=== PATIENT | female | born 1960 | race Caucasian/White ===

== ENCOUNTER 2016-08-13 20:15 | Emergency (ER) | payer BC ==
[2016-08-13 20:34] VITALS: BP 142/78
--- NOTE | 2016-08-13 20:47 | EDM.PDOC ---
ED HISTORY OF PRESENT ILLNESS - General Chief Complaint: Fever Stated Complaint: POSSIBLE FLU? Time Seen by Provider: 08/13/16 20:33 Source of Information: Reports: Patient History Limitations: Reports: No limitations - History of Present Illness INITIAL COMMENTS - FREE TEXT/NARRATIVE: PT STATES SHE DEVELOPED COUGH AND URI SYMPTOMS YESTERDAY. 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 DENIES CP, SOB, FEVER. Symptom Onset Date: 08/11/16 Timing/Duration: Reports: Day(s): Severity: mild Quality: Reports: Ache Improves with: Reports: None Worsens with: Reports: None Associated Symptoms (General): Reports: cough - Related Data Allergies/ADRs: Allergies Allergy/AdvReac Type Severity Reaction Status Date / Time No Known Drug Allergies Allergy Cannot Verified 08/13/16 20:28 Remember Home Meds: Home Meds Albuterol [Ventolin HFA] 1 puff INH Q4H PRN 08/13/16 [History] Pseudoephedrine HCl [Sudafed] 30 mg PO Q6H PRN 08/13/16 [History] ED ROS GENERAL - Review of Systems Review Of Systems: ROS reveals no pertinent complaints other than HPI. Constitutional: Reports: chills, night sweats HEENT: Reports: No symptoms Respiratory: Reports: Cough Cardiovascular: Reports: No symptoms Endocrine: Reports: no symptoms GI/Abdominal: Reports: No symptoms : Reports: no symptoms Musculoskeletal: Reports: no symptoms Skin: Reports: no symptoms Neurological: Reports: No Symptoms Psychiatric: Reports: No symptoms Hematologic/Lymphatic: Reports: no symptoms Immunologic: Reports: no symptoms ED EXAM, GENERAL - Physical Exam Exam: See Below Exam Limited By: No limitations General Appearance: alert, WD/WN, no apparent distress Eye Exam: bilateral eye: normal inspection Ears: normal external exam, normal canal, normal TMs Nose: clear rhinorrhea, other (MUCOSAL ERYTHEMA) Throat/Mouth: Normal inspection, Normal oropharynx, No airway compromise Head: atraumatic, normocephalic Neck: normal inspection. No: lymphadenopathy (L), lymphadenopathy (R) Respiratory/Chest: no respiratory distress, lungs clear, normal breath sounds, no accessory muscle use, chest non-tender Cardiovascular: regular rate, rhythm, no murmur GI/Abdominal: normal bowel sounds, soft, non tender Extremities: normal inspection, no pedal edema Neurological: alert, oriented, normal cognition Psychiatric: normal affect, normal mood Skin Exam: Warm, Dry, Intact, Normal color, No rash Lymphatic: no adenopathy Course - Orders/Labs/Meds Orders: Active Orders 24 hr Category Date Time Status INFLUENZA A+B AG SCREEN [RM] Stat Lab 08/13/16 20:33 Ordered - Re-Assessments/Exams Free Text/Narrative Re-Assessment/Exam: 08/13/16 21:12 PT AFEBRILE, NONTOXIC APPEARING. INFLUENZA NEGATIVE. Departure - Departure Time of Disposition: 21:15 Disposition: Home, Self-Care 01 Condition: good Clinical Impression: URI (upper respiratory infection) Qualifiers: URI type: unspecified viral URI Qualified Code(s): J06.9 - Acute upper respiratory infection, unspecified; B97.89 - Other viral agents as the cause of diseases classified elsewhere Instructions: Upper Respiratory Infection, Adult, [id number] Forms: ED Department Discharge - My Orders Last 24 Hours: My Active Orders 08/13/16 20:33 INFLUENZA A+B AG SCREEN [RM] Stat - Assessment/Plan Last 24 Hours: My Active Orders 08/13/16 20:33 INFLUENZA A+B AG SCREEN [RM] Stat Assessment:: URI Plan: F/U WITH PCP
[2016-08-13] MEDS ORDERED: Ondansetron 4 MG Tab.DIS PO ONE (21:14)
[2016-08-13] MEDS ORDERED: Ondansetron 4 MG Tab.DIS ONE (21:15)
== END 2016-08-13 21:20 | disposition home or self-care (01) ==
LOC: KA.ED 20:15
DX: J06.9 Acute upper respiratory infection, unspecified (principal); B97.89 Other viral agents as the cause of diseases classified elsewhere
CPT/HCPCS: 87804; 99283; A9270

== ENCOUNTER 2017-02-02 09:30 | Emergency (ER) | payer BC ==
[2017-02-02 09:39] VITALS: BP 148/60
[2017-02-02] MEDS ORDERED: Sodium Chloride 0.9% 5 ML Syringe FLUSH PRN (09:46)
[2017-02-02] MEDS ORDERED: Sodium Chloride 0.9% 1,000 ML IV ONE (09:46)
[2017-02-02] MEDS ORDERED: LORazepam 2 MG/ML SDV IVPUSH ONE (09:46)
--- NOTE | 2017-02-02 09:55 | EDM.PDOC ---
ED HPI GENERAL MEDICAL PROBLEM - General Chief Complaint: Respiratory Problem Stated Complaint: SHORTNESS OF BREATH Time Seen by Provider: 02/02/17 09:43 Source of Information: Reports: Patient History Limitations: Reports: No Limitations - History of Present Illness INITIAL COMMENTS - FREE TEXT/NARRATIVE: PT STATES SHE HAS BECOME GRADUALLY MORE SHORT OF BREATH OVER PAST SEVERAL DAYS. BECAME ANXIOUS AND IS ANTICIPATING RHEUMATOLOGY APPOINTMENT ON 02/05 FOR NEW DIAGNOSIS OF LUPUS. SEEN BY DR POON ON 01/29 WITH SUSPECTED PNEUMONIA AND STARTED ON LEVAQUIN/PREDNISONE. DENIES FEVER, CP, N/V. Onset: Gradual Onset Date: 01/29/17 Duration: Day(s): Severity: Mild Improves with: Reports: None Worsens with: Reports: None Associated Symptoms: Reports: Shortness of Breath - Related Data Allergies Allergy/AdvReac Type Severity Reaction Status Date / Time No Known Drug Allergies Allergy Intermediate Rash Verified 02/02/17 10:09 amoxicillin [From Augmentin] Allergy Cannot Verified 02/02/17 09:39 Remember clavulanic acid Allergy Cannot Verified 02/02/17 09:39 [From Augmentin] Remember Home Meds: Home Meds Albuterol [Ventolin HFA] 1 puff INH Q4H PRN 08/13/16 [History] Pseudoephedrine HCl [Sudafed] 30 mg PO Q6H PRN 08/13/16 [History] Albuterol/Ipratropium [DuoNeb 3.0-0.5 MG/3 ML] 1 ampule INH Q4H 02/02/17 [ History] Levofloxacin [Levofloxacin] 750 mg PO DAILY 02/02/17 [History] Ondansetron [Zofran ODT] 4 mg PO Q6H PRN 02/02/17 [History] Past Medical History HEENT History: Reports: Sinusitis Cardiovascular History: Reports: Hypertension Social & Family History - Tobacco Use Smoking Status *Q: Former Smoker Second Hand Smoke Exposure: No - Caffeine Use Caffeine Use: Reports: Coffee - Recreational Drug Use Recreational Drug Use: No ED ROS GENERAL - Review of Systems Review Of Systems: ROS reveals no pertinent complaints other than HPI. Constitutional: Reports: No Symptoms HEENT: Reports: No Symptoms Respiratory: Reports: Shortness of Breath Cardiovascular: Reports: No Symptoms Endocrine: Reports: No Symptoms GI/Abdominal: Reports: No Symptoms : Reports: No Symptoms Musculoskeletal: Reports: No Symptoms Skin: Reports: No Symptoms Neurological: Reports: No Symptoms Psychiatric: Reports: Anxiety Hematologic/Lymphatic: Reports: No Symptoms Immunologic: Reports: No Symptoms ED EXAM, GENERAL - Physical Exam Exam: See Below Exam Limited By: No Limitations General Appearance: Alert, WD/WN, Anxious Eye Exam: Bilateral Eye: Normal Inspection Nose: Normal Inspection, Normal Mucosa, No Blood Throat/Mouth: Normal Inspection, Normal Oropharynx, No Airway Compromise Neck: Normal Inspection Respiratory/Chest: No Respiratory Distress, Lungs Clear, Normal Breath Sounds, No Accessory Muscle Use, Chest Non-Tender Cardiovascular: Regular Rate, Rhythm, No Murmur GI/Abdominal: Normal Bowel Sounds, Soft, Non-Tender Back Exam: Normal Inspection. No: CVA Tenderness (L), CVA Tenderness (R) Extremities: Normal Inspection, No Pedal Edema Neurological: Alert, Oriented, Normal Cognition Psychiatric: Anxious Skin Exam: Warm, Dry, Intact, Normal Color, No Rash Lymphatic: No Adenopathy Course - Vital Signs Last Recorded V/S: Last Vital Signs Temp 97.9 F 02/02/17 09:34 Pulse 67 02/02/17 09:34 Resp 22 H 02/02/17 09:34 BP 148/60 H 02/02/17 09:34 Pulse Ox 97 02/02/17 09:34 - Orders/Labs/Meds Orders: Active Orders 24 hr Category Date Time Status Peripheral IV Care [RC] . DIRECTED Care 02/02/17 09:46 Ordered Chest 2V [CR] Stat Exams 02/02/17 09:43 Ordered CBC WITH AUTO DIFF [HEME] Stat Lab 02/02/17 09:43 Ordered COMPREHENSIVE METABOLIC PN,CMP [CHEM] Stat Lab 02/02/17 09:43 Ordered Sodium Chloride 0.9% @ 999 MLS/HR (1000ml) Med 02/02/17 09:46 Ordered Sodium Chloride 0.9% [Normal Saline] 1,000 ml IV .BOLUS Sodium Chloride 0.9% [Syrex Flush] Med 02/02/17 09:46 Ordered 5 ml FLUSH Q8HR PRN Peripheral IV Insertion Adult [OM.PC] Routine Oth 02/02/17 09:46 Ordered Medication Orders Sodium Chloride (Normal Saline) 1,000 mls @ 999 mls/hr IV .BOLUS ONE Stop: 02/02/17 10:46 Sodium Chloride (Syrex Flush) 5 ml FLUSH Q8HR PRN PRN Reason: Keep Vein Open Meds: Medications Generic Name Dose Route Start Last Admin Trade Name Freq PRN Reason Stop Dose Admin Sodium Chloride 1,000 mls @ 999 mls/hr 02/02/17 09:46 Normal Saline IV 02/02/17 10:46 .BOLUS ONE Sodium Chloride 5 ml 02/02/17 09:46 Syrex Flush FLUSH Q8HR PRN Keep Vein Open Discontinued Medications Generic Name Dose Route Start Last Admin Trade Name Freq PRN Reason Stop Dose Admin Lorazepam 1 mg 02/02/17 09:46 Ativan IVPUSH 02/02/17 09:47 ONETIME ONE - Radiology Interpretation Free Text/Narrative:: CXR NEGATIVE FOR ACUTE PROCESS - Re-Assessments/Exams Free Text/Narrative Re-Assessment/Exam: 02/02/17 11:03 PT AFEBRILE, NONTOXIC APPEARING, VSS, ANXIETY RESOLVED. DISCUSSED CASE WITH DR Raffy BILLY. WILL GIVE ATIVAN PO TO GO FOR AND F/U ON SATURDAY Departure - Departure Time of Disposition: 11:06 Disposition: Home, Self-Care 01 Condition: Good Clinical Impression: Anxiety Pneumonia Qualifiers: Pneumonia type: due to unspecified organism Laterality: unspecified laterality Lung location: unspecified part of lung Qualified Code(s): J18.9 - Pneumonia, unspecified organism - Discharge Information Instructions: Panic Attacks, [id number], Upper Respiratory Infection, Adult, [id number] Referrals: Mildred Montenegro MD [Primary Care Provider] - Additional Instructions: FOLLOW UP WITH RHEUMATOLOGY NEXT WEEK SCHEDULED. CONTACT DR POON FOR MEDICATION REFILL ON SATURDAY. RETURN TO ER SOONER IF SYMPTOMS CONTINUE - My Orders Last 24 Hours: My Active Orders 02/02/17 09:43 Chest 2V [CR] Stat CBC WITH AUTO DIFF [HEME] Stat COMPREHENSIVE METABOLIC PN,CMP [CHEM] Stat 02/02/17 09:46 Peripheral IV Care [RC] . DIRECTED Sodium Chloride 0.9% @ 999 MLS/HR (1000ml) Sodium Chloride 0.9% [Normal Saline] 1,000 ml IV .BOLUS Sodium Chloride 0.9% [Syrex Flush] 5 ml FLUSH Q8HR PRN Peripheral IV Insertion Adult [OM.PC] Routine - Assessment/Plan Last 24 Hours: My Active Orders 02/02/17 09:43 Chest 2V [CR] Stat CBC WITH AUTO DIFF [HEME] Stat COMPREHENSIVE METABOLIC PN,CMP [CHEM] Stat 02/02/17 09:46 Peripheral IV Care [RC] . DIRECTED Sodium Chloride 0.9% @ 999 MLS/HR (1000ml) Sodium Chloride 0.9% [Normal Saline] 1,000 ml IV .BOLUS Sodium Chloride 0.9% [Syrex Flush] 5 ml FLUSH Q8HR PRN Peripheral IV Insertion Adult [OM.PC] Routine Assessment:: ANXIETY Plan: F/U AT CLINIC NEXT WEEK
[2017-02-02 10:43] LABS: SODIUM,NA 145 mmol/L (136-145)
[2017-02-02 10:44] LABS: CHLORIDE,CL 107 mmol/L (98-115)
[2017-02-02] MEDS ORDERED: LORazepam 0.5 MG Tab PO ONE (11:05)
== END 2017-02-02 11:20 | disposition home or self-care (01) ==
LOC: KA.ED 09:30
DX: J18.9 Pneumonia, unspecified organism (principal); F41.9 Anxiety disorder, unspecified; I10 Essential (primary) hypertension; Z88.1 Allergy status to other antibiotic agents; Z88.8 Allergy status to other drugs, medicaments and biological substances; Z79.899 Other long term (current) drug therapy; Z87.891 Personal history of nicotine dependence
CPT/HCPCS: 36415; 71020; 80053; 85025; 96361; 96374; 99285; A9270; J2060; J7030

== ENCOUNTER 2017-04-05 15:25 | Emergency (ER) | payer BC ==
[2017-04-05] MEDS ORDERED: Aspirin 81 MG Tab.Chew PO ONE (16:07)
[2017-04-05] MEDS ORDERED: Morphine 2 MG/ML Syringe IVPUSH ONE (16:08)
[2017-04-05] MEDS ORDERED: Sodium Chloride 0.9% 1,000 ML IV ONE (16:09)
[2017-04-05 16:23] LABS: CHLORIDE,CL 106 mmol/L (98-115); SODIUM,NA 141 mmol/L (136-145)
--- NOTE | 2017-04-05 16:29 | EDM.PDOC ---
ED HPI GENERAL MEDICAL PROBLEM - General Chief Complaint: Chest Pain Stated Complaint: PAIN Time Seen by Provider: 04/05/17 15:35 Source of Information: Reports: Patient, Family () History Limitations: Reports: No Limitations - History of Present Illness INITIAL COMMENTS - FREE TEXT/NARRATIVE: 56-year-old female presents with complaints of heaviness in her legs, acute exacerbation of chronic low back pain. Patient states that she's had a long history of difficulties with her back currently has been seen pain management for injections. She had an MRI lumbar spine, thoracic spine, cervical spine earlier this year. She has multiple levels of foraminal stenosis due to degenerative scoliosis lumbar spine. She's been through physical therapy, medications, and injections for her back pain and leg symptoms. She has not had any significant relief. She states she has a neurosurgical consultation June 2017. She does take some other medications for her low back which include muscle relaxers and also takes medication for some anxiety. She states she stopped all her medications and last 48 hours and that seems to make her symptoms worse. She has had recent treatment for pneumonia and was on antibiotics for this and has completed the medication. She denies chest pain that still feels some shortness of breath. The symptoms all seemed to improve if she is able to lie down and rest. She denies any bowel or bladder incontinence and no saddle paresthesias. Onset: Gradual Duration: Day(s):, Constant, Getting Worse Location: Reports: Chest, Back, Lower Extremity, Left, Lower Extremity, Right Quality: Reports: Ache Severity: Moderate Improves with: Reports: Rest Worsens with: Reports: Movement Associated Symptoms: Reports: Cough, Shortness of Breath, Weakness. Denies: Chest Pain, Diaphoresis, Fever/Chills, Nausea/Vomiting Treatments CHECKERER HAND: Reports: Other (see below) (ms. drew) Back Pain Score (Numeric/FACES): 2 - Related Data Allergies Allergy/AdvReac Type Severity Reaction Status Date / Time amoxicillin [From Augmentin] Allergy Cannot Verified 04/05/17 16:54 Remember clavulanic acid Allergy Cannot Verified 04/05/17 16:54 [From Augmentin] Remember Home Meds: Home Meds Albuterol [Ventolin HFA] 1 puff INH Q4H PRN 08/13/16 [History] Pseudoephedrine HCl [Sudafed] 30 mg PO Q6H PRN 08/13/16 [History] Ondansetron [Zofran ODT] 4 mg PO Q6H PRN 02/02/17 [History] Cyclobenzaprine [Flexeril] 0.5 - 1 tab PO TID PRN 04/05/17 [History] Fluticasone/Salmeterol [Advair 250-50 Diskus] 1 puff INH BID 04/05/17 [History] Hydroxychloroquine [Plaquenil] 1 tab PO DAILY 04/05/17 [History] LORazepam 0.5 - 1 mg PO Q8HR PRN 04/05/17 [History] hydrOXYzine HCl [Atarax] 1 tab PO Q6HR PRN 04/05/17 [History] traMADol [Ultram] 1 tab PO Q6HR 04/05/17 [History] Past Medical History HEENT History: Reports: Sinusitis Cardiovascular History: Reports: Hypertension Respiratory History: Reports: Other (See Below) Other Respiratory History: URI [employer] History: Reports: Musculoskeletal History: Reports: Back Pain, Chronic, Neck Pain, Chronic Neurological History: Reports: Headaches, Chronic Psychiatric History: Reports: Anxiety, Panic Attack Endocrine/Metabolic History: Reports: Other (See Below) Other Endocrine/Metabolic History: LUPUS Immunologic History: Reports: Immunosuppression - Infectious Disease History Infectious Disease History: Reports: Chicken Pox, Measles, Mumps, Rubella - Past Surgical History Respiratory Surgical History: Reports: None Endocrine Surgical History: Reports: None Musculoskeletal Surgical History: Reports: None Social & Family History - Tobacco Use Smoking Status *Q: Current Every Day Smoker Years of Tobacco use: 30 Packs/Tins Daily: 0.5 Second Hand Smoke Exposure: No - Caffeine Use Caffeine Use: Reports: Soda Other Caffeine Use: diet coke. powerade - Recreational Drug Use Recreational Drug Use: No ED ROS GENERAL - Review of Systems Review Of Systems: See Below Constitutional: Reports: Weakness. Denies: Fever, Diaphoresis HEENT: Reports: Other (chronic dizziness) Respiratory: Reports: Shortness of Breath, Cough Cardiovascular: Reports: Dyspnea on Exertion. Denies: Chest Pain, Blood Pressure Problem, Edema, Orthopnea, Palpitations Endocrine: Reports: No Symptoms GI/Abdominal: Denies: Abdominal Pain, Diarrhea, Nausea : Denies: Flank Pain, Incontinence Musculoskeletal: Reports: Neck Pain, Back Pain (chronic) Skin: Denies: Pruritis, Rash Neurological: Reports: Numbness, Tingling, Difficulty Walking, Weakness (legs). Denies: Confusion, Headache Psychiatric: Reports: Anxiety Hematologic/Lymphatic: Reports: No Symptoms Immunologic: Reports: No Symptoms ED EXAM, NEURO - Physical Exam Exam: See Below Exam Limited By: No Limitations General Appearance: Alert, No Apparent Distress, Thin Neck: Normal Inspection Respiratory/Chest: No Respiratory Distress, Crackles (right lung). No: Respiratory Distress, Wheezing Cardiovascular: Normal Peripheral Pulses, Regular Rate, Rhythm, No Edema, No JVD , No Murmur GI/Abdominal: Normal Bowel Sounds, Soft, Non-Tender Neurological: Alert, Normal Mood/Affect, CN II-XII Intact, Normal Plantar Flexion, Normal Reflexes, No Motor/Sensory Deficits, Oriented x 3 DTR: 2+: Patella (R), Patella (L), Achilles (R), Achilles (L) Back Exam: Normal Inspection, Paraspinal Tenderness. No: CVA Tenderness (R), Vertebral Tenderness Extremities: Normal Inspection, Normal Range of Motion, No Pedal Edema, Normal Capillary Refill Psychiatric: Normal Affect, Normal Mood Skin Exam: Warm, Dry, Intact, Normal Color, No Rash. No: Diaphoretic, Ecchymosis, Erythema EKG INTERPRETATION EKG Date: 04/05/17 Time: 15:35 Rhythm: NSR [place]: Normal P-Wave: Present QRS: Normal ST-T: Normal QT: Normal Comparison: NA - No Prior EKG Course - Vital Signs Last Recorded V/S: Last Vital Signs Temp 97.4 F 04/05/17 15:51 Pulse 66 04/05/17 15:51 Resp 20 04/05/17 15:51 BP 142/80 H 04/05/17 15:51 Pulse Ox 99 04/05/17 15:51 - Orders/Labs/Meds Orders: Active Orders 24 hr Category Date Time Status EKG Documentation Completion [RC] ASDIRECTED Care 04/05/17 15:39 Active CXR [Chest 2V] [CR] Stat Exams 04/05/17 16:06 Taken Sodium Chloride 0.9% [Normal Saline] 1,000 ml Med 04/05/17 16:09 Active IV .BOLUS EKG 12 Lead [EK] Routine Ther 04/05/17 15:39 Ordered Medication Orders Sodium Chloride (Normal Saline) 1,000 mls @ 999 mls/hr IV .BOLUS ONE Stop: 04/05/17 17:09 Last Admin: 04/05/17 16:20 Dose: 999 mls/hr Labs: Laboratory Tests 04/05/17 04/05/17 Range/Units 15:50 15:50 WBC 5.0 (5.0-10.0) 10^3/uL RBC 4.82 (3.80-5.50) 10^6/uL Hgb 14.9 (12.0-16.0) g/dL Hct 45.5 (37.0-47.0) % MCV 94.3 H (82.0-92.0) fL MCH 30.9 (27.0-31.0) pg MCHC 32.8 (32.0-36.0) g/dL RDW 13.4 (11.5-14.5) % Plt Count 350 H (150-300) 10^3/uL MPV 8.0 (7.4-10.4) fL Neut % (Auto) 58.2 (50.0-70.0) % Lymph % (Auto) 27.5 (20.0-40.0) % [place] % (Auto) 11.7 H (2.0-8.0) % Eos % (Auto) 1.9 (1.0-3.0) % Baso % (Auto) 0.7 (0.0-1.0) % Neut # (Auto) 2.9 (2.5-7.0) 10^3/uL Lymph # (Auto) 1.4 (1.0-4.0) 10^3/uL [place] # (Auto) 0.6 (0.1-0.8) 10^3/uL Eos # (Auto) 0.1 (0.1-0.3) 10^3/uL Baso # (Auto) 0.0 (0.0-0.1) 10^3/uL Sodium 141 (136-145) mmol/L Potassium 4.1 (3.3-5.3) mmol/L Chloride 106 (98-115) mmol/L Carbon Dioxide 21.3 (21.0-32.0) mmol/L BUN 10 (6-25) mg/dL Creatinine 0.75 (0.51-1.17) mg/dL Est Cr Clr Drug Dosing 67.63 mL/min Estimated GFR (MDRD) > 60 mL/min Glucose 91 (70-110) mg/dL Calcium 9.7 (8.7-10.3) mg/dL Troponin I 0.05 (0.00-0.070) ng/mL Meds: Medications Generic Name Dose Route Start Last Admin Trade Name Freq PRN Reason Stop Dose Admin Sodium Chloride 1,000 mls @ 999 mls/hr 04/05/17 16:09 04/05/17 16:20 Normal Saline IV 04/05/17 17:09 999 mls/hr .BOLUS ONE Administration Discontinued Medications Generic Name Dose Route Start Last Admin Trade Name Freq PRN Reason Stop Dose Admin Aspirin 324 mg 04/05/17 16:07 04/05/17 16:20 Aspirin PO 04/05/17 16:08 324 mg ONETIME ONE Administration Morphine Sulfate 2 mg 04/05/17 16:08 04/05/17 16:26 Morphine IVPUSH 04/05/17 16:09 2 mg ONETIME ONE Administration Departure - Departure Time of Disposition: 17:10 Disposition: Home, Self-Care 01 Condition: Fair Clinical Impression: Acute exacerbation of chronic low back pain, Anxiety - Discharge Information Referrals: Mildred Montenegro MD [Primary Care Provider] - Forms: ED Department Discharge - My Orders Last 24 Hours: My Active Orders 04/05/17 15:39 EKG Documentation Completion [RC] ASDIRECTED EKG 12 Lead [EK] Routine 04/05/17 16:06 CXR [Chest 2V] [CR] Stat 04/05/17 16:09 Sodium Chloride 0.9% [Normal Saline] 1,000 ml IV .BOLUS - Assessment/Plan Last 24 Hours: My Active Orders 04/05/17 15:39 EKG Documentation Completion [RC] ASDIRECTED EKG 12 Lead [EK] Routine 04/05/17 16:06 CXR [Chest 2V] [CR] Stat 04/05/17 16:09 Sodium Chloride 0.9% [Normal Saline] 1,000 ml IV .BOLUS Assessment:: 1.Acute exacerbation of chronic low back pain. 2. Anxiety. Plan: 1. [place] 5/325 one every 4-6 hours for pain. 2. Patient is to take her regular medications as prescribed. 3. Follow-up with Dr. Mildred Garland next week. 4. Recommend rest over the weekend.
[2017-04-05 17:20] VITALS: BP 132/80
== END 2017-04-05 17:30 | disposition home or self-care (01) ==
LOC: KA.ED 15:25
DX: M54.5 Low back pain (principal); G89.29 Other chronic pain; F41.9 Anxiety disorder, unspecified; F17.210 Nicotine dependence, cigarettes, uncomplicated; I10 Essential (primary) hypertension; Z79.899 Other long term (current) drug therapy; Z88.1 Allergy status to other antibiotic agents
CPT/HCPCS: 36415; 71020; 80048; 84484; 85025; 93005; 96361; 96374; 99283; A9270; J2270; J7030

== ENCOUNTER 2017-04-09 15:15 | Emergency (ER) | payer BC ==
[2017-04-09 15:38] VITALS: BP 81/50
[2017-04-09] MEDS ORDERED: Sodium Chloride 0.9% 1,000 ML IV ONE ×2 (15:53→17:18)
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
[2017-04-09] MEDS ORDERED: Azithromycin 250 MG Tab ONE (17:58)
[2017-04-09] MEDS ORDERED: cefTRIAXone 1 GM Vial ONE (17:58)
[2017-04-09] MEDS ORDERED: cefTRIAXone 1 GM Vial IVPUSH ONE (18:01)
== END 2017-04-09 18:00 ==
LOC: KA.ED 15:15
DX: J18.9 Pneumonia, unspecified organism (principal); I95.9 Hypotension, unspecified; D72.825 Bandemia; D70.9 Neutropenia, unspecified; R09.02 Hypoxemia; F17.210 Nicotine dependence, cigarettes, uncomplicated; Z88.1 Allergy status to other antibiotic agents; Z79.899 Other long term (current) drug therapy
CPT/HCPCS: 36415; 71020; 80053; 83605; 85025; 85379; 87040; 96361; 96365; 99285; J0696; J3370; J7030; J7050

== ENCOUNTER 2017-09-07 16:18 | Emergency (ER) | payer BC ==
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
[2017-09-07 16:27] VITALS: BP 141/87
[2017-09-07] MEDS ORDERED: Sodium Chloride 0.9% 5 ML Syringe FLUSH PRN (16:45)
[2017-09-07] MEDS ORDERED: Sodium Chloride 0.9% 1,000 ML IV SCH (17:00)
[2017-09-07] MEDS ORDERED: LORazepam 2 MG/ML SDV IVPUSH ONE (17:23)
[2017-09-07 17:43] LABS: CHLORIDE,CL 107 mmol/L (98-115); SODIUM,NA 143 mmol/L (136-145)
[2017-09-07] MEDS ORDERED: LORazepam 0.5 MG Tab PO PRN (18:28)
== END 2017-09-07 18:55 | disposition home or self-care (01) ==
LOC: KA.ED 16:18
DX: L93.0 Discoid lupus erythematosus (principal); R05 Cough; R23.9 Unspecified skin changes; R11.0 Nausea; R79.89 Other specified abnormal findings of blood chemistry; I10 Essential (primary) hypertension; Z88.1 Allergy status to other antibiotic agents; Z79.899 Other long term (current) drug therapy; Z87.891 Personal history of nicotine dependence
CPT/HCPCS: 71046; 80053; 81001; 82150; 82553; 83605; 83690; 83880; 84484; 85025; 86140; 93005; 96361; 96374; 99284; A9270-GY; J2060; J7030

== ENCOUNTER 2017-10-01 11:52 | Day surgery (SDC) | payer BC ==
[2017-10-01] MEDS ORDERED: Midazolam 1 MG/ML 2 ML SDV ONE (11:55)
[2017-10-01] MEDS ORDERED: fentaNYL 100 MCG/2 ML SDV ONE (11:55)
[2017-10-01] MEDS ORDERED: Propofol 200 MG/20 ML SDV ONE (11:56)
[2017-10-01] MEDS ORDERED: Sodium Chloride 0.9% 5 ML Syringe FLUSH PRN (12:00)
[2017-10-01] MEDS ORDERED: Lidocaine 2% 5 ML SDV ONE (12:02)
[2017-10-01] MEDS: Lactated Ringers 1,000 ML IV SCH (12:47)
[2017-10-01] MEDS ORDERED: Midazolam 1 MG/ML 2 ML SDV IV ONE (13:25)
[2017-10-01] MEDS ORDERED: Propofol 200 MG/20 ML SDV IV ONE (13:25)
[2017-10-01] MEDS ORDERED: fentaNYL 100 MCG/2 ML SDV IV ONE (13:25)
[2017-10-01] MEDS ORDERED: Lidocaine 2% 100 MG/5 ML Syringe IVPUSH ONE (13:25)
--- NOTE | 2017-10-01 13:32 | PCM.PN ---
- General Info Date of Service: 10/01/17 - Review of Systems Systems Review Comment:: 56-year-old female referred for EGD and colonoscopy. She has been having some nausea and reflux symptoms recently. She has never had a prior colonoscopy. She is medically stable to proceed today with no significant change in her health status since her recent history and physical which is reviewed. I have discussed the proposed EGD and colonoscopy with the patient. She understands indications options and risks. Risks reviewed included but were not limited to bleeding and GI injury. She agrees to proceed. - Patient Data Vitals - Most Recent: Last Vital Signs Temp 98.9 F 10/01/17 12:19 Pulse 73 10/01/17 12:19 Resp 18 10/01/17 12:19 BP 110/75 10/01/17 12:19 Pulse Ox 98 10/01/17 12:19 Weight - Most Recent: 58.967 kg Med Orders - Current: Current Medications Lactated Ringer's (Ringers, Lactated) 1,000 mls @ 50 mls/hr IV ASDIRECTED NGUYỄN Last Admin: 10/01/17 12:47 Dose: 50 mls/hr Sodium Chloride (Syrex Flush) 5 ml FLUSH Q8HR PRN PRN Reason: Keep Vein Open Discontinued Medications Fentanyl (Sublimaze) Confirm Administered Dose 100 mcg .ROUTE .STK-MED ONE Stop: 10/01/17 11:56 Lidocaine (Xylocaine-Mpf 2%) Confirm Administered Dose 5 ml .ROUTE .STK-MED ONE Stop: 10/01/17 12:03 Midazolam HCl (Versed 1 Mg/Ml) Confirm Administered Dose 4 mg .ROUTE .STK-MED ONE Stop: 10/01/17 11:56 Propofol (Diprivan 20 Ml) Confirm Administered Dose 400 mg .ROUTE .STK-MED ONE Stop: 10/01/17 11:57 - Problem List Review Problem List Initiated/Reviewed/Updated: Yes - My Orders Last 24 Hours: My Active Orders 10/01/17 12:00 Peripheral IV Care [RC] . DIRECTED Verify Patient Consent Obtain [RC] ASDIRECTED Lactated Ringers [Ringers, Lactated] 1,000 ml IV ASDIRECTED Sodium Chloride 0.9% [Syrex Flush] 5 ml FLUSH Q8HR PRN Peripheral IV Insertion Adult [OM.PC] Routine 10/01/17 12:30 Patient to Empty Bladder [RC] ASDIRECTED 10/01/17 Breakfast Nothing Per Oral Diet [DIET] - Assessment Assessment:: GERD Colon cancer screening - Plan Plan:: EGD and colonoscopy
--- NOTE | 2017-10-01 14:26 | PCM.OPNOTE ---
- General Post-Op/Procedure Note Date of Surgery/Procedure: 10/01/17 Operative Procedure(s): EGD with Biopsy and Colonoscopy with Biopsy Findings: White patches in esophagus suggestive of Angelina Esophagitis Fullness in Rectum suspect Lipomas Pre Op Diagnosis: GERD. Colon Cancer Screening Post-Op Diagnosis: Angelina Esophagitis. Rectal Mass Anesthesia Technique: MAC Primary Surgeon: Kris Chahal Pathology: Biopsies of Gastric Antrum, Esophagus, Rectal Mass EBL in mLs: 3 Complications: None Condition: Good
[2017-10-01 17:21] VITALS: BP 141/62
--- NOTE | 2017-10-01 23:59 | OR ---
DATE OF SURGERY: 10/01/2017 SURGEON: Kris Chahal MD PREOPERATIVE DIAGNOSIS: Acid reflux and colon cancer screening. POSTOPERATIVE DIAGNOSIS: Angelina esophagitis and rectal mass. OPERATION PERFORMED: Esophagogastroduodenoscopy with biopsy and colonoscopy with biopsy. INDICATIONS FOR SURGERY: This 56-year-old female has been hospitalized within the last few months and has been having recent trouble with reflux symptoms. She also has never had a colonoscopy and so she was referred for EGD and colonoscopy. FINDINGS: On upper endoscopy, the patient's esophageal lining is extensively coated with white patches consistent with Angelina esophagitis. The stomach and duodenum appeared normal. The esophagus did not show any other visible abnormalities. On colonoscopy, the patient had two areas of fullness in her rectum. These were approximately 5 cm in from the anal verge. They were soft and the overlying mucosa appeared normal. They seem most consistent with a benign lipomas. The remainder of the colon appeared normal. PROCEDURE IN DETAIL: The patient was taken to the operating room. She was given intravenous sedation, and with her in the left lateral decubitus position, the esophagus was intubated with the Olympus gastroscope, this was carefully advanced down through the esophagus, stomach, and into the duodenum where examination to the third portion was performed. After examining the duodenum, the scope was withdrawn back into the stomach where full examination including retroflexed examination of the fundus was performed. Biopsies of the antrum were taken to rule out H pylori. The esophagus is then carefully examined and findings grossly consistent with Angelina esophagitis was identified. Multiple biopsies of the esophageal lining were taken to confirm the diagnosis. The scope was then removed and attention was turned to the colonoscopy. Digital rectal exam was performed which did demonstrate fullness in the rectum. The Olympus colonoscope was then inserted into the rectum and there appeared to be two areas of benign-appearing fullness, each estimated at 3 cm to 4 cm in size. The overlying mucosa appeared normal, but biopsies of this overlying mucosa are taken through the scope. Retroflex examination of the rectal canal was also performed. The scope was then carefully advanced under direct visualization through the entire length of the colon until cecum was reached. Cecal acquisition was confirmed by noting normal internal cecal anatomy including the appendiceal orifice and ileocecal valve. The scope was then slowly withdrawn sequentially re-examining the colonic segments until the entire colon and rectum had been fully examined. The scope was removed and the patient was taken from the operating room in satisfactory condition. ESTIMATED BLOOD LOSS: 3 mL. COMPLICATIONS: None. PROGNOSIS: Good. /[id number]/MODL
== END 2017-10-01 15:35 | disposition home or self-care (01) ==
LOC: KA.SDS 11:52
PROVIDERS: ATTEND Surgery
DX: K29.50 Unspecified chronic gastritis without bleeding (principal); K20.9 Esophagitis, unspecified; K62.89 Other specified diseases of anus and rectum; Z12.11 Encounter for screening for malignant neoplasm of colon; K21.9 Gastro-esophageal reflux disease without esophagitis; F41.8 Other specified anxiety disorders; Z87.891 Personal history of nicotine dependence; Z79.899 Other long term (current) drug therapy; Z88.1 Allergy status to other antibiotic agents
CPT/HCPCS: J2250; J2704; J3010; J7120

== ENCOUNTER 2017-10-25 11:55 | Emergency (ER) | payer BC ==
[2017-10-25 12:17] VITALS: BP 149/80
--- NOTE | 2017-10-25 12:54 | EDM.PDOC ---
ED HPI GENERAL MEDICAL PROBLEM - General Chief Complaint: General Time Seen by Provider: 10/25/17 12:30 Source of Information: Reports: Patient, Significant Other History Limitations: Reports: No Limitations - History of Present Illness INITIAL COMMENTS - FREE TEXT/NARRATIVE: Patient brought to ER by her with dysuria and a sore on left 4th toe. says she has been mostly in bed for the past week too weak to do much else. She has been drinking lots of water, gatorade and milk she tells me but not much food. No vomiting but some nausea. Soft stools 3-4/day but not diarrhea. She takes Plaquenil for Lupus and Rheumatoid Arthritis. Six months ago she was hospitalized in [place] with pneumonia and sepsis. At that time her left foot and leg were mottled. She has chronic left leg decreased circulation , cause unknown per patient. They noticed the sore on her toe about 1.5 weeks ago. She has been taking AZO for the dysuria. - Related Data Allergies Allergy/AdvReac Type Severity Reaction Status Date / Time amoxicillin [From Augmentin] Allergy Cannot Verified 10/25/17 14:26 Remember clavulanic acid Allergy Cannot Verified 10/25/17 14:26 [From Augmentin] Remember Home Meds: Home Meds Albuterol [Ventolin HFA] 2 puff INH Q4H PRN 08/13/16 [History] Cyclobenzaprine [Flexeril] 5 - 10 mg PO TID PRN 04/05/17 [History] Fluticasone/Salmeterol [Advair 250-50 Diskus] 1 puff INH BID 04/05/17 [History] Hydroxychloroquine [Plaquenil] 400 mg PO DAILY 04/05/17 [History] LORazepam 1 mg PO Q8HR PRN 04/05/17 [History] traMADol [Ultram] 50 mg PO Q6HR PRN 04/05/17 [History] Alclometasone Dipropionate 1 applic TP TID 09/07/17 [History] Fluticasone/Vilanterol [Breo Ellipta 100-25 MCG Inhalation Kit] 1 puff PO DAILY 09/07/17 [History] hydrOXYzine HCl [hydrOXYzine] 25 mg PO Q6H PRN 09/07/17 [History] Acetaminophen [Acetaminophen Extra Strength] 500 mg PO DAILY PRN 09/25/17 [ History] Escitalopram [Lexapro] 5 - 10 mg PO DAILY 09/25/17 [History] Ibuprofen 200 mg PO DAILY PRN 09/25/17 [History] Ipratropium/Albuterol Sulfate [Iprat-Albut 0.5-3(2.5) mg/3 ml] 3 ml IH Q4H PRN 09/25/17 [History] Nicotine Polacrilex [Nicotine Lozenge] 2 mg BC Q1H PRN 09/25/17 [History] Nicotine [Nicotine Patch] 1 patch TD DAILY 09/25/17 [History] Omeprazole 20 mg PO DAILY 09/25/17 [History] Fluconazole [Diflucan] 150 mg PO BID 14 Days #28 tab 10/01/17 [Rx] Past Medical History HEENT History: Reports: Sinusitis Cardiovascular History: Reports: Hypertension Respiratory History: Reports: Bronchitis, Recurrent, Pneumonia, Recurrent, SOB, Other (See Below) Other Respiratory History: URI FREQUENT Gastrointestinal History: Reports: Bowel Obstruction, Chronic Constipation, Hemorrhoids 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: Musculoskeletal History: Reports: Back Pain, Chronic, Neck Pain, Chronic Neurological History: Reports: Headaches, Chronic Psychiatric History: Reports: Anxiety, Panic Attack Endocrine/Metabolic History: Reports: Other (See Below) Other Endocrine/Metabolic History: LUPUS Immunologic History: Reports: Immunosuppression Dermatologic History: Reports: Other (See Below) 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 - Infectious Disease History Infectious Disease History: Reports: Chicken Pox, Measles, Mumps - Past Surgical History Head Surgeries/Procedures: Reports: None Respiratory Surgical History: Reports: None Endocrine Surgical History: Reports: None Musculoskeletal Surgical History: Reports: None Social & Family History - Family History Family Medical History: Noncontributory - Caffeine Use Caffeine Use: Reports: Soda Other Caffeine Use: diet coke. powerade ED ROS GENERAL - Review of Systems Review Of Systems: See Below Constitutional: Reports: Weakness, Fatigue. Denies: Fever, Chills, Diaphoresis HEENT: Reports: No Symptoms Respiratory: Reports: Shortness of Breath (mild when using stairs per ). Denies: Cough Cardiovascular: Denies: Chest Pain, Lightheadedness, Syncope Endocrine: Reports: Fatigue GI/Abdominal: Reports: Nausea. Denies: Abdominal Pain, Vomiting : Reports: Dysuria. Denies: Flank Pain Musculoskeletal: Reports: No Symptoms Skin: Denies: Cyanosis, Jaundice, Mottled, Pallor, Diaphoresis Neurological: Reports: Tingling (left leg and foot), Difficulty Walking (left toe hurts). Denies: Trouble Speaking Psychiatric: Denies: Agitation, Anxiety, Confusion ED EXAM, GENERAL - Physical Exam Exam: See Below Exam Limited By: No Limitations General Appearance: Alert, WD/WN, No Apparent Distress Eye Exam: Bilateral Eye: EOMI, Normal Inspection, PERRL Ears: Normal External Exam, Hearing Grossly Normal Nose: Normal Inspection, No Blood Throat/Mouth: Normal Inspection, Normal Lips, Normal Voice, No Airway Compromise Head: Atraumatic, Normocephalic, Other (malar rash consistent with lupus) Neck: Supple, Non-Tender, Full Range of Motion, Other (non-palpable left carotid pulse). No: Carotid Bruit Cardiovascular: Regular Rate, Rhythm, No Edema, No JVD, No Murmur, No Rub Peripheral Pulses: 0: Carotid (L), Posterior Tibial (L), Dorsalis Pedis (L), 1+ : Radial (L), Radial (R), Posterior Tibial (R), 2+: Carotid (R) GI/Abdominal: Normal Bowel Sounds, Soft, Non-Tender, No Organomegaly, No Distention Back Exam: Normal Inspection, Full Range of Motion. No: CVA Tenderness (L), CVA Tenderness (R) Extremities: Normal Range of Motion, Non-Tender, No Pedal Edema, Slow Capillary Refill (left foot/toes), Redness (left distal toes), Other (left 4th distal toe has 1 cm black, crusted lesion with localized erythema consistent with gangrene by appearance. Sensation is intact distally in foot and toes.). No: Mottled, Pallor Neurological: Alert, Oriented, Normal Cognition, No Motor/Sensory Deficits Psychiatric: Normal Affect, Normal Mood Skin Exam: Warm, Dry, Intact (except toe as described), Cool (left foot), Cyanosis (left foot), Other (cellulitis left toe) Course - Vital Signs Last Recorded V/S: Last Vital Signs Temp 97.1 F 10/25/17 12:06 Pulse 84 10/25/17 12:06 Resp 17 10/25/17 12:06 BP 149/80 H 10/25/17 12:06 Pulse Ox 97 10/25/17 12:06 - Orders/Labs/Meds Orders: Active Orders 24 hr Category Date Time Status CXR [Chest 2V] [CR] Stat Exams 10/25/17 12:43 Ordered CULTURE BLOOD [BC] Stat Lab 10/25/17 13:56 Ordered CULTURE BLOOD [BC] Stat Lab 10/25/17 13:56 Ordered UA W/MICROSCOPIC [URIN] Stat Lab 10/25/17 12:00 Ordered Levofloxacin/Dextrose 5%-Water [Levaquin in D5W 500 MG/ Med 10/25/17 14:10 Ordered 100 ML] 500 mg Premix Bag 1 bag IV ONETIME Sodium Chloride 0.9% [Normal Saline] 100 ml Med 10/25/17 14:15 Active IV ASDIRECTED Blood Culture x2 Reflex Set [OM.PC] Stat Oth 10/25/17 13:56 Ordered Medication Orders Levofloxacin/Dextrose 500 mg/ (Premix) 100 mls @ 100 mls/hr IV ONETIME ONE Stop: 10/25/17 15:09 Last Admin: 10/25/17 14:20 Dose: 100 mls/hr Sodium Chloride (Normal Saline) 100 mls @ 20 mls/hr IV ASDIRECTED NGUYỄN Last Admin: 10/25/17 14:24 Dose: 20 mls/hr Labs: Laboratory Tests 10/25/17 10/25/17 10/25/17 Range/Units 12:00 13:25 13:25 WBC 6.4 (5.0-10.0) 10^3/uL RBC 4.05 (3.80-5.50) 10^6/uL Hgb 12.2 (12.0-16.0) g/dL Hct 36.8 L (37.0-47.0) % MCV 90.8 (82.0-92.0) fL MCH 30.2 (27.0-31.0) pg MCHC 33.2 (32.0-36.0) g/dL RDW 12.7 (11.5-14.5) % Plt Count 333 H (150-300) 10^3/uL MPV 8.0 (7.4-10.4) fL Neut % (Auto) 67.3 (50.0-70.0) % Lymph % (Auto) 22.8 (20.0-40.0) % [place] % (Auto) 8.8 H (2.0-8.0) % Eos % (Auto) 0.5 L (1.0-3.0) % Baso % (Auto) 0.6 (0.0-1.0) % Neut # (Auto) 4.3 (2.5-7.0) 10^3/uL Lymph # (Auto) 1.5 (1.0-4.0) 10^3/uL [place] # (Auto) 0.6 (0.1-0.8) 10^3/uL Eos # (Auto) 0.0 L (0.1-0.3) 10^3/uL Baso # (Auto) 0.0 (0.0-0.1) 10^3/uL Sodium 139 (136-145) mmol/L Potassium 4.2 (3.3-5.3) mmol/L Chloride 100 (98-115) mmol/L Carbon Dioxide 26.3 (21.0-32.0) mmol/L BUN 7 (6-25) mg/dL Creatinine 0.86 (0.51-1.17) mg/dL Est Cr Clr Drug Dosing 58.26 mL/min Estimated GFR (MDRD) > 60 mL/min Glucose 81 (70-110) mg/dL Lactic Acid (0.4-2.0) mmol/L Calcium 8.7 (8.7-10.3) mg/dL Specimen Type Urincc Urine Color Yellow (YELLOW) Urine Appearance Cloudy H (CLEAR) Urine pH 5.0 (5.0-9.0) Ur Specific [place] 1.010 (1.005-1.030) Urine Protein 30 H (NEGATIVE) mg/dL Urine Glucose (UA) 100 H (NEGATIVE) mg/dL Urine Ketones Negative (NEGATIVE) mg/dL Urine Occult Blood Moderate H (NEGATIVE) Urine Nitrite Positive H (NEGATIVE) Urine Bilirubin Negative (NEGATIVE) Urine Urobilinogen 0.2 (0.2-1.0) E.U./dL Ur Leukocyte Esterase Large H (NEGATIVE) Urine RBC 0-5 /HPF Urine WBC Packed /HPF Ur Epithelial Cells Few /LPF Urine Bacteria Many H (NONE TO FEW) /HPF 10/25/17 Range/Units 13:25 WBC (5.0-10.0) 10^3/uL RBC (3.80-5.50) 10^6/uL Hgb (12.0-16.0) g/dL Hct (37.0-47.0) % MCV (82.0-92.0) fL MCH (27.0-31.0) pg MCHC (32.0-36.0) g/dL RDW (11.5-14.5) % Plt Count (150-300) 10^3/uL MPV (7.4-10.4) fL Neut % (Auto) (50.0-70.0) % Lymph % (Auto) (20.0-40.0) % [place] % (Auto) (2.0-8.0) % Eos % (Auto) (1.0-3.0) % Baso % (Auto) (0.0-1.0) % Neut # (Auto) (2.5-7.0) 10^3/uL Lymph # (Auto) (1.0-4.0) 10^3/uL [place] # (Auto) (0.1-0.8) 10^3/uL Eos # (Auto) (0.1-0.3) 10^3/uL Baso # (Auto) (0.0-0.1) 10^3/uL Sodium (136-145) mmol/L Potassium (3.3-5.3) mmol/L Chloride (98-115) mmol/L Carbon Dioxide (21.0-32.0) mmol/L BUN (6-25) mg/dL Creatinine (0.51-1.17) mg/dL Est Cr Clr Drug Dosing mL/min Estimated GFR (MDRD) mL/min Glucose (70-110) mg/dL Lactic Acid 0.8 (0.4-2.0) mmol/L Calcium (8.7-10.3) mg/dL Specimen Type Urine Color (YELLOW) Urine Appearance (CLEAR) Urine pH (5.0-9.0) Ur Specific [place] (1.005-1.030) Urine Protein (NEGATIVE) mg/dL Urine Glucose (UA) (NEGATIVE) mg/dL Urine Ketones (NEGATIVE) mg/dL Urine Occult Blood (NEGATIVE) Urine Nitrite (NEGATIVE) Urine Bilirubin (NEGATIVE) Urine Urobilinogen (0.2-1.0) E.U./dL Ur Leukocyte Esterase (NEGATIVE) Urine RBC /HPF Urine WBC /HPF Ur Epithelial Cells /LPF Urine Bacteria (NONE TO FEW) /HPF Meds: Medications Generic Name Dose Route Start Last Admin Trade Name Freq PRN Reason Stop Dose Admin Levofloxacin/Dextrose 500 mg/ 100 mls @ 100 mls/hr 10/25/17 14:10 10/25/17 14 :20 Premix IV 10/25/17 15:09 100 mls/hr ONETIME ONE Administration Sodium Chloride 100 mls @ 20 mls/hr 10/25/17 14:15 10/25/17 14:24 Normal Saline IV 20 mls/hr ASDIRECTED NGUYỄN Administration Discontinued Medications Generic Name Dose Route Start Last Admin Trade Name Freq PRN Reason Stop Dose Admin Ceftriaxone Sodium 2 gm 10/25/17 13:56 10/25/17 14:11 Rocephin IVPUSH 10/25/17 13:57 Not Given ONETIME ONE - Re-Assessments/Exams Free Text/Narrative Re-Assessment/Exam: 10/25/17 14:01 UA shows significant UTI. Toe appears gangrenous. Will draw blood cultures and start antibiotics. Discussed case with Dr. Trevino (PCP) who agrees with plan to transfer to [place] for vascular and podiatry consults; she also recommends Levaquin which ended up being severe interaction with hydroxyzine so I ordered Rocephin 2 grams. On discussing with patient, she informs me that she isn't taking the hydroxyzine or the diflucan anymore so we will do the Levaquin now. 10/25/17 14:24 Discussed findings with patient and her and they would like to go to [place] today if possible. Discussed case with vascular surgeon, Dr. Gutierrez at [facility] in [place] who accepted for transfer via private vehicle. Departure - Departure Time of Disposition: 14:25 Disposition: DC/Tfer to Acute Hospital 02 Condition: Good Clinical Impression: Gangrene of toe of left foot, Absent carotid pulse - Discharge Information Referrals: Mildred Montenegro MD [Primary Care Provider] - Forms: ED Department Discharge - My Orders Last 24 Hours: My Active Orders 10/25/17 12:00 UA W/MICROSCOPIC [URIN] Stat 10/25/17 12:43 CXR [Chest 2V] [CR] Stat 10/25/17 13:56 CULTURE BLOOD [BC] Stat CULTURE BLOOD [BC] Stat Blood Culture x2 Reflex Set [OM.PC] Stat 10/25/17 14:10 Levofloxacin/Dextrose 5%-Water [Levaquin in D5W 500 MG/100 ML] 500 mg Premix Bag 1 bag IV ONETIME 10/25/17 14:15 Sodium Chloride 0.9% [Normal Saline] 100 ml IV ASDIRECTED - Assessment/Plan Last 24 Hours: My Active Orders 10/25/17 12:00 UA W/MICROSCOPIC [URIN] Stat 10/25/17 12:43 CXR [Chest 2V] [CR] Stat 10/25/17 13:56 CULTURE BLOOD [BC] Stat CULTURE BLOOD [BC] Stat Blood Culture x2 Reflex Set [OM.PC] Stat 10/25/17 14:10 Levofloxacin/Dextrose 5%-Water [Levaquin in D5W 500 MG/100 ML] 500 mg Premix Bag 1 bag IV ONETIME 10/25/17 14:15 Sodium Chloride 0.9% [Normal Saline] 100 ml IV ASDIRECTED
[2017-10-25] MEDS ORDERED: cefTRIAXone 2 GM Vial IVPUSH ONE (13:56)
[2017-10-25 14:06] LABS: CHLORIDE,CL 100 mmol/L (98-115); SODIUM,NA 139 mmol/L (136-145)
[2017-10-25] MEDS ORDERED: Levofloxacin/Dextrose 5%-Water 500 MG in Premix Bag 1 BAG IV ONE (14:10)
[2017-10-25] MEDS ORDERED: Sodium Chloride 0.9% 100 ML IV SCH (14:15)
== END 2017-10-25 15:30 ==
LOC: KA.ED 11:55
DX: I96 Gangrene, not elsewhere classified (principal); R09.89 Other specified symptoms and signs involving the circulatory and respiratory systems; I10 Essential (primary) hypertension; Z88.1 Allergy status to other antibiotic agents; Z79.899 Other long term (current) drug therapy
CPT/HCPCS: 71046; 80048; 81001; 83605; 85025; 87040; 96365; 99285; J1956; J7050

== ENCOUNTER 2018-08-11 21:05 | Emergency (ER) | payer BC ==
[2018-08-11] MEDS ORDERED: Dexamethasone 4 MG/ML SDV IM ONE (21:19)
--- NOTE | 2018-08-11 21:21 | EDM.PDOC ---
ED HPI GENERAL MEDICAL PROBLEM - General Chief Complaint: General Stated Complaint: joint pain Time Seen by Provider: 08/11/18 21:10 Source of Information: Reports: Patient History Limitations: Reports: No Limitations - History of Present Illness INITIAL COMMENTS - FREE TEXT/NARRATIVE: Patient is a 57-year-old female who presents to the emergency department this evening with a complaint of bilateral knee pain. Patient has a history of discoid lupus and is currently being seen by rheumatology. Patient also states that she has intermittent lower extremity edema, however, she has elevated her feet for the last few hours and presents to the ER without any lower extremity edema. Patient denies fever, chest pain, shortness of breath, abdominal pain, lower extremity neuropathy, or any trauma. Discussed case with Dr. Garland, who is her primary care physician, and recommendation was for corticosteroids administered in the ER and prescription for 5 day course. Onset: Gradual Duration: Chronic Location: Reports: Lower Extremity, Left, Lower Extremity, Right Quality: Reports: Ache Severity: Mild Improves with: Reports: None Worsens with: Reports: Movement Context: Denies: Trauma Associated Symptoms: Reports: No Other Symptoms Posterior Leg Pain Score (Numeric/FACES): 3 - Related Data Allergies Allergy/AdvReac Type Severity Reaction Status Date / Time amoxicillin [From Augmentin] Allergy Severe Redness Verified 08/11/18 21:16 clavulanic acid Allergy Severe Redness Verified 08/11/18 21:16 [From Augmentin] fluconazole [From Diflucan] Allergy Confusion Verified 08/11/18 21:16 Home Meds: Home Meds Albuterol [Ventolin HFA] 2 puff INH Q4H PRN 08/13/16 [History] Fluticasone/Salmeterol [Advair 250-50 Diskus] 1 puff INH BID 04/05/17 [History] LORazepam 1 mg PO BID 04/05/17 [History] Alclometasone Dipropionate 1 applic TP BID PRN 09/07/17 [History] Acetaminophen [Acetaminophen Extra Strength] 500 mg PO DAILY PRN 09/25/17 [ History] Ibuprofen 200 mg PO DAILY PRN 09/25/17 [History] Ipratropium/Albuterol Sulfate [Iprat-Albut 0.5-3(2.5) mg/3 ml] 3 ml IH Q4H PRN 09/25/17 [History] Hydroxychloroquine Sulfate [Plaquenil] 400 mg PO Q2D 10/25/17 [History] Clopidogrel Bisulfate [Clopidogrel] 75 mg PO BEDTIME 03/16/18 [History] Cyclobenzaprine HCl 10 mg PO TID PRN 03/16/18 [History] Diclofenac Sodium [Voltaren] 1 applic TP BID PRN 03/16/18 [History] Hydroxychloroquine Sulfate [Plaquenil] 200 mg PO Q2D 03/16/18 [History] Rosuvastatin Calcium 10 mg PO BEDTIME 03/16/18 [History] hydrOXYzine HCl [hydrOXYzine] 25 mg PO Q6H PRN 03/16/18 [History] traMADol HCl [Tramadol HCl] 100 mg PO BID 03/16/18 [History] Aspirin [Halfprin] 81 mg PO DAILY 08/11/18 [History] Bisacodyl [Dulcolax] 5 mg PO ASDIRECTED 08/11/18 [History] Furosemide [Lasix] 20 mg PO DAILY 08/11/18 [History] Nicotine Polacrilex [Nicorette] 2 mg PO Q4HR PRN 08/11/18 [History] Nystatin 100,000 unit PO ASDIRECTED PRN 08/11/18 [History] Omeprazole 20 mg PO DAILY 08/11/18 [History] Prochlorperazine [Compazine] 10 mg PO Q6H PRN 08/11/18 [History] Sennosides/Docusate Sodium [Senexon-S Tablet] 1 tab PO DAILY PRN 08/11/18 [ History] predniSONE [Prednisone] 20 mg PO DAILY #11 tablet 08/11/18 [Rx] Past Medical History HEENT History: Reports: Impaired Vision, Sinusitis Cardiovascular History: Reports: Hypertension Respiratory History: Reports: Bronchitis, Recurrent, Pneumonia, Recurrent, SOB, Other (See Below) Other Respiratory History: URI FREQUENT Gastrointestinal History: Reports: Bowel Obstruction, Chronic Constipation, GERD , Hemorrhoids 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 1/2 of toe. arthritis - feet. degen of disks. 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 - tpo and po tx for same - Infectious Disease History Infectious Disease History: Reports: Chicken Pox, Measles, Mumps - Past Surgical History Head Surgeries/Procedures: Reports: None HEENT Surgical History: Reports: None Cardiovascular Surgical History: Reports: None, Vascular Surgery, Other (See Below) Other Cardiovascular Surgeries/Procedures: stent to L groin artery - baloon to R groin artery - october 2017 Respiratory Surgical History: Reports: None GI Surgical History: Reports: Colonoscopy, EGD Other GI Surgeries/Procedures: 2017 Endocrine Surgical History: Reports: None Neurological Surgical History: Reports: None Musculoskeletal Surgical History: Reports: Amputation Dermatological Surgical History: Reports: None Social & Family History - Family History Family Medical History: Noncontributory - Tobacco Use Smoking Status *Q: Current Every Day Smoker Years of Tobacco use: 35 Packs/Tins Daily: 0.5 - Caffeine Use Caffeine Use: Reports: Soda Other Caffeine Use: diet coke. powerade - Recreational Drug Use Recreational Drug Use: No ED ROS GENERAL - Review of Systems Review Of Systems: ROS reveals no pertinent complaints other than HPI. Constitutional: Reports: No Symptoms HEENT: Reports: No Symptoms Respiratory: Reports: No Symptoms Cardiovascular: Reports: No Symptoms Endocrine: Reports: No Symptoms GI/Abdominal: Reports: No Symptoms : Reports: No Symptoms Musculoskeletal: Reports: Leg Pain, Joint Pain Skin: Reports: No Symptoms Neurological: Reports: No Symptoms Psychiatric: Reports: No Symptoms Hematologic/Lymphatic: Reports: No Symptoms Immunologic: Reports: No Symptoms ED EXAM, GENERAL - Physical Exam Exam: See Below Exam Limited By: No Limitations General Appearance: Alert, WD/WN, No Apparent Distress Throat/Mouth: Normal Inspection, Normal Oropharynx, No Airway Compromise Respiratory/Chest: No Respiratory Distress, Lungs Clear, Normal Breath Sounds, No Accessory Muscle Use, Chest Non-Tender Cardiovascular: Normal Peripheral Pulses, Regular Rate, Rhythm, No Murmur GI/Abdominal: Normal Bowel Sounds, Soft, Non-Tender Back Exam: Normal Inspection. No: CVA Tenderness (L), CVA Tenderness (R) Extremities: No Pedal Edema, Leg Pain (Bilateral knee pain, no edema, erythema, ecchymosis, or crepitus noted.) Neurological: Alert, Oriented, Normal Cognition Psychiatric: Normal Affect, Normal Mood Skin Exam: Warm, Dry, Intact, Normal Color Lymphatic: No Adenopathy Course - Vital Signs Last Recorded V/S: Last Vital Signs Temp 97.2 F 08/11/18 21:07 Pulse 98 08/11/18 21:07 Resp 20 08/11/18 21:07 BP 139/86 08/11/18 21:07 Pulse Ox 99 08/11/18 21:07 - Re-Assessments/Exams Free Text/Narrative Re-Assessment/Exam: 08/11/18 21:26 Patient afebrile, nontoxic appearing, vital signs stable, 8 mg of dexamethasone IM given. Prescription for prednisone 5 days. Patient will follow-up with Dr. Garland Departure - Departure Time of Disposition: 21:27 Disposition: Home, Self-Care 01 Condition: Good Clinical Impression: Discoid lupus Joint pain Qualifiers: Joint pain location: knee Laterality: bilateral Qualified Code(s): M25.561 - Pain in right knee; M25.562 - Pain in left knee - Discharge Information Instructions: Systemic Lupus Erythematosus, Adult, Joint Pain, [id number] Referrals: Mildred Montenegro MD [Physician] - Additional Instructions: Follow-up with Dr. Garland in next 2-3 days. Return to emergency department sooner if symptoms continue or worsen. - Assessment/Plan Assessment:: Lupus Plan: Follow-up with Dr. Garland
[2018-08-11 21:59] VITALS: BP 121/77
== END 2018-08-11 21:58 | disposition home or self-care (01) ==
LOC: KA.ED 21:05
DX: M25.562 Pain in left knee (principal); M25.561 Pain in right knee; L93.0 Discoid lupus erythematosus; I10 Essential (primary) hypertension; F17.210 Nicotine dependence, cigarettes, uncomplicated; Z88.1 Allergy status to other antibiotic agents; Z88.8 Allergy status to other drugs, medicaments and biological substances; Z79.899 Other long term (current) drug therapy
CPT/HCPCS: 96372; 99283; J1100

== ENCOUNTER 2018-09-08 18:44 | Emergency (ER) | payer BC ==
[2018-09-08] MEDS ORDERED: methylPREDNISolone Sodium Succinate 125 MG/2 ML SDV IVPUSH ONE (19:26)
[2018-09-08] MEDS ORDERED: Albuterol/Ipratropium 3.0-0.5 MG/3 ML Neb Soln NEB ONE ×2 (19:26→21:06)
--- NOTE | 2018-09-08 19:33 | EDM.PDOC ---
ED HPI GENERAL MEDICAL PROBLEM - General Chief Complaint: General Stated Complaint: shortness of breath Time Seen by Provider: 09/08/18 19:00 Source of Information: Reports: Patient History Limitations: Reports: No Limitations - History of Present Illness INITIAL COMMENTS - FREE TEXT/NARRATIVE: 57 YO WF presents to ER with shortness of breath and generalized weakness over the past 2 days. Pt has been seen and treated over the last 2 weeks for COPD exacerbation and bronchitis. Pt reports earlier today she felt so weak she was unable to walk without falling. Pt with history of pneumonia and sepsis. Pt denies fever/chills, no nausea/vomiting, no chest pain. Pt reports her shortness of breath has become progressively worse over the last 2 days. Duration: Day(s): (2) Location: Reports: Generalized Severity: Moderate Improves with: Reports: Rest Worsens with: Reports: Breathing, Movement Associated Symptoms: Reports: cough w sputum, Loss of Appetite, Malaise, Shortness of Breath, Weakness. Denies: Confusion, Chest Pain, Fever/Chills, Nausea/Vomiting, Rash, Seizure, Syncope Treatments WATCH CRYSTAL CUTTER: Reports: Other Medication(s) Other Treatments WATCH CRYSTAL CUTTER: Oxycodone at 1100 Left Buttock Pain Score (Numeric/FACES): 5 - Related Data Allergies Allergy/AdvReac Type Severity Reaction Status Date / Time amoxicillin [From Augmentin] Allergy Severe Redness Verified 09/08/18 19:02 clavulanic acid Allergy Severe Redness Verified 09/08/18 19:02 [From Augmentin] fluconazole [From Diflucan] Allergy Confusion Verified 09/08/18 19:02 Home Meds: Home Meds Albuterol [Ventolin HFA] 2 puff INH Q4H PRN 08/13/16 [History] Fluticasone/Salmeterol [Advair 250-50 Diskus] 1 puff INH BID 04/05/17 [History] LORazepam 1 mg PO BID 04/05/17 [History] Alclometasone Dipropionate 1 applic TP BID PRN 09/07/17 [History] Acetaminophen [Acetaminophen Extra Strength] 500 mg PO DAILY PRN 09/25/17 [ History] Ibuprofen 200 mg PO DAILY PRN 09/25/17 [History] Ipratropium/Albuterol Sulfate [Iprat-Albut 0.5-3(2.5) mg/3 ml] 3 ml IH Q4H PRN 09/25/17 [History] Hydroxychloroquine Sulfate [Plaquenil] 400 mg PO Q2D 10/25/17 [History] Clopidogrel Bisulfate [Clopidogrel] 75 mg PO BEDTIME 03/16/18 [History] Cyclobenzaprine HCl 10 mg PO TID PRN 03/16/18 [History] Diclofenac Sodium [Voltaren] 1 applic TP BID PRN 03/16/18 [History] Hydroxychloroquine Sulfate [Plaquenil] 200 mg PO Q2D 03/16/18 [History] Rosuvastatin Calcium 10 mg PO BEDTIME 03/16/18 [History] hydrOXYzine HCl [hydrOXYzine] 25 mg PO Q6H PRN 03/16/18 [History] traMADol HCl [Tramadol HCl] 100 mg PO BID 03/16/18 [History] Aspirin [Halfprin] 81 mg PO DAILY 08/11/18 [History] Bisacodyl [Dulcolax] 5 mg PO ASDIRECTED 08/11/18 [History] Furosemide [Lasix] 20 mg PO BID 08/11/18 [History] Omeprazole 20 mg PO DAILY 08/11/18 [History] Prochlorperazine [Compazine] 10 mg PO Q6H PRN 08/11/18 [History] Sennosides/Docusate Sodium [Senexon-S Tablet] 1 tab PO DAILY PRN 08/11/18 [ History] Past Medical History HEENT History: Reports: Impaired Vision, Sinusitis Cardiovascular History: Reports: Hypertension Respiratory History: Reports: Bronchitis, Recurrent, Pneumonia, Recurrent, SOB, Other (See Below) Other Respiratory History: URI FREQUENT Gastrointestinal History: Reports: Bowel Obstruction, Chronic Constipation, GERD , Hemorrhoids [employer] History: Reports: Musculoskeletal History: Reports: Amputation, Arthritis, Back Pain, Chronic, Neck Pain, Chronic, Other (See Below) Other Musculoskeletal History: L 3. 1/2 of toe. arthritis - feet. degen of disks. 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 - tpo and po tx for same - Infectious Disease History Infectious Disease History: Reports: Chicken Pox, Measles, Mumps - Past Surgical History Head Surgeries/Procedures: Reports: None HEENT Surgical History: Reports: None Cardiovascular Surgical History: Reports: None, Vascular Surgery, Other (See Below) Other Cardiovascular Surgeries/Procedures: stent to L groin artery - baloon to R groin artery - october 2017 Respiratory Surgical History: Reports: None GI Surgical History: Reports: Colonoscopy, EGD Other GI Surgeries/Procedures: 2017 Endocrine Surgical History: Reports: None Neurological Surgical History: Reports: None Musculoskeletal Surgical History: Reports: Amputation Dermatological Surgical History: Reports: None Social & Family History - Family History Family Medical History: Noncontributory - Caffeine Use Caffeine Use: Reports: Soda Other Caffeine Use: diet coke. powerade ED ROS GENERAL - Review of Systems Review Of Systems: See Below Constitutional: Reports: Weakness, Fatigue HEENT: Reports: No Symptoms Respiratory: Reports: Shortness of Breath, Cough, Sputum Cardiovascular: Reports: No Symptoms Endocrine: Reports: No Symptoms GI/Abdominal: Reports: No Symptoms : Reports: No Symptoms Musculoskeletal: Reports: No Symptoms Skin: Reports: No Symptoms Neurological: Reports: No Symptoms Psychiatric: Reports: No Symptoms Hematologic/Lymphatic: Reports: No Symptoms Immunologic: Reports: No Symptoms ED EXAM, GENERAL - Physical Exam Exam: See Below Exam Limited By: No Limitations General Appearance: Alert, WD/WN, No Apparent Distress Eye Exam: Bilateral Eye: EOMI, PERRL Nose: Normal Inspection, Normal Mucosa, No Blood Throat/Mouth: Normal Inspection, Normal Lips, Normal Teeth, Normal Gums, Normal Oropharynx, Normal Voice, No Airway Compromise Head: Atraumatic, Normocephalic Neck: Normal Inspection, Supple, Non-Tender, Full Range of Motion Respiratory/Chest: No Respiratory Distress, Rhonchi, Wheezing, Accessory Muscle Use, Prolonged Expiration Cardiovascular: Normal Peripheral Pulses, Regular Rate, Rhythm, No Edema, No Gallop, No JVD, No Murmur, No Rub GI/Abdominal: Normal Bowel Sounds, Soft, Non-Tender, No Organomegaly, No Distention, No Abnormal Bruit, No Mass Back Exam: Normal Inspection, Full Range of Motion, NT Extremities: Normal Inspection, Normal Range of Motion, Non-Tender, Normal Capillary Refill, Pedal Edema Neurological: Alert, Oriented, CN II-XII Intact, Normal Cognition, Normal Gait, Normal Reflexes, No Motor/Sensory Deficits Psychiatric: Normal Affect, Normal Mood Skin Exam: Warm, Dry, Intact, Normal Color, No Rash Lymphatic: No Adenopathy Course - Vital Signs Last Recorded V/S: Last Vital Signs Temp 37.0 C 09/08/18 18:50 Pulse 104 H 09/08/18 20:30 Resp 20 09/08/18 20:30 BP 114/56 L 09/08/18 20:30 Pulse Ox 93 L 09/08/18 21:10 - Orders/Labs/Meds Orders: Active Orders 24 hr Category Date Time Status Cardiac Monitoring [RC] . DIRECTED Care 09/08/18 19:32 Active EKG Documentation Completion [RC] ASDIRECTED Care 09/08/18 19:26 Active Peripheral IV Care [RC] . DIRECTED Care 09/08/18 19:26 Active RT Aerosol Therapy [RC] ASDIRECTED Care 09/08/18 19:26 Active RT Aerosol Therapy [RC] ASDIRECTED Care 09/08/18 21:07 Active ABG [BLOOD GAS ARTERIAL] [BG] Stat Lab 09/08/18 20:23 Ordered CULTURE BLOOD [BC] Stat Lab 09/08/18 21:06 Ordered CULTURE BLOOD [BC] Stat Lab 09/08/18 21:06 Ordered Sodium Chloride 0.9% [Saline Flush] Med 09/08/18 19:26 Active 10 ml FLUSH Q8HR PRN Vancomycin 1 gm Med 09/08/18 21:06 Active Sodium Chloride 0.9% [Normal Saline] 250 ml IV ONETIME Blood Culture x2 Reflex Set [OM.PC] Stat Oth 09/08/18 21:06 Ordered Peripheral IV Insertion Adult [OM.PC] Routine Oth 09/08/18 19:26 Ordered EKG 12 Lead [EK] Routine Ther 09/08/18 19:26 Ordered Medication Orders Vancomycin HCl 1 gm/ Sodium (Chloride) 250 mls @ 167 mls/hr IV ONETIME ONE Stop: 09/08/18 22:35 Sodium Chloride (Saline Flush) 10 ml FLUSH Q8HR PRN PRN Reason: keep vein open Last Admin: 09/08/18 20:03 Dose: 10 ml Admin: 09/08/18 20:00 Dose: 10 ml Labs: Laboratory Tests 09/08/18 09/08/18 09/08/18 Range/Units 19:40 19:40 20:20 WBC 12.73 H (5.00-10.00) 10^3/uL RBC 3.42 L (3.80-5.50) 10^6/uL Hgb 10.2 L D (12.0-16.0) g/dL Hct 29.5 L (37.0-47.0) % MCV 86.3 (82.0-92.0) fL MCH 29.8 (27.0-31.0) pg MCHC 34.6 (32.0-36.0) g/dL RDW 16.0 H (11.5-14.5) % Plt Count 277 (150-400) 10^3/uL MPV 10.4 (7.4-10.4) fL Immature Gran % (Auto) 0.2 (0.0-5.0) % Neut % (Auto) 84.5 H (50.0-70.0) % Lymph % (Auto) 8.2 L (20.0-40.0) % [place] % (Auto) 6.9 (2.0-8.0) % Eos % (Auto) 0.0 L (1.0-3.0) % Baso % (Auto) 0.2 (0.0-1.0) % Immature Gran # (Auto) 0.03 (0.00-0.50) 10^3/uL Neut # (Auto) 10.76 H (2.50-7.00) 10^3/uL Lymph # (Auto) 1.04 (1.00-4.00) 10^3/uL [place] # (Auto) 0.88 H (0.10-0.80) 10^3/uL Eos # (Auto) 0.00 L (0.10-0.30) 10^3/uL Baso # (Auto) 0.02 (0.00-0.10) 10^3/uL Sodium 138 (136-145) mmol/L Potassium 3.3 D (3.3-5.3) mmol/L Chloride 98 (98-115) mmol/L Carbon Dioxide 25.7 (21.0-32.0) mmol/L Anion Gap 17.6 H (5-15) mmol/L BUN 12 (6-25) mg/dL Creatinine 1.01 (0.51-1.17) mg/dL Est Cr Clr Drug Dosing 49.61 mL/min Estimated GFR (MDRD) 56 mL/min Glucose 112 H (75 - 99) mg/dL Lactic Acid 2.4 H (0.4-2.0) mmol/L Calcium 8.2 L (8.7-10.3) mg/dL Total Bilirubin 0.4 (0.2-1.0) mg/dL AST 51 H (15-37) U/L ALT 18 (12-78) U/L Alkaline Phosphatase 88 (46-116) IU/L Creatine Kinase 939 H* (26-276) U/L CK-MB (CK-2) 4.00 (0.00-4.30) ng/mL Troponin I < 0.04 (0.00-0.070) ng/mL B-Natriuretic Peptide 134 H (0-100) pg/mL Total Protein 6.7 (6.4-8.2) g/dL Albumin 2.56 L (3.00-4.80) g/dL Specimen Type Urine Color (YELLOW) Urine Appearance (CLEAR) Urine pH (5.0-9.0) Ur Specific [place] (1.005-1.030) Urine Protein (NEGATIVE) mg/dL Urine Glucose (UA) (NEGATIVE) mg/dL Urine Ketones (NEGATIVE) mg/dL Urine Occult Blood (NEGATIVE) Urine Nitrite (NEGATIVE) Urine Bilirubin (NEGATIVE) Urine Urobilinogen (0.2-1.0) E.U./dL Ur Leukocyte Esterase (NEGATIVE) Urine RBC (0-5) /HPF Urine WBC (0-5) /HPF Ur Epithelial Cells /LPF Urine Bacteria (NONE TO FEW) /HPF 09/08/18 Range/Units 20:30 WBC (5.00-10.00) 10^3/uL RBC (3.80-5.50) 10^6/uL Hgb (12.0-16.0) g/dL Hct (37.0-47.0) % MCV (82.0-92.0) fL MCH (27.0-31.0) pg MCHC (32.0-36.0) g/dL RDW (11.5-14.5) % Plt Count (150-400) 10^3/uL MPV (7.4-10.4) fL Immature Gran % (Auto) (0.0-5.0) % Neut % (Auto) (50.0-70.0) % Lymph % (Auto) (20.0-40.0) % [place] % (Auto) (2.0-8.0) % Eos % (Auto) (1.0-3.0) % Baso % (Auto) (0.0-1.0) % Immature Gran # (Auto) (0.00-0.50) 10^3/uL Neut # (Auto) (2.50-7.00) 10^3/uL Lymph # (Auto) (1.00-4.00) 10^3/uL [place] # (Auto) (0.10-0.80) 10^3/uL Eos # (Auto) (0.10-0.30) 10^3/uL Baso # (Auto) (0.00-0.10) 10^3/uL Sodium (136-145) mmol/L Potassium (3.3-5.3) mmol/L Chloride (98-115) mmol/L Carbon Dioxide (21.0-32.0) mmol/L Anion Gap (5-15) mmol/L BUN (6-25) mg/dL Creatinine (0.51-1.17) mg/dL Est Cr Clr Drug Dosing mL/min Estimated GFR (MDRD) mL/min Glucose (75 - 99) mg/dL Lactic Acid (0.4-2.0) mmol/L Calcium (8.7-10.3) mg/dL Total Bilirubin (0.2-1.0) mg/dL AST (15-37) U/L ALT (12-78) U/L Alkaline Phosphatase (46-116) IU/L Creatine Kinase (26-276) U/L CK-MB (CK-2) (0.00-4.30) ng/mL Troponin I (0.00-0.070) ng/mL B-Natriuretic Peptide (0-100) pg/mL Total Protein (6.4-8.2) g/dL Albumin (3.00-4.80) g/dL Specimen Type Urinvoid Urine Color Yellow (YELLOW) Urine Appearance Slightly cloudy H (CLEAR) Urine pH 5.5 (5.0-9.0) Ur Specific [place] 1.025 (1.005-1.030) Urine Protein 30 H (NEGATIVE) mg/dL Urine Glucose (UA) Negative (NEGATIVE) mg/dL Urine Ketones Negative (NEGATIVE) mg/dL Urine Occult Blood Trace-intact H (NEGATIVE) Urine Nitrite Negative (NEGATIVE) Urine Bilirubin Negative (NEGATIVE) Urine Urobilinogen 0.2 (0.2-1.0) E.U./dL Ur Leukocyte Esterase Negative (NEGATIVE) Urine RBC 0-5 (0-5) /HPF Urine WBC 5-10 H (0-5) /HPF Ur Epithelial Cells Moderate H /LPF Urine Bacteria Few (NONE TO FEW) /HPF Meds: Medications Generic Name Dose Route Start Last Admin Trade Name Tito PRN Reason Stop Dose Admin Vancomycin HCl 1 gm/ Sodium 250 mls @ 167 mls/hr 09/08/18 21:06 Chloride IV 09/08/18 22:35 ONETIME ONE Sodium Chloride 10 ml 09/08/18 19:26 09/08/18 20:03 Saline Flush FLUSH 10 ml Q8HR PRN Administration keep vein open Discontinued Medications Generic Name Dose Route Start Last Admin Trade Name Tito PRN Reason Stop Dose Admin Albuterol/Ipratropium 3 ml 09/08/18 19:26 09/08/18 20:00 Duoneb 3.0-0.5 Mg/3 Ml NEB 09/08/18 19:27 3 ml ONETIME ONE Administration Albuterol/Ipratropium 3 ml 09/08/18 21:06 09/08/18 21:10 Duoneb 3.0-0.5 Mg/3 Ml NEB 09/08/18 21:07 3 ml ONETIME ONE Administration Piperacillin Sod/Tazobactam 100 mls @ 200 mls/hr 09/08/18 21:15 Sod 4.5 gm/ Sodium Chloride IV 09/08/18 21:44 Q6H ONE Methylprednisolone Sodium Succinate 125 mg 09/08/18 19:26 09/08/18 20:01 Solu-Medrol IVPUSH 09/08/18 19:27 125 mg ONETIME ONE Administration - Radiology Interpretation Free Text/Narrative:: CXR- Interstitial pneumonitis - Re-Assessments/Exams Free Text/Narrative Re-Assessment/Exam: 09/08/18 21:46 Pt improved after duoneb tx x 2; Discussed case with Dr Garland- due to extensive medical problems, previous intubation due to sepsis and respiratory failure it is best to transfer patient to a higher level of care at this time. Departure - Departure Time of Disposition: 21:35 Disposition: DC/Tfer to [facility] Condition: Serious Clinical Impression: Hypoxia, Lactic acid blood increased CAP (community acquired pneumonia) Qualifiers: Laterality: unspecified laterality Qualified Code(s): J18.9 - Pneumonia, unspecified organism - Discharge Information Referrals: Mildred Montenegro MD [Primary Care Provider] - Forms: ED Department Discharge, Interfacility Transfer EMTALA - My Orders Last 24 Hours: My Active Orders 09/08/18 19:26 EKG Documentation Completion [RC] ASDIRECTED Peripheral IV Care [RC] . DIRECTED RT Aerosol Therapy [RC] ASDIRECTED Sodium Chloride 0.9% [Saline Flush] 10 ml FLUSH Q8HR PRN Peripheral IV Insertion Adult [OM.PC] Routine EKG 12 Lead [EK] Routine 09/08/18 19:32 Cardiac Monitoring [RC] . DIRECTED 09/08/18 20:23 ABG [BLOOD GAS ARTERIAL] [BG] Stat 09/08/18 21:06 CULTURE BLOOD [BC] Stat CULTURE BLOOD [BC] Stat Vancomycin 1 gm Sodium Chloride 0.9% [Normal Saline] 250 ml IV ONETIME Blood Culture x2 Reflex Set [OM.PC] Stat 09/08/18 21:07 RT Aerosol Therapy [RC] ASDIRECTED - Assessment/Plan Last 24 Hours: My Active Orders 09/08/18 19:26 EKG Documentation Completion [RC] ASDIRECTED Peripheral IV Care [RC] . DIRECTED RT Aerosol Therapy [RC] ASDIRECTED Sodium Chloride 0.9% [Saline Flush] 10 ml FLUSH Q8HR PRN Peripheral IV Insertion Adult [OM.PC] Routine EKG 12 Lead [EK] Routine 09/08/18 19:32 Cardiac Monitoring [RC] . DIRECTED 09/08/18 20:23 ABG [BLOOD GAS ARTERIAL] [BG] Stat 09/08/18 21:06 CULTURE BLOOD [BC] Stat CULTURE BLOOD [BC] Stat Vancomycin 1 gm Sodium Chloride 0.9% [Normal Saline] 250 ml IV ONETIME Blood Culture x2 Reflex Set [OM.PC] Stat 09/08/18 21:07 RT Aerosol Therapy [RC] ASDIRECTED Assessment:: 1. Bilateral Interstitial Pneumonia 2. elevated lactic acid Plan: 1. transfer to [facility]- Dr Beavers 2. IVF 3. zosyn/vanco 4. duonebs 5. O2 NC 3L
[2018-09-08] MEDS: Sodium Chloride 0.9% 10 ML Syringe FLUSH PRN ×2 (20:00→20:03)
--- NOTE | 2018-09-08 20:07 | CR ---
[id number] RAD/RAD Chest PA And Lateral EXAM: RAD Chest PA And Lateral INDICATION: PT WEAK AND WOBBLING, DYSPNEA COMPARISON: June 05, 2018. DISCUSSION: Cardiac mediastinal silhouette is enlarged but stable. Pulmonary vascular congestion with patchy airspace opacification bilaterally. No pleural effusion or pneumothorax. IMPRESSION: Findings consistent with congestive heart failure exacerbation. Sidney Perdomo DO 09/08/182005 Thank you for allowing us to participate in the care of your patient.
[2018-09-08 20:27] LABS: ANION GAP 17.6 mmol/L (5-15); CHLORIDE,CL 98 mmol/L (98-115); SODIUM,NA 138 mmol/L (136-145)
[2018-09-08] MEDS ORDERED: Piperacillin/Tazobactam 4.5 GM in Sodium Chloride 0.9% 100 ML IV ONE (21:15)
[2018-09-08] MEDS ORDERED: Acetaminophen 500 MG Tab ONE (21:59)
[2018-09-08] MEDS ORDERED: Acetaminophen 500 MG Tab PO ONE (22:02)
[2018-09-08] MEDS ORDERED: Piperacillin/Tazobactam/Dext 50 ML IV SCH (22:30)
[2018-09-09 00:37] VITALS: BP 105/56
== END 2018-09-08 22:30 ==
LOC: KA.ED 18:44
DX: J84.9 Interstitial pulmonary disease, unspecified (principal); R74.0 Nonspecific elevation of levels of transaminase and lactic acid dehydrogenase [LDH]; Z79.899 Other long term (current) drug therapy; Z88.8 Allergy status to other drugs, medicaments and biological substances; Z88.1 Allergy status to other antibiotic agents
CPT/HCPCS: 71046; 80053; 81001; 82550; 82553; 83605; 83880; 84484; 85025; 87040; 93005; 94640; 96374; 96375; 99285-25; A9270-GY; J2543; J2930; J7030; J7620-GY

== ENCOUNTER 2019-09-16 18:28 | Emergency (ER) | payer BC, OTHER ==
[2019-09-16 18:40] VITALS: BP 106/62; PULSE 93
[2019-09-16 19:21] LABS: ANION GAP 15.1 mmol/L (5-15)
--- NOTE | 2019-09-16 19:24 | EDM.PDOC ---
ED HPI GENERAL MEDICAL PROBLEM - General Chief Complaint: General Stated Complaint: SHORT OF BREATH Time Seen by Provider: 09/16/19 19:09 Source of Information: Reports: Patient History Limitations: Reports: No Limitations - History of Present Illness INITIAL COMMENTS - FREE TEXT/NARRATIVE: Patient presents with dyspnea and tightness in her lungs. No cough. This started a little over an hour ago, after she awoke from a nap. Earlier today she felt okay. She felt similar to this 10 days ago and started on a course of Levaquin that she finished today. She gets upper respiratory infections frequently and is also prone to get pneumonia. She doesn't feel like the Levaquin worked very well. She did a Duoneb before coming to ER and also took a Lorazepam since she was feeling anxious. - Related Data Allergies Allergy/AdvReac Type Severity Reaction Status Date / Time amoxicillin [From Augmentin] Allergy Severe Redness Verified 07/09/19 16:36 clavulanic acid Allergy Severe Redness Verified 07/09/19 16:36 [From Augmentin] fluconazole [From Diflucan] Allergy Confusion Verified 07/09/19 16:36 Home Meds: Home Meds Albuterol [Ventolin HFA] 2 puff INH Q4H PRN 08/13/16 [History] LORazepam 1 mg PO BID 04/05/17 [History] Alclometasone Dipropionate 1 applic TP BID PRN 09/07/17 [History] Acetaminophen [Acetaminophen Extra Strength] 500 mg PO DAILY PRN 09/25/17 [ History] Ibuprofen 200 mg PO DAILY PRN 09/25/17 [History] Ipratropium/Albuterol Sulfate [Iprat-Albut 0.5-3(2.5) mg/3 ml] 3 ml IH Q4H PRN 09/25/17 [History] Hydroxychloroquine Sulfate [Plaquenil] 400 mg PO Q2D 10/25/17 [History] Cyclobenzaprine HCl 10 mg PO TID PRN 03/16/18 [History] Diclofenac Sodium [Voltaren] 1 applic TP BID PRN 03/16/18 [History] Hydroxychloroquine Sulfate [Plaquenil] 200 mg PO Q2D 03/16/18 [History] Rosuvastatin Calcium 10 mg PO BEDTIME 03/16/18 [History] hydrOXYzine HCL [hydrOXYzine] 25 mg PO Q6H PRN 03/16/18 [History] traMADol HCl [Tramadol HCl] 100 mg PO BID 03/16/18 [History] Aspirin [Halfprin] 81 mg PO DAILY 08/11/18 [History] Furosemide [Lasix] 20 mg PO DAILY PRN 08/11/18 [History] Prochlorperazine [Compazine] 10 mg PO Q6H PRN 08/11/18 [History] bisacodyL [Dulcolax] 5 mg PO ASDIRECTED 08/11/18 [History] Docusate Sodium [Colace] 300 mg PO BEDTIME 09/16/19 [History] oxyCODONE 10 mg PO DAILY@1200 09/16/19 [History] tiZANidine [Zanaflex] 4 mg PO BID PRN 09/16/19 [History] Past Medical History HEENT History: Reports: Impaired Vision, Sinusitis Cardiovascular History: Reports: Hypertension Respiratory History: Reports: Bronchitis, Recurrent, Pneumonia, Recurrent, SOB, Other (See Below) Other Respiratory History: URI FREQUENT Gastrointestinal History: Reports: Bowel Obstruction, Chronic Constipation, GERD , Hemorrhoids [employer] History: Reports: Musculoskeletal History: Reports: Amputation, Arthritis, Back Pain, Chronic, Neck Pain, Chronic, SLE, Other (See Below) Other Musculoskeletal History: L 3. 1/2 of toe. arthritis - feet. degen of disks. 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 - tpo and po tx for same - Infectious Disease History Infectious Disease History: Reports: Chicken Pox, Measles, Mumps - Past Surgical History Head Surgeries/Procedures: Reports: None HEENT Surgical History: Reports: None Cardiovascular Surgical History: Reports: None, Vascular Surgery, Other (See Below) Other Cardiovascular Surgeries/Procedures: stent to L groin artery - baloon to R groin artery - october 2017 Respiratory Surgical History: Reports: None GI Surgical History: Reports: Colonoscopy, EGD Other GI Surgeries/Procedures: 2017 Endocrine Surgical History: Reports: None Neurological Surgical History: Reports: None Musculoskeletal Surgical History: Reports: Amputation Oncologic Surgical History: Reports: None Dermatological Surgical History: Reports: None Social & Family History - Family History Family Medical History: Noncontributory - Tobacco Use Smoking Status *Q: Current Some Day Smoker Years of Tobacco use: 40 Packs/Tins Daily: 0.1 Second Hand Smoke Exposure: No - Caffeine Use Caffeine Use: Reports: Coffee, Soda Other Caffeine Use: diet coke. powerade - Recreational Drug Use Recreational Drug Use: No ED ROS GENERAL - Review of Systems Review Of Systems: See Below Constitutional: Reports: Malaise (achy), Fatigue. Denies: Fever, Chills, Weakness HEENT: Denies: Ear Pain, Throat Pain, Vision Change Respiratory: Reports: Shortness of Breath, Wheezing (at home). Denies: Cough, Sputum Cardiovascular: Denies: Chest Pain, Lightheadedness, Syncope GI/Abdominal: Reports: Nausea. Denies: Abdominal Pain, Vomiting : Denies: Dysuria, Flank Pain Musculoskeletal: Denies: Neck Pain, Shoulder Pain, Arm Pain, Back Pain, Hand Pain Skin: Denies: Cyanosis, Jaundice, Mottled, Pallor, Diaphoresis Neurological: Denies: Confusion, Dizziness, Headache, Seizure, Syncope, Trouble Speaking, Difficulty Walking Psychiatric: Denies: Agitation, Anxiety, Confusion ED EXAM, GENERAL - Physical Exam Exam: See Below Exam Limited By: No Limitations General Appearance: Alert, WD/WN, No Apparent Distress Eye Exam: Bilateral Eye: EOMI, Normal Inspection, PERRL Ears: Normal External Exam, Hearing Grossly Normal Nose: Normal Inspection, No Blood Throat/Mouth: Normal Inspection, Normal Voice, No Airway Compromise Head: Atraumatic, Normocephalic Neck: Normal Inspection, Full Range of Motion Respiratory/Chest: No Respiratory Distress, No Accessory Muscle Use, Crackles ( quite significant in bilat bases and upper anterior lungs but posterior auscultation sounds clear in upper lungs). No: Decreased Breath Sounds, Rhonchi , Wheezing, Stridor, Prolonged Expiration Cardiovascular: Regular Rate, Rhythm, No Murmur GI/Abdominal: No Distention Back Exam: Normal Inspection, Full Range of Motion. No: CVA Tenderness (L), CVA Tenderness (R) Extremities: Normal Inspection, Normal Range of Motion, No Pedal Edema Neurological: Alert, Oriented, Normal Cognition, No Motor/Sensory Deficits Psychiatric: Normal Affect, Normal Mood Skin Exam: Warm, Dry, Intact, Normal Color, No Rash Course - Vital Signs Last Recorded V/S: Last Vital Signs Temp 97.7 F 09/16/19 18:36 Pulse 93 09/16/19 18:36 Resp 20 09/16/19 18:36 BP 106/62 09/16/19 18:36 Pulse Ox 93 L 09/16/19 18:36 - Orders/Labs/Meds Labs: Laboratory Tests 09/16/19 09/16/19 Range/Units 18:55 18:55 WBC 5.16 (5.00-10.00) 10^3/uL RBC 4.18 (3.80-5.50) 10^6/uL Hgb 13.2 (12.0-16.0) g/dL Hct 37.6 (37.0-47.0) % MCV 90.0 (82.0-92.0) fL MCH 31.6 H (27.0-31.0) pg MCHC 35.1 (32.0-36.0) g/dL RDW 13.2 (11.5-14.5) % Plt Count 256 (150-400) 10^3/uL MPV 9.2 (7.4-10.4) fL Immature Gran % (Auto) 0.2 (0.0-5.0) % Neut % (Auto) 61.0 (50.0-70.0) % Lymph % (Auto) 26.2 (20.0-40.0) % [place] % (Auto) 11.4 H (2.0-8.0) % Eos % (Auto) 0.8 L (1.0-3.0) % Baso % (Auto) 0.4 (0.0-1.0) % Immature Gran # (Auto) 0.01 (0.00-0.50) 10^3/uL Neut # (Auto) 3.15 (2.50-7.00) 10^3/uL Lymph # (Auto) 1.35 (1.00-4.00) 10^3/uL [place] # (Auto) 0.59 (0.10-0.80) 10^3/uL Eos # (Auto) 0.04 L (0.10-0.30) 10^3/uL Baso # (Auto) 0.02 (0.00-0.10) 10^3/uL Sodium 139 (136-145) mmol/L Potassium 2.9 L (3.3-5.3) mmol/L Chloride 99 (98-115) mmol/L Carbon Dioxide 27.8 (21.0-32.0) mmol/L Anion Gap 15.1 H (5-15) mmol/L BUN 9 (6-25) mg/dL Creatinine 0.97 (0.51-1.17) mg/dL Est Cr Clr Drug Dosing 51.02 mL/min Estimated GFR (MDRD) 59 mL/min Glucose 119 H (75 - 99) mg/dL Calcium 8.4 L (8.7-10.3) mg/dL Total Bilirubin 0.3 (0.2-1.0) mg/dL AST 25 (15-37) U/L ALT 28 (12-78) U/L Alkaline Phosphatase 96 (46-116) IU/L B-Natriuretic Peptide 15 (0-100) pg/mL Total Protein 7.1 (6.4-8.2) g/dL Albumin 3.50 (3.00-4.80) g/dL - Re-Assessments/Exams Free Text/Narrative Re-Assessment/Exam: 09/16/19 20:24 Labs and CXR are good. Discussed findings and treatment options with patient. With her significant history of multiple pneumonia, even including being on ventilator in ICU for multiple weeks, I offered to give her a Rx for Z-pack to start if symptoms return. Since she just finished a course of Levaquin, I feel Zithromax will be a good option to cover atypicals. Patient agrees with this plan and is feeling quite well now. Much better than she had at home. Her DuoNeb and Lorazepam likely effected this but will have Zithromax if needed. Patient stable at discharge. 09/16/19 20:34 We also discussed her slighly low potassium. She says she gets that sometimes and has a supplement at home that she doesn't take regularly. I advised her to take it for a few days and follow up with her PCP. She agreed. Departure - Departure Time of Disposition: 20:20 Disposition: Home, Self-Care 01 Condition: Good Clinical Impression: Anxiety, Hypokalemia Dyspnea Qualifiers: Dyspnea type: shortness of breath Qualified Code(s): R06.02 - Shortness of breath URI (upper respiratory infection) Qualifiers: URI type: unspecified URI Qualified Code(s): J06.9 - Acute upper respiratory infection, unspecified - Discharge Information Referrals: Keeley Real PA-C [Primary Care Provider] - Forms: ED Department Discharge Additional Instructions: Use your DuoNeb at home at least twice a day until your symptoms improve. Continue your Lorazepam as directed for anxiety. If symptoms worsen again tomorrow either start the Z-pack or follow up with your PCP. Return to ER if needed. Sepsis Event Note - Evaluation Sepsis Screening Result: No Definite Risk - Focused Exam Vital Signs: Vital Signs Temp Pulse Resp BP Pulse Ox 09/16/19 18:36 97.7 F 93 20 106/62 93 L Date Exam was Performed: 09/16/19 Time Exam was Performed: 20:29
--- NOTE | 2019-09-16 19:45 | CR ---
[id number] RAD/RAD Chest PA And Lateral EXAM: FRONTAL AND LATERAL CHEST INDICATION: Cough and shortness of breath. COMPARISON: July 09, 2019. DISCUSSION: Stable bibasilar scarring. Biconvex curvature of the thoracolumbar spine has not appreciably changed. Normal heart size. No acute infiltrates. IMPRESSION: 1. No acute findings. Shlomo Vo MD 09/16/19 1944 Thank you for allowing us to participate in the care of your patient.
== END 2019-09-16 20:39 | disposition home or self-care (01) ==
LOC: KA.ED 18:28
DX: J06.9 Acute upper respiratory infection, unspecified (principal); E87.6 Hypokalemia; F41.9 Anxiety disorder, unspecified; M19.90 Unspecified osteoarthritis, unspecified site; F41.0 Panic disorder [episodic paroxysmal anxiety]; F17.210 Nicotine dependence, cigarettes, uncomplicated; Z88.1 Allergy status to other antibiotic agents; Z88.8 Allergy status to other drugs, medicaments and biological substances; Z79.899 Other long term (current) drug therapy; Z79.82 Long term (current) use of aspirin
CPT/HCPCS: 36415; 71046; 80053; 83880; 85025; 99285-25

== ENCOUNTER 2020-03-01 11:30 | Emergency (ER) | payer BC, OTHER ==
[2020-03-01 12:00] VITALS: BP 128/78; PULSE 104
--- NOTE | 2020-03-01 12:09 | EDM.PDOC ---
ED HPI GENERAL MEDICAL PROBLEM - General Stated Complaint: RESPITORY Time Seen by Provider: 03/01/20 11:41 Source of Information: Reports: Patient History Limitations: Reports: No Limitations - History of Present Illness INITIAL COMMENTS - FREE TEXT/NARRATIVE: patient presents emergency room for respiratory distress and wheezing Covid-19 infection 4 days ago. Initially she was seen in the walk-in clinic prescribed Levaquin and cough syrup and prednisone for her usual bronchitis/pneumonia. 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 She does have history of being on the ventilator for respiratory failure when she gets lower respiratory infections. Currently patient complains of body aches fever chills congestion productive cough with clear frothy sputum. - Related Data Allergies Allergy/AdvReac Type Severity Reaction Status Date / Time amoxicillin [From Augmentin] Allergy Severe Redness Verified 03/01/20 12:04 clavulanic acid Allergy Severe Redness Verified 03/01/20 12:04 [From Augmentin] fluconazole [From Diflucan] Allergy Confusion Verified 03/01/20 12:04 Home Meds: Home Meds Albuterol [Ventolin HFA] 2 puff INH Q4H PRN 08/13/16 [History] LORazepam 1 mg PO BID 04/05/17 [History] Alclometasone Dipropionate 1 applic TP BID PRN 09/07/17 [History] Acetaminophen [Acetaminophen Extra Strength] 500 mg PO DAILY PRN 09/25/17 [History] Ibuprofen 200 mg PO DAILY PRN 09/25/17 [History] Ipratropium/Albuterol Sulfate [Iprat-Albut 0.5-3(2.5) mg/3 ml] 3 ml IH Q4H PRN 09/25/17 [History] Hydroxychloroquine Sulfate [Plaquenil] 400 mg PO Q2D 10/25/17 [History] Cyclobenzaprine HCl 10 mg PO TID PRN 03/16/18 [History] Diclofenac Sodium [Voltaren] 1 applic TP BID PRN 03/16/18 [History] Hydroxychloroquine Sulfate [Plaquenil] 200 mg PO Q2D 03/16/18 [History] Rosuvastatin Calcium 10 mg PO BEDTIME 03/16/18 [History] hydrOXYzine HCL [hydrOXYzine] 25 mg PO Q6H PRN 03/16/18 [History] traMADol HCl [Tramadol HCl] 100 mg PO BID 03/16/18 [History] Aspirin [Halfprin] 81 mg PO DAILY 08/11/18 [History] Furosemide [Lasix] 20 mg PO DAILY PRN 08/11/18 [History] Prochlorperazine [Compazine] 10 mg PO Q6H PRN 08/11/18 [History] bisacodyL [Dulcolax] 5 mg PO ASDIRECTED 08/11/18 [History] Docusate Sodium [Colace] 300 mg PO BEDTIME 09/16/19 [History] oxyCODONE 10 mg PO DAILY@1200 09/16/19 [History] tiZANidine [Zanaflex] 4 mg PO BID PRN 09/16/19 [History] Past Medical History HEENT History: Reports: Impaired Vision, Sinusitis Cardiovascular History: Reports: Hypertension Respiratory History: Reports: Bronchitis, Recurrent, Pneumonia, Recurrent, SOB, Other (See Below) Other Respiratory History: URI FREQUENT Gastrointestinal History: Reports: Bowel Obstruction, Chronic Constipation, GERD, Hemorrhoids [employer]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 1/2 of toe. arthritis - feet. degen of disks. 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 - tpo and po tx for same - Infectious Disease History Infectious Disease History: Reports: Chicken Pox, Measles, Mumps - Past Surgical History Head Surgeries/Procedures: Reports: None HEENT Surgical History: Reports: None Cardiovascular Surgical History: Reports: None, Vascular Surgery, Other (See Below) Other Cardiovascular Surgeries/Procedures: stent to L groin artery - baloon to R groin artery - october 2017 Respiratory Surgical History: Reports: None GI Surgical History: Reports: Colonoscopy, EGD Other GI Surgeries/Procedures: 2017 Endocrine Surgical History: Reports: None Neurological Surgical History: Reports: None Musculoskeletal Surgical History: Reports: Amputation Oncologic Surgical History: Reports: None Dermatological Surgical History: Reports: None Social & Family History - Family History Family Medical History: Noncontributory - Caffeine Use Caffeine Use: Reports: Coffee, Soda Other Caffeine Use: diet coke. powerade ED ROS GENERAL - Review of Systems Review Of Systems: See Below Constitutional: Reports: Fever, Weakness, Fatigue HEENT: Reports: Throat Pain Respiratory: Reports: Shortness of Breath, Wheezing, Cough, Sputum Cardiovascular: Reports: Dyspnea on Exertion. Denies: Chest Pain Endocrine: Reports: Fatigue GI/Abdominal: Denies: Abdominal Pain Musculoskeletal: Reports: Muscle Pain Skin: Denies: Rash Neurological: Reports: Headache Psychiatric: Reports: No Symptoms ED EXAM, GENERAL - Physical Exam Exam: See Below Exam Limited By: No Limitations General Appearance: Alert, WD/WN Eye Exam: Bilateral Eye: EOMI, PERRL Nose: Normal Inspection, Normal Mucosa Throat/Mouth: Normal Inspection, Normal Lips, No Airway Compromise Head: Atraumatic, Normocephalic Neck: Normal Inspection, Supple, Non-Tender Respiratory/Chest: No Accessory Muscle Use, Chest Non-Tender, Decreased Breath Sounds, Crackles, Rhonchi, Wheezing. No: Stridor, Retractions Cardiovascular: No Edema, No Murmur, Tachycardia Peripheral Pulses: 2+: Radial (L), Radial (R) GI/Abdominal: Normal Bowel Sounds, Soft, Non-Tender Extremities: Normal Inspection, Normal Range of Motion, Non-Tender Neurological: Alert, Oriented, Normal Cognition Psychiatric: Normal Affect, Normal Mood Skin Exam: Warm, Dry, Intact, Other (poor color, cyanosis/grayish) Course - Vital Signs Last Recorded V/S: Last Vital Signs Temp 99.1 F 03/01/20 11:40 Pulse 104 H 03/01/20 11:40 Resp 32 H 03/01/20 11:40 BP 128/78 03/01/20 11:40 Pulse Ox 77 L 03/01/20 11:40 - Orders/Labs/Meds Labs: Laboratory Tests 03/01/20 03/01/20 03/01/20 Range/Units 12:05 12:05 12:05 WBC 5.94 (5.00-10.00) 10^3/uL RBC 3.76 L (3.80-5.50) 10^6/uL Hgb 11.3 L (12.0-16.0) g/dL Hct 33.1 L (37.0-47.0) % MCV 88.0 (82.0-92.0) fL MCH 30.1 (27.0-31.0) pg MCHC 34.1 (32.0-36.0) g/dL RDW 14.4 (11.5-14.5) % Plt Count 210 (150-400) 10^3/uL MPV 10.8 H (7.4-10.4) fL Immature Gran % (Auto) 0.3 (0.0-5.0) % Neut % (Auto) 87.2 H (50.0-70.0) % Lymph % (Auto) 7.1 L (20.0-40.0) % [place] % (Auto) 5.1 (2.0-8.0) % Eos % (Auto) 0.0 L (1.0-3.0) % Baso % (Auto) 0.3 (0.0-1.0) % Neut # (Auto) 5.18 (2.50-7.00) 10^3/uL Lymph # (Auto) 0.42 L (1.00-4.00) 10^3/uL [place] # (Auto) 0.30 (0.10-0.80) 10^3/uL Eos # (Auto) 0.00 L (0.10-0.30) 10^3/uL Baso # (Auto) 0.02 (0.00-0.10) 10^3/uL Immature Gran # (Auto) 0.02 (0.00-0.50) 10^3/uL POC ABG pH (7.35-7.45) pH POC ABG pCO2 (35-48) mmHg POC ABG pO2 (83-108) mmHg POC ABG HCO3 (21-28) mmol/L ABG O2 Sat (Calculated) (94-98) % POC ABG Base Excess (-2-3) mmol/L Sodium 130 L D (136-145) mmol/L Potassium 3.3 (3.3-5.3) mmol/L Chloride 96 L (98-115) mmol/L Carbon Dioxide 21.7 (21.0-32.0) mmol/L Anion Gap 15.6 H (5-15) mmol/L BUN 16 (6-25) mg/dL Creatinine 0.85 (0.51-1.17) mg/dL Est Cr Clr Drug Dosing 49.92 mL/min Estimated GFR (MDRD) > 60 mL/min Glucose 157 H (75 - 99) mg/dL Lactic Acid 1.7 (0.4-2.0) mmol/L Calcium 8.4 L (8.7-10.3) mg/dL Total Bilirubin 0.5 (0.2-1.0) mg/dL AST 122 H (15-37) U/L ALT 83 H (12-78) U/L Alkaline Phosphatase 67 (46-116) IU/L Total Protein 7.1 (6.4-8.2) g/dL Albumin 2.34 L (3.00-4.80) g/dL 10/13/20 Range/Units 12:13 WBC (5.00-10.00) 10^3/uL RBC (3.80-5.50) 10^6/uL Hgb (12.0-16.0) g/dL Hct (37.0-47.0) % MCV (82.0-92.0) fL MCH (27.0-31.0) pg MCHC (32.0-36.0) g/dL RDW (11.5-14.5) % Plt Count (150-400) 10^3/uL MPV (7.4-10.4) fL Immature Gran % (Auto) (0.0-5.0) % Neut % (Auto) (50.0-70.0) % Lymph % (Auto) (20.0-40.0) % [place] % (Auto) (2.0-8.0) % Eos % (Auto) (1.0-3.0) % Baso % (Auto) (0.0-1.0) % Neut # (Auto) (2.50-7.00) 10^3/uL Lymph # (Auto) (1.00-4.00) 10^3/uL [place] # (Auto) (0.10-0.80) 10^3/uL Eos # (Auto) (0.10-0.30) 10^3/uL Baso # (Auto) (0.00-0.10) 10^3/uL Immature Gran # (Auto) (0.00-0.50) 10^3/uL POC ABG pH 7.4 (7.35-7.45) pH POC ABG pCO2 31 L (35-48) mmHg POC ABG pO2 58 L (83-108) mmHg POC ABG HCO3 20 L (21-28) mmol/L ABG O2 Sat (Calculated) 90.6 L (94-98) % POC ABG Base Excess -5 L (-2-3) mmol/L Sodium (136-145) mmol/L Potassium (3.3-5.3) mmol/L Chloride (98-115) mmol/L Carbon Dioxide (21.0-32.0) mmol/L Anion Gap (5-15) mmol/L BUN (6-25) mg/dL Creatinine (0.51-1.17) mg/dL Est Cr Clr Drug Dosing mL/min Estimated GFR (MDRD) mL/min Glucose (75 - 99) mg/dL Lactic Acid (0.4-2.0) mmol/L Calcium (8.7-10.3) mg/dL Total Bilirubin (0.2-1.0) mg/dL AST (15-37) U/L ALT (12-78) U/L Alkaline Phosphatase (46-116) IU/L Total Protein (6.4-8.2) g/dL Albumin (3.00-4.80) g/dL - Re-Assessments/Exams Free Text/Narrative Re-Assessment/Exam: 03/01/20 12:07 labs and chest 1 view ordered stat, 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 going to x round o with labs and chest 1 view, not going to wait for labs to return patient is at 4.5 L of NC spo2 96%. R 33, she is in mild resp. distress. Patient is a full code. EMS were called. 03/01/20 12:25 Departure - Departure Time of Disposition: 12:08 Disposition: Admitted As Inpatient 66 Condition: Serious Clinical Impression: COVID-19 Respiratory failure Qualifiers: Chronicity: acute Respiratory failure complication: hypoxia Qualified Code(s): J96.01 - Acute respiratory failure with hypoxia Clinical Impression: (Ruled Out): Hypoxia - Discharge Information *PRESCRIPTION DRUG MONITORING PROGRAM REVIEWED*: No *COPY OF PRESCRIPTION DRUG MONITORING REPORT IN PATIENT DAMIÁN: No Referrals: Keeley Real PA-C [Primary Care Provider] - Forms: ED Department Discharge Sepsis Event Note (ED) - Evaluation Sepsis Screening Result: Possible Sepsis Risk
--- NOTE | 2020-03-01 12:24 | CR ---
[id number] RAD/RAD Chest PA or AP 1V EXAM: SINGLE VIEW CHEST. INDICATION: VIRAL INFECTION SHORTNESS OF BREATH COMPARISON: CORRELATION IS MADE WITH SEPTEMBER 16, 2019 FINDINGS: Extensive bilateral infiltrates are seen The cardiac silhouette is stable IMPRESSION: EXTENSIVE BILATERAL PNEUMONIA Kalyan Majano MD 03/01/20 [id number] Thank you for allowing us to participate in the care of your patient.
[2020-03-01 12:47] LABS: ANION GAP 15.6 mmol/L (5-15); CHLORIDE,CL 96 mmol/L (98-115); SODIUM,NA 130 mmol/L (136-145)
== END 2020-03-01 12:35 | disposition critical access hospital (66) ==
LOC: KA.ED 11:30
DX: U07.1 COVID-19 (principal); J96.01 Acute respiratory failure with hypoxia; I10 Essential (primary) hypertension; F41.9 Anxiety disorder, unspecified; M19.90 Unspecified osteoarthritis, unspecified site; Z88.1 Allergy status to other antibiotic agents; Z88.8 Allergy status to other drugs, medicaments and biological substances; Z79.899 Other long term (current) drug therapy; Z79.82 Long term (current) use of aspirin
CPT/HCPCS: 36415; 36600; 71045; 80053; 82803; 83605; 85025; 99285-25

== ENCOUNTER 2020-11-14 07:29 | Inpatient (IN) | payer MEDICARE, BC, OTHER ==
[2020-11-14] MEDS ORDERED: CLOBETASOL PROPIONATE TOP PRN (12:20)
[2020-11-14] MEDS ORDERED: tiZANidine 4 MG Tab PO PRN (12:20)
[2020-11-14] MEDS ORDERED: Ibuprofen 200 MG Tab PO PRN (12:20)
[2020-11-14] MEDS ORDERED: Cyclobenzaprine 10 MG Tab PO PRN (12:20)
[2020-11-14] MEDS ORDERED: Bisacodyl 5 MG Tab PO PRN (12:20)
[2020-11-14] MEDS ORDERED: Albuterol/Ipratropium 3.0-0.5 MG/3 ML Neb Soln INH PRN (12:20)
[2020-11-14] MEDS ORDERED: Diclofenac Sodium 1% Gel 100 GM Tube TOP PRN (12:20)
[2020-11-14] MEDS ORDERED: Acetaminophen 500 MG Tab PO PRN (12:20)
[2020-11-14] MEDS ORDERED: Hydroxychloroquine 200 MG Tab PO SCH ×2 (12:30)
[2020-11-14] MEDS ORDERED: Docusate Sodium 100 MG Cap PO SCH (12:30)
[2020-11-14] MEDS ORDERED: Albuterol 8 GM Inhaler INH PRN (12:36)
--- NOTE | 2020-11-14 13:07 | PCM.HP.2 ---
H&P History of Present Illness - General Date of Service: 11/14/20 Admit Problem/Dx: Admission Diagnosis/Problem Admission Diagnosis/Problem Wound - History of Present Illness Initial Comments - Free Text/Narative: Nguyen is admitted swingbed 11/14 after an inpatient stay at [facility] for an open scalp wound with osteomyelitis and MRSA bacteremia. She was hospitalized 11/03 - 11/14. She initially presented to myself in the clinic on 11/02 for a wound on her scalp she claimed happened 4-5 days prior to her evaluated. She states she hit her head on a bold. Upon examination the wound appeared much more chronic in nature and her skull was exposed. I did a wound culture which grew out MRSA. She was counseled to present to dermatology on 11/03 and after seeing it they instructed her to present to [facility] where she was then admitted and had further work-up. 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 Reportedly she had had some intralesional kenalog injections at [facility] in [place] in the previous months. Of note, in the hospital her blood cultures grew out MRSA and she was started on vancomycin with a stop date of 12/21/2019 for a total of 8 weeks. She did undergo debridement with plastic surgery and biopsy is still pending. If there is any malignancy then ENT will become involved. She currently has a wound vac in place. She is very deconditioned and will need PT and OT services. - Related Data Allergies/Adverse Reactions: Allergies Allergy/AdvReac Type Severity Reaction Status Date / Time amoxicillin [From Augmentin] Allergy Severe Redness Verified 11/13/20 08:28 clavulanic acid Allergy Severe Redness Verified 11/13/20 08:28 [From Augmentin] bupropion Allergy Cannot Verified 11/13/20 08:28 Remember fluconazole [From Diflucan] Allergy Confusion Verified 11/13/20 08:28 Home Medications: Home Meds Albuterol [Ventolin HFA] 2 puff INH Q4H PRN 08/13/16 [History] LORazepam 1 mg PO TID PRN 04/05/17 [History] Acetaminophen [Acetaminophen Extra Strength] 500 mg PO DAILY PRN 09/25/17 [History] Rosuvastatin Calcium 10 mg PO BEDTIME 03/16/18 [History] Furosemide [Lasix] 20 mg PO BID 08/11/18 [History] Prochlorperazine [Compazine] 10 mg PO Q6H PRN 08/11/18 [History] oxyCODONE 10 mg PO Q6H PRN 09/16/19 [History] Clobetasol Propionate 1 applic TOP DAILY PRN 11/02/20 [History] Fluocinonide [Lidex 0.05% Top Soln] 1 applic TOP DAILY 11/02/20 [History] L.acidoph,Paracasei, B.lactis [Probiotic] 2 cap PO DAILY 11/02/20 [History] Potassium Chloride [Klor-Con M20] 40 meq PO DAILY 11/02/20 [History] Sertraline HCl [Zoloft] 50 mg PO DAILY 11/02/20 [History] Albuterol/Ipratropium [DuoNeb 3.0-0.5 MG/3 ML] 3 ml INH Q4H PRN 11/13/20 [History] Cyclobenzaprine [Flexeril] 10 mg PO TID PRN 11/13/20 [History] Cholecalciferol (Vitamin D3) [Vitamin D3] 2,000 unit PO DAILY 11/14/20 [History] Nystatin [Nystop] 1 applic TP BID 11/14/20 [History] Omeprazole 20 mg PO BID 11/14/20 [History] Pramipexole [Mirapex] 1 mg PO TID 11/14/20 [History] Sennosides/Docusate Sodium [Senna-Docusate Sodium Tablet] 2 tab PO BID PRN 11/14/20 [History] Vancomycin 1 gm IV Q12H 11/14/20 [History] hydrOXYzine HCL [Atarax] 25 mg PO Q6H PRN 11/14/20 [History] Past Medical History HEENT History: Reports: Impaired Vision, Sinusitis Cardiovascular History: Reports: Hypertension Respiratory History: Reports: Bronchitis, Recurrent, Pneumonia, Recurrent, SOB, Other (See Below) Other Respiratory History: URI FREQUENT Gastrointestinal History: Reports: Bowel Obstruction, Chronic Constipation, GERD, Hemorrhoids [employer] History: Reports: Musculoskeletal History: Reports: Amputation, Arthritis, Back Pain, Chronic, Neck Pain, Chronic, SLE, Other (See Below) Other Musculoskeletal History: L 3. 1/2 of toe. arthritis - feet. degen of disks. 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 - tpo and po tx for same - Infectious Disease History Infectious Disease History: Reports: Chicken Pox, Measles, Mumps - Past Surgical History Head Surgeries/Procedures: Reports: None HEENT Surgical History: Reports: None Cardiovascular Surgical History: Reports: None, Vascular Surgery, Other (See Below) Other Cardiovascular Surgeries/Procedures: stent to L groin artery - baloon to R groin artery - october 2017 Respiratory Surgical History: Reports: None GI Surgical History: Reports: Colonoscopy, EGD Other GI Surgeries/Procedures: 2017 Endocrine Surgical History: Reports: None Neurological Surgical History: Reports: None Musculoskeletal Surgical History: Reports: Amputation Oncologic Surgical History: Reports: None Dermatological Surgical History: Reports: None Social & Family History - Family History Family Medical History: No Pertinent Family History - Caffeine Use Caffeine Use: Reports: Coffee, Soda Other Caffeine Use: diet coke. powerade H&P Review of Systems - Review of Systems: Review Of Systems: Comprehensive ROS is negative, except as noted in HPI. Exam - Exam Exam: See Below - Exam Quality Assessment: Central Line/PICC, Other (Wound vac on scalp.) General: Alert, Oriented, Cooperative Lungs: Clear to Auscultation, Normal Respiratory Effort Cardiovascular: Regular Rate, Regular Rhythm GI/Abdominal Exam: Normal Bowel Sounds Extremities: No Pedal Edema Problem List Initiated/Reviewed/Updated: Yes Orders Last 24hrs: Active Orders 24 hr Category Date Time Status Patient Status [ADT] Routine ADT 11/14/20 12:15 Active Oxygen Therapy [RC] PRN Care 11/14/20 12:15 Active RT Aerosol Therapy [RC] ASDIRECTED Care 11/14/20 12:22 Active Up With Assistance [RC] ASDIRECTED Care 11/14/20 12:15 Active VTE/DVT Education [RC] PER UNIT ROUTINE Care 11/14/20 12:15 Active Vital Signs [RC] DAILY Care 11/14/20 12:15 Active OT Evaluation and Treatment [CONS] Routine Cons 11/14/20 12:15 Active PT Evaluation and Treatment [CONS] Routine Cons 11/14/20 12:15 Active Regular Diet [DIET] Diet 11/14/20 Lunch Active Acetaminophen [Tylenol Extra Strength] Med 11/14/20 12:20 Ordered 500 mg PO DAILY PRN Albuterol [Ventolin HFA] Med 11/14/20 12:36 Ordered 0 gm INH Q4H PRN Albuterol/Ipratropium [DuoNeb 3.0-0.5 MG/3 ML] Med 11/14/20 12:20 Ordered 3 ml INH Q4H PRN Aspirin [Halfprin] Med 11/15/20 09:00 Ordered 81 mg PO DAILY Clobetasol Propionate [Clobetasol Propionate] Med 11/14/20 12:20 Ordered 1 applic TOP DAILY PRN Cyclobenzaprine [Flexeril] Med 11/14/20 12:20 Ordered 10 mg PO TID PRN Diclofenac Sodium [Voltaren 1% Gel] Med 11/14/20 12:20 Ordered DOSE gm TOP BID PRN Docusate Sodium [Colace] Med 11/14/20 12:30 Ordered 100 mg PO Q48H Fluocinonide [Lidex 0.05% Top Soln] Med 11/15/20 09:00 Ordered 1 applic TOP DAILY Fluticasone Propionate [Flonase] Med 11/14/20 21:00 Ordered DOSE gm NASBOTH BID Furosemide [Lasix] Med 11/14/20 21:00 Ordered 20 mg PO BID Hydroxychloroquine [Plaquenil] Med 11/14/20 12:30 Ordered 200 mg PO Q2D Hydroxychloroquine [Plaquenil] Med 11/14/20 12:30 Ordered 400 mg PO Q2D Ibuprofen [Motrin] Med 11/14/20 12:20 Ordered 200 mg PO Q4H PRN L.acidoph,Paracasei, B.lactis [Probiotic] Med 11/15/20 09:00 Ordered 2 cap PO DAILY LORazepam [LORazepam] Med 11/14/20 12:20 Ordered 1 mg PO TID PRN Potassium Chloride [Klor-Con M20] Med 11/15/20 09:00 Ordered 40 meq PO DAILY Prochlorperazine [Compazine] Med 11/14/20 12:20 Ordered 10 mg PO Q6H PRN Rosuvastatin [Crestor] Med 11/14/20 21:00 Ordered 10 mg PO BEDTIME Sertraline [Zoloft] Med 11/15/20 09:00 Ordered 50 mg PO DAILY Tacrolimus [Protopic] Med 11/14/20 21:00 Ordered 1 applic TOP BID Zinc Gluconate [Zinc] Med 11/15/20 09:00 Ordered 50 mg PO DAILY bisacodyL [Dulcolax] Med 11/14/20 12:20 Ordered 10 mg PO DAILY PRN oxyCODONE Med 11/14/20 12:20 Ordered 10 mg PO Q6H PRN rOPINIRole [Requip] Med 11/14/20 21:00 Ordered 2 mg PO BID tiZANidine [Zanaflex] Med 11/14/20 12:20 Ordered 4 mg PO Q8H PRN traMADol [Ultram] Med 11/14/20 21:00 Ordered 100 mg PO BID Resuscitation Status Routine Resus Stat 11/14/20 12:15 Ordered Medication Orders Acetaminophen (Acetaminophen 500 Mg Tab) 500 mg PO DAILY PRN PRN Reason: Pain Albuterol (Albuterol 8 Gm Inhaler) 0 gm INH Q4H PRN PRN Reason: Shortness of Breath Albuterol/Ipratropium (Albuterol/Ipratropium 3.0-0.5 Mg/3 Ml Neb Soln) 3 ml INH Q4H PRN PRN Reason: Shortness of Breath Aspirin (Aspirin 81 Mg Tab.Ec) 81 mg PO DAILY NGUYỄN Bisacodyl (Bisacodyl 5 Mg Tab) 10 mg PO DAILY PRN PRN Reason: Constipation Cyclobenzaprine HCl (Cyclobenzaprine 10 Mg Tab) 10 mg PO TID PRN PRN Reason: muscle spasms Diclofenac Sodium (Diclofenac Sodium 1% Gel 100 Gm Tube) gm TOP BID PRN PRN Reason: Pain Docusate Sodium (Docusate Sodium 100 Mg Cap) 100 mg PO Q48H NGUYỄN Fluticasone Propionate (Fluticasone Propionate Nasal [place] 16 Gm Bottle) gm NASBOTH BID NGUYỄN Furosemide (Furosemide 20 Mg Tab) 20 mg PO BID NGUYỄN Hydroxychloroquine Sulfate (Hydroxychloroquine 200 Mg Tab) 200 mg PO Q2D NGUYỄN Hydroxychloroquine Sulfate (Hydroxychloroquine 200 Mg Tab) 400 mg PO Q2D NGUYỄN Ibuprofen (Ibuprofen 200 Mg Tab) 200 mg PO Q4H PRN PRN Reason: Pain Non-Formulary Medication (Clobetasol Propionate [Clobetasol Propionate]) 1 applic TOP DAILY PRN PRN Reason: Other Non-Formulary Medication (Fluocinonide [Lidex 0.05% Top Soln]) 1 applic TOP DAILY NGUYỄN Non-Formulary Medication (L.Acidoph,Paracasei, B.Lactis [Probiotic]) 2 cap PO DAILY NGUYỄN Non-Formulary Medication (Lorazepam [Lorazepam]) 1 mg PO TID PRN PRN Reason: Anxiety Non-Formulary Medication (Prochlorperazine [Compazine]) 10 mg PO Q6H PRN PRN Reason: Vomiting Non-Formulary Medication (Tacrolimus [Protopic]) 1 applic TOP BID NGUYỄN Oxycodone HCl (Oxycodone 5 Mg Tab) 10 mg PO Q6H PRN PRN Reason: Pain Potassium Chloride (Potassium Chloride 20 Meq Tab.Er) 40 meq PO DAILY NGUYỄN Ropinirole HCl (Ropinirole 1 Mg Tab) 2 mg PO BID [facility] Rosuvastatin Calcium (Rosuvastatin 10 Mg Tab) 10 mg PO BEDTIME NGUYỄN Sertraline HCl (Sertraline 50 Mg Tab) 50 mg PO DAILY NGUYỄN Tizanidine HCl (Tizanidine 4 Mg Tab) 4 mg PO Q8H PRN PRN Reason: Muscle Spasm - Painful Tramadol HCl (Tramadol 50 Mg Tab) 100 mg PO BID NGUYỄN Zinc Gluconate (Zinc (Zinc Gluconate) 50 Mg Tab) 50 mg PO DAILY [facility] Assessment/Plan Comment:: Acute Hospital Problems: Open scalp wound with bone exposed - Wound Vac - Follow-up with plastic surgery, they are monitoring the pathology or the biopsy 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 diff antibiotic associated diarrhea - Probiotic 2 tabs PO daily Secondary Diagnoses: COPD with hx of MSSA PNA 2017 - Albuterol inhaler 2 puffs q 4 hours PRN - Duonebs 3 mL q 4 hours PRN Peripheral Vascular Disease Tobacco dependence - Avoid nicotine replacement therapies due to risk of vasoconstriction Anxiety - Lorazepam 1 mg PO TID PRN Depression - Sertraline 50 mg PO daily Hyperlipidemia - Rosuvastatin 10 mg PO qhs Chronic low back pain - Oxycodone 10 mg PO q 6 hours PRN - Ibuprofen 200 mg PO q 4 hours PRN Muscle Spasm - Cyclobenzaprine 10 mg PO daily PRN RLS - Pramipexole 1 mg PO TID Peripheral edema - Furosemide 20 mg PO daily - KCl 40 mEq PO daily Rhinitis - Fluticasone 1 spray in each nostril BID CODE STATUS: Full Code Diet: Regular Activity: Up with assistance - Mortality Measure Prognosis:: Good
[2020-11-14] MEDS ORDERED: hydrOXYzine HCl 25 MG Tab PO PRN (14:24)
[2020-11-14] MEDS: Pramipexole 0.5 MG Tab PO SCH ×2 (15:20→20:11)
[2020-11-14] MEDS: oxyCODONE 5 MG Tab PO PRN (15:21)
[2020-11-14] MEDS: Omeprazole 20 MG Cap.CR PO SCH (18:16)
[2020-11-14] MEDS: Sodium Chloride 0.9% 250 ML IV SCH (18:39)
[2020-11-14] MEDS: Acetaminophen 500 MG Tab PO PRN (20:10)
[2020-11-14] MEDS: Nystatin Topical Powder 15 GM Bottle TOP SCH (20:12)
[2020-11-14] MEDS: Rosuvastatin 10 MG Tab PO SCH (20:13)
[2020-11-14] MEDS ORDERED: rOPINIRole 1 MG Tab PO SCH (21:00)
[2020-11-14] MEDS ORDERED: TACROLIMUS TOP SCH (21:00)
[2020-11-14] MEDS ORDERED: Fluticasone Propionate Nasal Spray 16 GM Bottle NASBOTH SCH (21:00)
[2020-11-14] MEDS ORDERED: traMADol 50 MG Tab PO SCH (21:00)
[2020-11-15] MEDS: Omeprazole 20 MG Cap.CR PO SCH ×2 (07:34→17:34)
[2020-11-15] MEDS: Lactobacillus Rhamnosus GG (Probiotic) Cap PO SCH (08:32)
[2020-11-15] MEDS: Furosemide 20 MG Tab PO SCH (08:33)
[2020-11-15] MEDS: Pramipexole 0.5 MG Tab PO SCH ×3 (08:33→20:16)
[2020-11-15] MEDS: Cholecalciferol (Vitamin D3) 25 MCG Tab PO SCH (08:33)
[2020-11-15] MEDS: Sertraline 50 MG Tab PO SCH (08:33)
[2020-11-15] MEDS: Potassium Chloride 20 MEQ Tab.ER PO SCH (08:33)
[2020-11-15] MEDS: Nystatin Topical Powder 15 GM Bottle TOP SCH ×2 (08:35→20:19)
[2020-11-15] MEDS ORDERED: Aspirin 81 MG Tab.EC PO SCH (09:00)
[2020-11-15] MEDS ORDERED: Zinc (Zinc Gluconate) 50 MG Tab PO SCH (09:00)
[2020-11-15] MEDS ORDERED: FLUOCINONIDE TOP SCH (09:00)
[2020-11-15] MEDS: Acetaminophen 500 MG Tab PO PRN (09:19)
[2020-11-15] MEDS: Cyclobenzaprine 10 MG Tab PO PRN (15:55)
[2020-11-15] MEDS: Rosuvastatin 10 MG Tab PO SCH (20:17)
[2020-11-16] MEDS: oxyCODONE 5 MG Tab PO PRN ×2 (02:02→12:55)
[2020-11-16] MEDS: Omeprazole 20 MG Cap.CR PO SCH ×3 (06:16→17:44)
[2020-11-16] MEDS: Lactobacillus Rhamnosus GG (Probiotic) Cap PO SCH (08:09)
[2020-11-16] MEDS: Cholecalciferol (Vitamin D3) 25 MCG Tab PO SCH (08:09)
[2020-11-16] MEDS: Furosemide 20 MG Tab PO SCH (08:09)
[2020-11-16] MEDS: Potassium Chloride 20 MEQ Tab.ER PO SCH (08:09)
[2020-11-16] MEDS: Pramipexole 0.5 MG Tab PO SCH ×3 (08:09→20:55)
[2020-11-16] MEDS: Sertraline 50 MG Tab PO SCH (08:10)
[2020-11-16] MEDS: Nystatin Topical Powder 15 GM Bottle TOP SCH ×2 (09:41→20:55)
[2020-11-16] MEDS: Sodium Chloride 0.9% 250 ML IV SCH (17:45)
[2020-11-16] MEDS: Rosuvastatin 10 MG Tab PO SCH (20:55)
[2020-11-17] MEDS: Omeprazole 20 MG Cap.CR PO SCH ×3 (05:52→17:04)
[2020-11-17] MEDS: Pramipexole 0.5 MG Tab PO SCH ×3 (08:10→21:39)
[2020-11-17] MEDS: Sertraline 50 MG Tab PO SCH (08:11)
[2020-11-17] MEDS: Lactobacillus Rhamnosus GG (Probiotic) Cap PO SCH (08:11)
[2020-11-17] MEDS: Potassium Chloride 20 MEQ Tab.ER PO SCH (08:11)
[2020-11-17] MEDS: Cholecalciferol (Vitamin D3) 25 MCG Tab PO SCH (08:11)
[2020-11-17] MEDS: Furosemide 20 MG Tab PO SCH (08:11)
[2020-11-17] MEDS: Nystatin Topical Powder 15 GM Bottle TOP SCH ×2 (08:15→21:55)
[2020-11-17] MEDS: Cyclobenzaprine 10 MG Tab PO PRN (09:37)
[2020-11-17] MEDS: oxyCODONE 5 MG Tab PO PRN (11:15)
[2020-11-17] MEDS: LORazepam 0.5 MG Tab PO PRN (11:21)
[2020-11-17] MEDS: Sodium Chloride 0.9% 250 ML IV SCH (17:10)
[2020-11-17] MEDS: Rosuvastatin 10 MG Tab PO SCH (21:39)
[2020-11-17] MEDS: Acetaminophen 500 MG Tab PO PRN (21:55)
[2020-11-18] MEDS: oxyCODONE 5 MG Tab PO PRN ×2 (03:40→14:42)
[2020-11-18] MEDS: Omeprazole 20 MG Cap.CR PO SCH ×3 (06:05→17:42)
[2020-11-18] MEDS: Lactobacillus Rhamnosus GG (Probiotic) Cap PO SCH (08:42)
[2020-11-18] MEDS: Pramipexole 0.5 MG Tab PO SCH ×3 (08:42→20:55)
[2020-11-18] MEDS: Furosemide 20 MG Tab PO SCH (08:42)
[2020-11-18] MEDS: Cholecalciferol (Vitamin D3) 25 MCG Tab PO SCH (08:42)
[2020-11-18] MEDS: Sertraline 50 MG Tab PO SCH (08:42)
[2020-11-18] MEDS: Potassium Chloride 20 MEQ Tab.ER PO SCH (08:42)
[2020-11-18] MEDS: Nystatin Topical Powder 15 GM Bottle TOP SCH ×2 (09:01→20:55)
[2020-11-18] MEDS: LORazepam 0.5 MG Tab PO PRN (09:14)
--- NOTE | 2020-11-18 09:27 | PCM.PN ---
- General Info Date of Service: 11/18/20 Admission Dx/Problem (Free Text): Admission Diagnosis/Problem Admission Diagnosis/Problem Wound - Review of Systems Systems Review Comment:: Nguyen is seen today on swingbed rounds. She states things have been going well for her. She feels her pain is adequately controlled. She states PT has been going well. As we are approaching a holiday weekend she is ready to do exercises on her own in her room and has therapy bands for added resistance. She notes she is trending towards a little constipation and is requesting a daily colace. - Patient Data Vitals - Most Recent: Last Vital Signs Temp 96.8 F L 11/18/20 06:14 Pulse 92 11/18/20 06:14 Resp 18 11/18/20 06:14 BP 128/88 11/18/20 06:14 Pulse Ox 96 11/18/20 06:14 Weight - Most Recent: 127 lb 4.8 oz I&O - Last 24 Hours: Intake & Output 11/17/20 11/18/20 11/18/20 22:59 06:59 14:59 Intake Total 200 400 Balance 200 400 Lab Results Last 24 Hours: Laboratory Results - last 24 hr 11/17/20 Range/Units 18:15 Vancomycin Trough 23.2 (18.0-26.0) ug/mL Med Orders - Current: Current Medications Acetaminophen (Acetaminophen 500 Mg Tab) 500 mg PO Q4H PRN PRN Reason: MODERATE PAIN Last Admin: 11/17/20 21:55 Dose: 500 mg Documented by: Albuterol (Albuterol 8 Gm Inhaler) 0 gm INH Q4H PRN PRN Reason: Shortness of Breath Albuterol/Ipratropium (Albuterol/Ipratropium 3.0-0.5 Mg/3 Ml Neb Soln) 3 ml INH Q4H PRN PRN Reason: Shortness of Breath Cholecalciferol (Cholecalciferol (Vitamin D3) 25 Mcg Tab) 25 mcg PO DAILY [facility] Last Admin: 11/18/20 08:42 Dose: 25 mcg Documented by: Cyclobenzaprine HCl (Cyclobenzaprine 10 Mg Tab) 10 mg PO DAILY PRN PRN Reason: muscle spasms Last Admin: 11/17/20 09:37 Dose: 10 mg Documented by: Furosemide (Furosemide 20 Mg Tab) 20 mg PO DAILY [facility] Last Admin: 11/18/20 08:42 Dose: 20 mg Documented by: Heparin Sodium (Porcine) (Heparin Sodium 100 Units/Ml 5 Ml Syringe) 300 units FLUSH 1100,2300 [facility] Last Admin: 11/17/20 23:45 Dose: 300 units Documented by: Hydroxyzine HCl (Hydroxyzine Hcl 25 Mg Tab) 25 mg PO Q6H PRN PRN Reason: ITCHING Sodium Chloride (Normal Saline) 250 mls @ 100 mls/hr IV ASDIRECTED [facility] Last Admin: 11/17/20 17:10 Dose: 100 mls/hr Documented by: Vancomycin HCl 0.75 gm/ Sodium (Chloride) 250 mls @ 166.667 mls/hr IV Q12H [facility] Last Admin: 11/17/20 21:39 Dose: 166.667 mls/hr Documented by: Lactobacillus Rhamnosus (Lactobacillus Rhamnosus Gg (Probiotic) Cap) 2 cap PO DAILY [facility] Last Admin: 11/18/20 08:42 Dose: 2 cap Documented by: Lorazepam (Lorazepam 0.5 Mg Tab) 1 mg PO TID PRN PRN Reason: Anxiety Last Admin: 11/18/20 09:14 Dose: 1 mg Documented by: Nystatin (Nystatin Topical Powder 15 Gm Bottle) 0 gm TOP BID [facility] Last Admin: 11/18/20 09:01 Dose: 1 applic Documented by: Omeprazole (Omeprazole 20 Mg Cap.Cr) 20 mg PO BIDAC [facility] Last Admin: 11/18/20 06:32 Dose: Not Given Documented by: Oxycodone HCl (Oxycodone 5 Mg Tab) 10 mg PO Q6H PRN PRN Reason: MODERATE OR SEVERE PAIN Last Admin: 11/18/20 03:40 Dose: 10 mg Documented by: Potassium Chloride (Potassium Chloride 20 Meq Tab.Er) 40 meq PO DAILY [facility] Last Admin: 11/18/20 08:42 Dose: 40 meq Documented by: Pramipexole Dihydrochloride (Pramipexole 0.5 Mg Tab) 1 mg PO TID [facility] Last Admin: 11/18/20 08:42 Dose: 1 mg Documented by: Prochlorperazine Maleate (Prochlorperazine 5 Mg Tab) 10 mg PO Q6H PRN PRN Reason: Vomiting Rosuvastatin Calcium (Rosuvastatin 10 Mg Tab) 10 mg PO BEDTIME [facility] Last Admin: 11/17/20 21:39 Dose: 10 mg Documented by: Sertraline HCl (Sertraline 50 Mg Tab) 50 mg PO DAILY [facility] Last Admin: 11/18/20 08:42 Dose: 50 mg Documented by: Vancomycin HCl (Pharmacy To Dose - Vancomycin) 1 dose .XX BID [facility] Stop: 12/20/20 21:01 Discontinued Medications Acetaminophen (Acetaminophen 500 Mg Tab) 500 mg PO DAILY PRN PRN Reason: Pain Cyclobenzaprine HCl (Cyclobenzaprine 10 Mg Tab) 10 mg PO TID PRN PRN Reason: muscle spasms Heparin Sodium (Porcine) (Heparin Sodium 100 Units/Ml 5 Ml Syringe) 300 units FLUSH 0800,1999 [facility] Last Admin: 11/17/20 08:20 Dose: 300 units Documented by: Vancomycin HCl 1 gm/ Sodium (Chloride) 250 mls @ 166.667 mls/hr IV Q12H [facility] Last Admin: 11/17/20 19:38 Dose: Not Given Documented by: - Exam General: Alert, Oriented, Cooperative, No Acute Distress, Other (Cranial wound vac place.) Lungs: Clear to Auscultation, Normal Respiratory Effort, Decreased Breath Sounds Cardiovascular: Regular Rate, Regular Rhythm, No Murmurs GI/Abdominal Exam: Normal Bowel Sounds Extremities: No Pedal Edema - Patient Data Lab Results Last 24 hrs: Laboratory Results - last 24 hr 11/17/20 Range/Units 18:15 Vancomycin Trough 23.2 (18.0-26.0) ug/mL Sepsis Event Note - Evaluation Sepsis Screening Result: No Definite Risk - Focused Exam Vital Signs: Vital Signs Temp Pulse Resp BP Pulse Ox 11/18/20 06:14 96.8 F L 92 18 128/88 96 - Problem List Review Problem List Initiated/Reviewed/Updated: Yes - My Orders Last 24 Hours: My Active Orders 11/17/20 22:00 Vancomycin 0.75 gm Sodium Chloride 0.9% [Normal Saline] 250 ml IV Q12H 11/17/20 23:00 Heparin Sodium [Heparin Lock Flush 100 Units/ML] 300 units FLUSH 1100,2300 11/21/20 06:00 VANCOMYCIN TROUGH [CHEM] Routine 11/28/20 05:30 CBC WITH AUTO DIFF [HEME] Routine 11/28/20 06:00 VANCOMYCIN TROUGH [CHEM] Routine - Plan Plan:: Acute Hospital Problems: Open scalp wound with bone exposed - Wound Vac - Follow-up with plastic surgery, they are monitoring the pathology or the biopsy 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 diff antibiotic associated diarrhea - Probiotic 2 tabs PO daily Constipation (11/18/2020) - Colace 100 mg PO daily AM, hold for loose stool Secondary Diagnoses: COPD with hx of MSSA PNA 2016 - Albuterol inhaler 2 puffs q 4 hours PRN - Duonebs 3 mL q 4 hours PRN Peripheral Vascular Disease Tobacco dependence - Avoid nicotine replacement therapies due to risk of vasoconstriction Anxiety - Lorazepam 1 mg PO TID PRN Depression - Sertraline 50 mg PO daily Hyperlipidemia - Rosuvastatin 10 mg PO qhs Chronic low back pain - Oxycodone 10 mg PO q 6 hours PRN - Ibuprofen 200 mg PO q 4 hours PRN Muscle Spasm - Cyclobenzaprine 10 mg PO daily PRN RLS - Pramipexole 1 mg PO TID Peripheral edema - Furosemide 20 mg PO daily - KCl 40 mEq PO daily Rhinitis - Fluticasone 1 spray in each nostril BID CODE STATUS: Full Code Diet: Regular Activity: Up with assistance
[2020-11-18] MEDS: Docusate Sodium 100 MG Cap PO SCH (13:03)
[2020-11-18] MEDS: Rosuvastatin 10 MG Tab PO SCH (20:55)
[2020-11-19] MEDS: oxyCODONE 5 MG Tab PO PRN ×3 (03:54→21:36)
[2020-11-19] MEDS: Omeprazole 20 MG Cap.CR PO SCH ×2 (07:59→17:43)
[2020-11-19] MEDS: Docusate Sodium 100 MG Cap PO SCH (09:21)
[2020-11-19] MEDS: Sertraline 50 MG Tab PO SCH (09:22)
[2020-11-19] MEDS: Cholecalciferol (Vitamin D3) 25 MCG Tab PO SCH (09:22)
[2020-11-19] MEDS: Lactobacillus Rhamnosus GG (Probiotic) Cap PO SCH (09:22)
[2020-11-19] MEDS: Pramipexole 0.5 MG Tab PO SCH ×3 (09:22→20:43)
[2020-11-19] MEDS: Potassium Chloride 20 MEQ Tab.ER PO SCH (09:23)
[2020-11-19] MEDS: Furosemide 20 MG Tab PO SCH (09:23)
[2020-11-19] MEDS: Nystatin Topical Powder 15 GM Bottle TOP SCH ×2 (09:29→20:43)
[2020-11-19] MEDS: Rosuvastatin 10 MG Tab PO SCH (20:43)
[2020-11-19] MEDS: LORazepam 0.5 MG Tab PO PRN (20:43)
[2020-11-20] MEDS: Omeprazole 20 MG Cap.CR PO SCH ×2 (06:46→18:49)
[2020-11-20] MEDS: Docusate Sodium 100 MG Cap PO SCH (08:30)
[2020-11-20] MEDS: Lactobacillus Rhamnosus GG (Probiotic) Cap PO SCH (08:30)
[2020-11-20] MEDS: Potassium Chloride 20 MEQ Tab.ER PO SCH (08:30)
[2020-11-20] MEDS: Cholecalciferol (Vitamin D3) 25 MCG Tab PO SCH (08:31)
[2020-11-20] MEDS: Sertraline 50 MG Tab PO SCH (08:31)
[2020-11-20] MEDS: Furosemide 20 MG Tab PO SCH (08:31)
[2020-11-20] MEDS: Pramipexole 0.5 MG Tab PO SCH ×3 (08:31→20:29)
[2020-11-20] MEDS: Acetaminophen 500 MG Tab PO PRN (10:04)
[2020-11-20] MEDS: Nystatin Topical Powder 15 GM Bottle TOP SCH ×2 (10:07→20:29)
[2020-11-20] MEDS: oxyCODONE 5 MG Tab PO PRN (18:14)
[2020-11-20] MEDS: Prochlorperazine 5 MG Tab PO PRN (18:14)
[2020-11-20] MEDS: Rosuvastatin 10 MG Tab PO SCH (20:29)
[2020-11-21] MEDS: oxyCODONE 5 MG Tab PO PRN ×3 (01:25→20:50)
[2020-11-21] MEDS: LORazepam 0.5 MG Tab PO PRN ×3 (01:25→20:50)
[2020-11-21] MEDS: Omeprazole 20 MG Cap.CR PO SCH ×3 (06:00→17:08)
[2020-11-21] MEDS: Potassium Chloride 20 MEQ Tab.ER PO SCH (08:09)
[2020-11-21] MEDS: Pramipexole 0.5 MG Tab PO SCH ×3 (08:09→20:50)
[2020-11-21] MEDS: Sertraline 50 MG Tab PO SCH (08:09)
[2020-11-21] MEDS: Lactobacillus Rhamnosus GG (Probiotic) Cap PO SCH (08:09)
[2020-11-21] MEDS: Furosemide 20 MG Tab PO SCH (08:09)
[2020-11-21] MEDS: Cholecalciferol (Vitamin D3) 25 MCG Tab PO SCH (08:09)
[2020-11-21] MEDS: Docusate Sodium 100 MG Cap PO SCH (08:09)
[2020-11-21] MEDS: Nystatin Topical Powder 15 GM Bottle TOP SCH ×2 (08:10→20:51)
[2020-11-21] MEDS: Rosuvastatin 10 MG Tab PO SCH (20:50)
[2020-11-22] MEDS: Omeprazole 20 MG Cap.CR PO SCH ×3 (06:25→17:33)
[2020-11-22] MEDS: Lactobacillus Rhamnosus GG (Probiotic) Cap PO SCH (08:14)
[2020-11-22] MEDS: Potassium Chloride 20 MEQ Tab.ER PO SCH (08:15)
[2020-11-22] MEDS: Pramipexole 0.5 MG Tab PO SCH ×3 (08:15→20:28)
[2020-11-22] MEDS: Sertraline 50 MG Tab PO SCH (08:16)
[2020-11-22] MEDS: Cholecalciferol (Vitamin D3) 25 MCG Tab PO SCH (08:16)
[2020-11-22] MEDS: Docusate Sodium 100 MG Cap PO SCH (08:17)
[2020-11-22] MEDS: Nystatin Topical Powder 15 GM Bottle TOP SCH ×2 (08:17→20:28)
[2020-11-22] MEDS: Furosemide 20 MG Tab PO SCH (08:17)
[2020-11-22] MEDS: LORazepam 0.5 MG Tab PO PRN (09:10)
[2020-11-22] MEDS: oxyCODONE 5 MG Tab PO PRN (09:11)
[2020-11-22] MEDS: Acetaminophen 500 MG Tab PO PRN (17:39)
[2020-11-22] MEDS: Rosuvastatin 10 MG Tab PO SCH (20:28)
[2020-11-23] MEDS: oxyCODONE 5 MG Tab PO PRN ×3 (00:22→20:46)
[2020-11-23] MEDS: Omeprazole 20 MG Cap.CR PO SCH ×2 (06:29→17:21)
[2020-11-23] MEDS: Prochlorperazine 5 MG Tab PO PRN (08:22)
[2020-11-23] MEDS: Lactobacillus Rhamnosus GG (Probiotic) Cap PO SCH (08:22)
[2020-11-23] MEDS: Pramipexole 0.5 MG Tab PO SCH ×3 (08:22→20:45)
[2020-11-23] MEDS: Docusate Sodium 100 MG Cap PO SCH (08:23)
[2020-11-23] MEDS: Cholecalciferol (Vitamin D3) 25 MCG Tab PO SCH (08:23)
[2020-11-23] MEDS: Potassium Chloride 20 MEQ Tab.ER PO SCH (08:23)
[2020-11-23] MEDS: Furosemide 20 MG Tab PO SCH (08:23)
[2020-11-23] MEDS: Sertraline 50 MG Tab PO SCH (08:23)
[2020-11-23] MEDS: Nystatin Topical Powder 15 GM Bottle TOP SCH ×2 (08:25→20:47)
[2020-11-23] MEDS: LORazepam 0.5 MG Tab PO PRN (13:10)
[2020-11-23] MEDS: Rosuvastatin 10 MG Tab PO SCH (20:46)
[2020-11-23] MEDS: Cyclobenzaprine 10 MG Tab PO PRN (20:46)
[2020-11-24] MEDS: Omeprazole 20 MG Cap.CR PO SCH ×3 (05:56→18:06)
[2020-11-24] MEDS: Lactobacillus Rhamnosus GG (Probiotic) Cap PO SCH (08:26)
[2020-11-24] MEDS: Potassium Chloride 20 MEQ Tab.ER PO SCH (08:26)
[2020-11-24] MEDS: Pramipexole 0.5 MG Tab PO SCH ×3 (08:26→20:10)
[2020-11-24] MEDS: Cholecalciferol (Vitamin D3) 25 MCG Tab PO SCH (08:26)
[2020-11-24] MEDS: Furosemide 20 MG Tab PO SCH (08:27)
[2020-11-24] MEDS: Docusate Sodium 100 MG Cap PO SCH (08:27)
[2020-11-24] MEDS: Sertraline 50 MG Tab PO SCH (08:27)
[2020-11-24] MEDS: Nystatin Topical Powder 15 GM Bottle TOP SCH ×2 (09:15→20:14)
[2020-11-24] MEDS: LORazepam 0.5 MG Tab PO PRN ×2 (09:45→21:30)
[2020-11-24] MEDS: oxyCODONE 5 MG Tab PO PRN ×2 (09:47→21:30)
[2020-11-24] MEDS: Rosuvastatin 10 MG Tab PO SCH (20:10)
[2020-11-25] MEDS: Omeprazole 20 MG Cap.CR PO SCH ×3 (06:15→17:27)
[2020-11-25] MEDS: Potassium Chloride 20 MEQ Tab.ER PO SCH (08:12)
[2020-11-25] MEDS: Lactobacillus Rhamnosus GG (Probiotic) Cap PO SCH (08:12)
[2020-11-25] MEDS: Pramipexole 0.5 MG Tab PO SCH ×3 (08:12→20:05)
[2020-11-25] MEDS: Sertraline 50 MG Tab PO SCH (08:13)
[2020-11-25] MEDS: Cholecalciferol (Vitamin D3) 25 MCG Tab PO SCH (08:13)
[2020-11-25] MEDS: Docusate Sodium 100 MG Cap PO SCH (08:13)
[2020-11-25] MEDS: Furosemide 20 MG Tab PO SCH (08:13)
[2020-11-25] MEDS: oxyCODONE 5 MG Tab PO PRN ×2 (09:56→20:09)
--- NOTE | 2020-11-25 09:57 | PCM.PN ---
- General Info Date of Service: 11/25/20 Admission Dx/Problem (Free Text): Admission Diagnosis/Problem Admission Diagnosis/Problem Wound - Review of Systems Systems Review Comment:: Nguyen is seen today on swingbed rounds. She states PT has been going well. She notes her constipation is alleviated by eating 2 prunes each day. She has some left hip pain but it is better when she is up and walking around. Pain is controlled with her home regimen. - Patient Data Vitals - Most Recent: Last Vital Signs Temp 98.6 F 11/25/20 06:17 Pulse 101 H 11/25/20 06:17 Resp 18 11/25/20 06:17 BP 132/87 11/25/20 06:17 Pulse Ox 99 11/25/20 06:17 Weight - Most Recent: 117 lb 3.2 oz I&O - Last 24 Hours: Intake & Output 11/24/20 11/25/20 11/25/20 22:59 06:59 14:59 Intake Total 465 350 Output Total 2 Balance 463 350 Med Orders - Current: Current Medications Acetaminophen (Acetaminophen 500 Mg Tab) 500 mg PO Q4H PRN PRN Reason: MODERATE PAIN Last Admin: 11/22/20 17:39 Dose: 500 mg Documented by: Albuterol (Albuterol 8 Gm Inhaler) 0 gm INH Q4H PRN PRN Reason: Shortness of Breath Albuterol/Ipratropium (Albuterol/Ipratropium 3.0-0.5 Mg/3 Ml Neb Soln) 3 ml INH Q4H PRN PRN Reason: Shortness of Breath Cholecalciferol (Cholecalciferol (Vitamin D3) 25 Mcg Tab) 25 mcg PO DAILY [facility] Last Admin: 11/25/20 08:13 Dose: 25 mcg Documented by: Cyclobenzaprine HCl (Cyclobenzaprine 10 Mg Tab) 10 mg PO DAILY PRN PRN Reason: muscle spasms Last Admin: 11/23/20 20:46 Dose: 10 mg Documented by: Docusate Sodium (Docusate Sodium 100 Mg Cap) 100 mg PO DAILY [facility] Last Admin: 11/25/20 08:13 Dose: 100 mg Documented by: Furosemide (Furosemide 20 Mg Tab) 20 mg PO DAILY [facility] Last Admin: 11/25/20 08:13 Dose: 20 mg Documented by: Heparin Sodium (Porcine) (Heparin Sodium 100 Units/Ml 5 Ml Syringe) 300 units FLUSH 0830 [facility] Last Admin: 11/24/20 13:22 Dose: 300 units Documented by: Hydroxyzine HCl (Hydroxyzine Hcl 25 Mg Tab) 25 mg PO Q6H PRN PRN Reason: ITCHING Last Admin: 11/23/20 23:28 Dose: 25 mg Documented by: Sodium Chloride (Normal Saline) 250 mls @ 100 mls/hr IV ASDIRECTED [facility] Last Admin: 11/17/20 17:10 Dose: 100 mls/hr Documented by: Vancomycin HCl 1.25 gm/ Sodium (Chloride) 250 mls @ 166.667 mls/hr IV Q24H [facility] Last Admin: 11/25/20 08:05 Dose: 166.667 mls/hr Documented by: Lactobacillus Rhamnosus (Lactobacillus Rhamnosus Gg (Probiotic) Cap) 2 cap PO DAILY [facility] Last Admin: 11/25/20 08:12 Dose: 2 cap Documented by: Lorazepam (Lorazepam 0.5 Mg Tab) 1 mg PO TID PRN PRN Reason: Anxiety Last Admin: 11/24/20 21:30 Dose: 1 mg Documented by: Nystatin (Nystatin Topical Powder 15 Gm Bottle) 0 gm TOP BID [facility] Last Admin: 11/24/20 20:14 Dose: 1 applic Documented by: Omeprazole (Omeprazole 20 Mg Cap.Cr) 20 mg PO BIDAC [facility] Last Admin: 11/25/20 06:33 Dose: Not Given Documented by: Oxycodone HCl (Oxycodone 5 Mg Tab) 10 mg PO Q6H PRN PRN Reason: MODERATE OR SEVERE PAIN Last Admin: 11/24/20 21:30 Dose: 10 mg Documented by: Potassium Chloride (Potassium Chloride 20 Meq Tab.Er) 40 meq PO DAILY [facility] Last Admin: 11/25/20 08:12 Dose: 40 meq Documented by: Pramipexole Dihydrochloride (Pramipexole 0.5 Mg Tab) 1 mg PO TID [facility] Last Admin: 11/25/20 08:12 Dose: 1 mg Documented by: Prochlorperazine Maleate (Prochlorperazine 5 Mg Tab) 10 mg PO Q6H PRN PRN Reason: Vomiting Last Admin: 11/23/20 08:22 Dose: 10 mg Documented by: Rosuvastatin Calcium (Rosuvastatin 10 Mg Tab) 10 mg PO BEDTIME [facility] Last Admin: 11/24/20 20:10 Dose: 10 mg Documented by: Sertraline HCl (Sertraline 50 Mg Tab) 50 mg PO DAILY [facility] Last Admin: 11/25/20 08:13 Dose: 50 mg Documented by: Vancomycin HCl (Pharmacy To Dose - Vancomycin) 1 dose .XX BID [facility] Stop: 12/20/20 21:01 Discontinued Medications Acetaminophen (Acetaminophen 500 Mg Tab) 500 mg PO DAILY PRN PRN Reason: Pain Cyclobenzaprine HCl (Cyclobenzaprine 10 Mg Tab) 10 mg PO TID PRN PRN Reason: muscle spasms Heparin Sodium (Porcine) (Heparin Sodium 100 Units/Ml 5 Ml Syringe) 300 units FLUSH 0800,2000 [facility] Last Admin: 11/17/20 08:20 Dose: 300 units Documented by: Heparin Sodium (Porcine) (Heparin Sodium 100 Units/Ml 5 Ml Syringe) 300 units FLUSH 1100,2300 [facility] Last Admin: 11/20/20 11:00 Dose: Not Given Documented by: Vancomycin HCl 1 gm/ Sodium (Chloride) 250 mls @ 166.667 mls/hr IV Q12H [facility] Last Admin: 11/17/20 19:38 Dose: Not Given Documented by: Vancomycin HCl 0.75 gm/ Sodium (Chloride) 250 mls @ 166.667 mls/hr IV Q12H [facility] Last Admin: 11/19/20 13:59 Dose: Not Given Documented by: Vancomycin HCl 1 gm/ Sodium (Chloride) 250 mls @ 166.667 mls/hr IV Q24H [facility] Last Admin: 11/22/20 18:20 Dose: Not Given Documented by: - Exam General: Alert, Oriented, Cooperative, No Acute Distress Lungs: Clear to Auscultation, Normal Respiratory Effort Cardiovascular: Regular Rate, Regular Rhythm, No Murmurs GI/Abdominal Exam: Normal Bowel Sounds Wound/Incisions: Other (Wound vac in place.) - Patient Data Result Diagrams: 11/21/20 06:05 11/22/20 06:30 Sepsis Event Note - Evaluation Sepsis Screening Result: No Definite Risk - Focused Exam Vital Signs: Vital Signs Temp Pulse Resp BP Pulse Ox 11/25/20 06:17 98.6 F 101 H 18 132/87 99 - Problem List Review Problem List Initiated/Reviewed/Updated: Yes - My Orders Last 24 Hours: My Active Orders 11/27/20 07:30 VANCOMYCIN TROUGH [CHEM] Routine 11/28/20 05:30 CBC WITH AUTO DIFF [HEME] Routine 11/28/20 10:45 CREATININE W/GFR [CHEM] WEEKLY 12/05/20 10:45 CREATININE W/GFR [CHEM] WEEKLY 12/12/20 10:45 CREATININE W/GFR [CHEM] WEEKLY 12/19/20 10:45 CREATININE W/GFR [CHEM] WEEKLY - Plan Plan:: Acute Hospital Problems: Open scalp wound with bone exposed - Wound Vac - Follow-up with plastic surgery, they are monitoring the pathology or the biopsy 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 diff antibiotic associated diarrhea - Probiotic 2 tabs PO daily Constipation (11/18/2020) - Colace 100 mg PO daily AM, hold for loose stool - Prunes daily per patient request Secondary Diagnoses: COPD with hx of MSSA PNA 2016 - Albuterol inhaler 2 puffs q 4 hours PRN - Duonebs 3 mL q 4 hours PRN Peripheral Vascular Disease Tobacco dependence - Avoid nicotine replacement therapies due to risk of vasoconstriction Anxiety - Lorazepam 1 mg PO TID PRN Depression - Sertraline 50 mg PO daily Hyperlipidemia - Rosuvastatin 10 mg PO qhs Chronic low back pain - Oxycodone 10 mg PO q 6 hours PRN - Ibuprofen 200 mg PO q 4 hours PRN Muscle Spasm - Cyclobenzaprine 10 mg PO daily PRN RLS - Pramipexole 1 mg PO TID Peripheral edema - Furosemide 20 mg PO daily - KCl 40 mEq PO daily Rhinitis - Fluticasone 1 spray in each nostril BID CODE STATUS: Full Code Diet: Regular Activity: Up with assistance
[2020-11-25] MEDS: LORazepam 0.5 MG Tab PO PRN ×2 (09:58→20:09)
[2020-11-25] MEDS: Nystatin Topical Powder 15 GM Bottle TOP SCH ×2 (09:58→20:04)
[2020-11-25] MEDS: Rosuvastatin 10 MG Tab PO SCH (20:05)
[2020-11-26] MEDS: Omeprazole 20 MG Cap.CR PO SCH ×3 (06:09→17:13)
[2020-11-26] MEDS: Potassium Chloride 20 MEQ Tab.ER PO SCH (08:11)
[2020-11-26] MEDS: Nystatin Topical Powder 15 GM Bottle TOP SCH ×2 (08:11→21:17)
[2020-11-26] MEDS: Pramipexole 0.5 MG Tab PO SCH ×3 (08:18→21:16)
[2020-11-26] MEDS: Lactobacillus Rhamnosus GG (Probiotic) Cap PO SCH (08:18)
[2020-11-26] MEDS: Docusate Sodium 100 MG Cap PO SCH (08:18)
[2020-11-26] MEDS: Sertraline 50 MG Tab PO SCH (08:19)
[2020-11-26] MEDS: Furosemide 20 MG Tab PO SCH (08:19)
[2020-11-26] MEDS: Cholecalciferol (Vitamin D3) 25 MCG Tab PO SCH (08:19)
[2020-11-26] MEDS: oxyCODONE 5 MG Tab PO PRN ×2 (15:19→21:17)
[2020-11-26] MEDS: Cyclobenzaprine 10 MG Tab PO PRN (21:16)
[2020-11-26] MEDS: Rosuvastatin 10 MG Tab PO SCH (21:16)
[2020-11-27] MEDS: Omeprazole 20 MG Cap.CR PO SCH ×3 (06:20→17:06)
[2020-11-27] MEDS: Pramipexole 0.5 MG Tab PO SCH ×3 (08:09→20:19)
[2020-11-27] MEDS: Lactobacillus Rhamnosus GG (Probiotic) Cap PO SCH (08:09)
[2020-11-27] MEDS: Docusate Sodium 100 MG Cap PO SCH (08:09)
[2020-11-27] MEDS: Furosemide 20 MG Tab PO SCH (08:09)
[2020-11-27] MEDS: Cholecalciferol (Vitamin D3) 25 MCG Tab PO SCH (08:09)
[2020-11-27] MEDS: Potassium Chloride 20 MEQ Tab.ER PO SCH (08:10)
[2020-11-27] MEDS: Nystatin Topical Powder 15 GM Bottle TOP SCH (08:10)
[2020-11-27] MEDS: Sertraline 50 MG Tab PO SCH (08:10)
[2020-11-27] MEDS: oxyCODONE 5 MG Tab PO PRN ×2 (08:50→21:41)
[2020-11-27] MEDS: Prochlorperazine 5 MG Tab PO PRN (08:51)
[2020-11-27] MEDS: Ketoconazole 15 GM TUBE TOP SCH ×2 (13:28→20:20)
[2020-11-27] MEDS: Rosuvastatin 10 MG Tab PO SCH (20:20)
[2020-11-27] MEDS: LORazepam 0.5 MG Tab PO PRN (21:41)
[2020-11-28] MEDS: Omeprazole 20 MG Cap.CR PO SCH ×2 (06:30→16:55)
[2020-11-28] MEDS: Potassium Chloride 20 MEQ Tab.ER PO SCH (08:54)
[2020-11-28] MEDS: Lactobacillus Rhamnosus GG (Probiotic) Cap PO SCH (08:55)
[2020-11-28] MEDS: Pramipexole 0.5 MG Tab PO SCH ×3 (08:55→21:11)
[2020-11-28] MEDS: Furosemide 20 MG Tab PO SCH (08:56)
[2020-11-28] MEDS: Sertraline 50 MG Tab PO SCH (08:56)
[2020-11-28] MEDS: Docusate Sodium 100 MG Cap PO SCH (08:56)
[2020-11-28] MEDS: Cholecalciferol (Vitamin D3) 25 MCG Tab PO SCH (09:02)
[2020-11-28] MEDS: Ketoconazole 15 GM TUBE TOP SCH ×3 (09:04→21:10)
[2020-11-28] MEDS: LORazepam 0.5 MG Tab PO PRN ×2 (12:33→21:11)
[2020-11-28] MEDS: oxyCODONE 5 MG Tab PO PRN ×2 (12:33→21:11)
[2020-11-28] MEDS: Rosuvastatin 10 MG Tab PO SCH (21:11)
[2020-11-29] MEDS: Omeprazole 20 MG Cap.CR PO SCH ×3 (06:10→17:30)
[2020-11-29] MEDS: Ketoconazole 15 GM TUBE TOP SCH ×3 (08:07→20:56)
[2020-11-29] MEDS: Furosemide 20 MG Tab PO SCH (08:08)
[2020-11-29] MEDS: Pramipexole 0.5 MG Tab PO SCH ×3 (08:08→20:57)
[2020-11-29] MEDS: Lactobacillus Rhamnosus GG (Probiotic) Cap PO SCH (08:08)
[2020-11-29] MEDS: Potassium Chloride 20 MEQ Tab.ER PO SCH (08:08)
[2020-11-29] MEDS: Docusate Sodium 100 MG Cap PO SCH (08:08)
[2020-11-29] MEDS: Sertraline 50 MG Tab PO SCH (08:08)
[2020-11-29] MEDS: Cholecalciferol (Vitamin D3) 25 MCG Tab PO SCH (08:08)
[2020-11-29] MEDS: oxyCODONE 5 MG Tab PO PRN ×2 (09:39→20:57)
[2020-11-29] MEDS: LORazepam 0.5 MG Tab PO PRN ×2 (09:40→20:57)
[2020-11-29] MEDS ORDERED: LORazepam 0.5 MG Tab ONE (09:54)
[2020-11-29] MEDS: Rosuvastatin 10 MG Tab PO SCH (20:57)
[2020-11-30] MEDS: Omeprazole 20 MG Cap.CR PO SCH ×3 (05:56→17:45)
[2020-11-30] MEDS: Lactobacillus Rhamnosus GG (Probiotic) Cap PO SCH (08:07)
[2020-11-30] MEDS: Pramipexole 0.5 MG Tab PO SCH ×3 (08:07→21:11)
[2020-11-30] MEDS: Potassium Chloride 20 MEQ Tab.ER PO SCH (08:08)
[2020-11-30] MEDS: Furosemide 20 MG Tab PO SCH (08:08)
[2020-11-30] MEDS: Cholecalciferol (Vitamin D3) 25 MCG Tab PO SCH (08:08)
[2020-11-30] MEDS: Docusate Sodium 100 MG Cap PO SCH (08:08)
[2020-11-30] MEDS: Sertraline 50 MG Tab PO SCH (08:08)
[2020-11-30] MEDS: Ketoconazole 15 GM TUBE TOP SCH ×3 (08:09→21:14)
--- NOTE | 2020-11-30 09:25 | PCM.DCSUM1 ---
Discharge Summary - Hospital Course Free Text/Narrative:: Admission Date: 11/14/2020 Discharge Date: 12/01/2020 Disposition: Home, self care, will come outpatient for IV Vancomycin and wound vac changes. Acute Hospital Problems: Open scalp wound with bone exposed - Wound Vac - Follow-up with plastic surgery, they are monitoring the pathology of the biopsy, has follow-up 12/05. Osteomyelitis secondary to above with blood culture positive MRSA - Vancomycin, pharmacy to dose to completed 8 weeks, ending on 12/21/2019 Discoid Lupus - Clobetasol topical daily PRN - Fluocinonide 0.05% topically daily - Tacrolimus topically BID Deconditioning, resolved Non-C. diff antibiotic associated diarrhea, resolved - Probiotic 2 tabs PO daily Constipation (11/18/2020), resolved - Colace 100 mg PO daily AM, hold for loose stool - Prunes daily per patient request Secondary Diagnoses: COPD with hx of MSSA PNA 2016 - Albuterol inhaler 2 puffs q 4 hours PRN - Duonebs 3 mL q 4 hours PRN Peripheral Vascular Disease Tobacco dependence - Avoid nicotine replacement therapies due to risk of vasoconstriction Anxiety - Lorazepam 1 mg PO TID PRN Depression - Sertraline 50 mg PO daily Hyperlipidemia - Rosuvastatin 10 mg PO qhs Chronic low back pain - Oxycodone 10 mg PO q 6 hours PRN - Ibuprofen 200 mg PO q 4 hours PRN Muscle Spasm - Cyclobenzaprine 10 mg PO daily PRN RLS - Pramipexole 1 mg PO TID Peripheral edema - Furosemide 20 mg PO daily - KCl 40 mEq PO daily Rhinitis - Fluticasone 1 spray in each nostril BID CODE STATUS: Full Code Medication Changes: None Nguyen was admitted swingbed 11/14 after an inpatient stay at [facility] for an open scalp wound with osteomyelitis and MRSA bacteremia. She was hospitalized 11/03 - 11/14. She initially presented to myself in the clinic on 11/02 for a wound on her scalp she claimed happened 4-5 days prior to her evaluated. She states she hit her head on a bolt. Upon examination the wound appeared much more chronic in nature and her skull was exposed. I did a wound culture which grew out MRSA. She was counseled to present to dermatology on 11/03 and after seeing it they instructed her to present to where she was then admitted and had further work-up. 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 Reportedly she had had some intralesional kenalog injections at [facility] in [place] in the previous months. Of note, in the hospital her blood cultures grew out MRSA and she was started on vancomycin with a stop date of 12/21/2019 for a total of 8 weeks. She did undergo debridement with plastic surgery and biopsy is still pending. If there is any malignancy then ENT will become involved. She currently has a wound vac in place. She was very deconditioned and needed PT and OT services. Nguyen did well during her hospitalization. She progressed well with PT and OT. Wound size is decreasing. She is tolerating the wound vac. She is able to discharge to home and will come daily for vancomycin as an outpatient and will also get her wound vac changed per protocol as an outpatient, coordinated with her vancomycin infusions. Diagnosis: Stroke: No Modified Widener Scale: No Signif.Disability Despite Sympt.Able to Carry Out Usual Act./Duties Modified Widener Scale Score: 1 - Discharge Data Discharge Date: 12/01/20 Discharge Disposition: Home, Self-Care 01 Condition: Good - Referral to Home Health Primary Care Physician: Mildred Montenegro MD - Patient Summary/Data Consults: Consultations 11/14/20 12:15 OT Evaluation and Treatment [CONS] Routine PT Evaluation and Treatment [CONS] Routine - Patient Instructions Diet: Regular Diet as Tolerated - Discharge Plan *PRESCRIPTION DRUG MONITORING PROGRAM REVIEWED*: No *COPY OF PRESCRIPTION DRUG MONITORING REPORT IN PATIENT DAMIÁN: No Home Medications: Home Meds Albuterol [Ventolin HFA] 2 puff INH Q4H PRN 08/13/16 [History] LORazepam 1 mg PO TID PRN 04/05/17 [History] Acetaminophen [Acetaminophen Extra Strength] 500 mg PO Q4H PRN 09/25/17 [History] Rosuvastatin Calcium 10 mg PO BEDTIME 03/16/18 [History] Furosemide [Lasix] 20 mg PO DAILY 08/11/18 [History] Prochlorperazine [Compazine] 10 mg PO Q6H PRN 08/11/18 [History] oxyCODONE 10 mg PO Q6H PRN 09/16/19 [History] Clobetasol Propionate 1 applic TOP DAILY 11/02/20 [History] Fluocinonide [Lidex 0.05% Top Soln] 1 applic TOP DAILY 11/02/20 [History] L.acidoph,Paracasei, B.lactis [Probiotic] 2 cap PO DAILY 11/02/20 [History] Potassium Chloride [Klor-Con M20] 40 meq PO DAILY 11/02/20 [History] Sertraline HCl [Zoloft] 50 mg PO DAILY 11/02/20 [History] Albuterol/Ipratropium [DuoNeb 3.0-0.5 MG/3 ML] 3 ml INH Q4H PRN 11/13/20 [History] Cyclobenzaprine [Flexeril] 10 mg PO DAILY PRN 11/13/20 [History] Cholecalciferol (Vitamin D3) [Vitamin D3] 2,000 unit PO DAILY 11/14/20 [History] Nystatin [Nystop] 1 applic TP BID 11/14/20 [History] Omeprazole 20 mg PO BID 11/14/20 [History] Pramipexole [Mirapex] 1 mg PO TID 11/14/20 [History] Sennosides/Docusate Sodium [Senna-Docusate Sodium Tablet] 2 tab PO BID PRN 11/14/20 [History] Vancomycin 1 gm IV Q12H 11/14/20 [History] hydrOXYzine HCL [hydrOXYzine] 25 mg PO Q6H PRN 11/14/20 [History] Docusate Sodium [Colace] 100 mg PO DAILY cap 11/30/20 [Rx] Omeprazole 20 mg PO BIDAC cap.cr 11/30/20 [Rx] Pharmacy to Dose - Vancomycin 1 dose .XX BID each 11/30/20 [Rx] Pramipexole [Mirapex] 1 mg PO TID tablet 11/30/20 [Rx] Vancomycin 1.5 gm IV Q24H sdv 11/30/20 [Rx] - Discharge Summary/Plan Comment DC Time >30 min.: No - General Info Date of Service: 11/30/20 Admission Dx/Problem (Free Text: Admission Diagnosis/Problem Admission Diagnosis/Problem Wound - Patient Data Vitals - Most Recent: Last Vital Signs Temp 98.5 F 11/30/20 06:10 Pulse 92 11/30/20 06:10 Resp 18 11/30/20 06:10 BP 113/65 11/30/20 06:10 Pulse Ox 94 L 11/30/20 06:10 Weight - Most Recent: 119 lb 8 oz I&O - Last 24 hours: Intake & Output 11/29/20 11/30/20 11/30/20 22:59 06:59 14:59 Intake Total 580 50 Balance 580 50 Lab Results - Last 24 hrs: Laboratory Results - last 24 hr 11/30/20 Range/Units 08:35 Creatinine 0.92 (0.51-1.17) mg/dL Est Cr Clr Drug Dosing 52.43 mL/min Estimated GFR (MDRD) > 60 mL/min Vancomycin Trough 16.9 L (18.0-26.0) ug/mL Med Orders - Current: Current Medications Acetaminophen (Acetaminophen 500 Mg Tab) 500 mg PO Q4H PRN PRN Reason: MODERATE PAIN Last Admin: 11/22/20 17:39 Dose: 500 mg Documented by: Albuterol (Albuterol 8 Gm Inhaler) 0 gm INH Q4H PRN PRN Reason: Shortness of Breath Albuterol/Ipratropium (Albuterol/Ipratropium 3.0-0.5 Mg/3 Ml Neb Soln) 3 ml INH Q4H PRN PRN Reason: Shortness of Breath Cholecalciferol (Cholecalciferol (Vitamin D3) 25 Mcg Tab) 25 mcg PO DAILY [facility] Last Admin: 11/30/20 08:08 Dose: 25 mcg Documented by: Cyclobenzaprine HCl (Cyclobenzaprine 10 Mg Tab) 10 mg PO DAILY PRN PRN Reason: muscle spasms Last Admin: 11/26/20 21:16 Dose: 10 mg Documented by: Docusate Sodium (Docusate Sodium 100 Mg Cap) 100 mg PO DAILY [facility] Last Admin: 11/30/20 08:08 Dose: 100 mg Documented by: Furosemide (Furosemide 20 Mg Tab) 20 mg PO DAILY [facility] Last Admin: 11/30/20 08:08 Dose: 20 mg Documented by: Heparin Sodium (Porcine) (Heparin Sodium 100 Units/Ml 5 Ml Syringe) 300 units FLUSH 0830 [facility] Last Admin: 11/29/20 09:45 Dose: 300 units Documented by: Hydroxyzine HCl (Hydroxyzine Hcl 25 Mg Tab) 25 mg PO Q6H PRN PRN Reason: ITCHING Last Admin: 11/23/20 23:28 Dose: 25 mg Documented by: Sodium Chloride (Normal Saline) 250 mls @ 100 mls/hr IV ASDIRECTED [facility] Last Admin: 11/17/20 17:10 Dose: 100 mls/hr Documented by: Vancomycin HCl 1.5 gm/ Sodium (Chloride) 250 mls @ 166.667 mls/hr IV Q24H [facility] Last Admin: 11/29/20 09:00 Dose: 166.667 mls/hr Documented by: Ketoconazole (Ketoconazole 15 Gm Tube) 0 gm TOP TID [facility] Last Admin: 11/30/20 08:09 Dose: 1 applic Documented by: Lactobacillus Rhamnosus (Lactobacillus Rhamnosus Gg (Probiotic) Cap) 2 cap PO DAILY [facility] Last Admin: 11/30/20 08:07 Dose: 2 cap Documented by: Lorazepam (Lorazepam 0.5 Mg Tab) 1 mg PO TID PRN PRN Reason: Anxiety Last Admin: 11/29/20 20:57 Dose: 1 mg Documented by: Omeprazole (Omeprazole 20 Mg Cap.Cr) 20 mg PO BIDAC [facility] Last Admin: 11/30/20 06:30 Dose: Not Given Documented by: Oxycodone HCl (Oxycodone 5 Mg Tab) 10 mg PO Q6H PRN PRN Reason: MODERATE OR SEVERE PAIN Last Admin: 11/29/20 20:57 Dose: 10 mg Documented by: Potassium Chloride (Potassium Chloride 20 Meq Tab.Er) 40 meq PO DAILY [facility] Last Admin: 11/30/20 08:08 Dose: 40 meq Documented by: Pramipexole Dihydrochloride (Pramipexole 0.5 Mg Tab) 1 mg PO TID [facility] Last Admin: 11/30/20 08:07 Dose: 1 mg Documented by: Prochlorperazine Maleate (Prochlorperazine 5 Mg Tab) 10 mg PO Q6H PRN PRN Reason: Vomiting Last Admin: 11/27/20 08:51 Dose: 10 mg Documented by: Rosuvastatin Calcium (Rosuvastatin 10 Mg Tab) 10 mg PO BEDTIME [facility] Last Admin: 11/29/20 20:57 Dose: 10 mg Documented by: Sertraline HCl (Sertraline 50 Mg Tab) 50 mg PO DAILY [facility] Last Admin: 11/30/20 08:08 Dose: 50 mg Documented by: Vancomycin HCl (Pharmacy To Dose - Vancomycin) 1 dose .XX BID [facility] Stop: 12/20/20 21:01 Discontinued Medications Acetaminophen (Acetaminophen 500 Mg Tab) 500 mg PO DAILY PRN PRN Reason: Pain Cyclobenzaprine HCl (Cyclobenzaprine 10 Mg Tab) 10 mg PO TID PRN PRN Reason: muscle spasms Heparin Sodium (Porcine) (Heparin Sodium 100 Units/Ml 5 Ml Syringe) 300 units FLUSH 0800,2000 [facility] Last Admin: 11/17/20 08:20 Dose: 300 units Documented by: Heparin Sodium (Porcine) (Heparin Sodium 100 Units/Ml 5 Ml Syringe) 300 units FLUSH 1100,2300 [facility] Last Admin: 11/20/20 11:00 Dose: Not Given Documented by: Vancomycin HCl 1 gm/ Sodium (Chloride) 250 mls @ 166.667 mls/hr IV Q12H [facility] Last Admin: 11/17/20 19:38 Dose: Not Given Documented by: Vancomycin HCl 0.75 gm/ Sodium (Chloride) 250 mls @ 166.667 mls/hr IV Q12H [facility] Last Admin: 11/19/20 13:59 Dose: Not Given Documented by: Vancomycin HCl 1 gm/ Sodium (Chloride) 250 mls @ 166.667 mls/hr IV Q24H [facility] Last Admin: 11/22/20 18:20 Dose: Not Given Documented by: Vancomycin HCl 1.25 gm/ Sodium (Chloride) 250 mls @ 166.667 mls/hr IV Q24H [facility] Last Admin: 11/27/20 09:23 Dose: Not Given Documented by: Lorazepam (Lorazepam 0.5 Mg Tab) Confirm Administered Dose 0.5 mg .ROUTE .STK- MED ONE Stop: 11/29/20 09:55 Last Admin: 11/29/20 09:55 Dose: 0.5 mg Documented by: Nystatin (Nystatin Topical Powder 15 Gm Bottle) 0 gm TOP BID [facility] Last Admin: 11/27/20 08:10 Dose: 1 applic Documented by: - Exam Quality Assessment: Reports: Central Line/PICC General: Reports: Alert, Oriented, Cooperative, No Acute Distress Lungs: Reports: Clear to Auscultation, Normal Respiratory Effort Cardiovascular: Reports: Regular Rate, Regular Rhythm, No Murmurs GI/Abdominal Exam: Normal Bowel Sounds, Soft, Non-Tender, No Organomegaly, No Distention Wound/Incisions: Reports: Other (Wound Vac in place)
[2020-11-30] MEDS: Sodium Chloride 0.9% 250 ML IV SCH (09:51)
[2020-11-30] MEDS: LORazepam 0.5 MG Tab PO PRN ×2 (09:51→21:11)
[2020-11-30] MEDS: oxyCODONE 5 MG Tab PO PRN ×2 (09:52→21:11)
[2020-11-30] MEDS ORDERED: Sodium Chloride 0.9% 100 ML IV PRN (13:15)
[2020-11-30] MEDS: Rosuvastatin 10 MG Tab PO SCH (21:12)
[2020-12-01] MEDS: Omeprazole 20 MG Cap.CR PO SCH ×2 (06:06→06:32)
[2020-12-01 06:22] VITALS: BP 136/75; PULSE 78
[2020-12-01] MEDS: Cholecalciferol (Vitamin D3) 25 MCG Tab PO SCH (08:26)
[2020-12-01] MEDS: Furosemide 20 MG Tab PO SCH (08:26)
[2020-12-01] MEDS: Docusate Sodium 100 MG Cap PO SCH (08:26)
[2020-12-01] MEDS: Pramipexole 0.5 MG Tab PO SCH ×2 (08:26→14:15)
[2020-12-01] MEDS: Sertraline 50 MG Tab PO SCH (08:26)
[2020-12-01] MEDS: Potassium Chloride 20 MEQ Tab.ER PO SCH (08:26)
[2020-12-01] MEDS: Lactobacillus Rhamnosus GG (Probiotic) Cap PO SCH (08:27)
[2020-12-01] MEDS: Ketoconazole 15 GM TUBE TOP SCH ×2 (08:28→14:16)
[2020-12-01] MEDS: Prochlorperazine 5 MG Tab PO PRN (09:14)
[2020-12-01] MEDS: oxyCODONE 5 MG Tab PO PRN (10:22)
[2020-12-01] MEDS: LORazepam 0.5 MG Tab PO PRN (10:23)
== END 2020-12-01 16:05 | disposition home or self-care (01) | DRG 949 ==
LOC: KA.MS 12:34 → UNDOADMIN 12:34
PROVIDERS: ADMIT Internal Medicine; ATTEND Internal Medicine
DX: T81.49XD Infection following a procedure, other surgical site, subsequent encounter (principal); M86.9 Osteomyelitis, unspecified; K52.1 Toxic gastroenteritis and colitis; D84.9 Immunodeficiency, unspecified; L93.0 Discoid lupus erythematosus; R53.81 Other malaise; T36.95XA Adverse effect of unspecified systemic antibiotic, initial encounter; K59.00 Constipation, unspecified; B95.62 Methicillin resistant Staphylococcus aureus infection as the cause of diseases classified elsewhere; J44.9 Chronic obstructive pulmonary disease, unspecified; Z87.01 Personal history of pneumonia (recurrent); F32.9 Major depressive disorder, single episode, unspecified; M54.5 Low back pain; G89.29 Other chronic pain; M62.838 Other muscle spasm; G25.81 Restless legs syndrome; J31.0 Chronic rhinitis; F17.200 Nicotine dependence, unspecified, uncomplicated; E78.5 Hyperlipidemia, unspecified; I73.9 Peripheral vascular disease, unspecified; H54.7 Unspecified visual loss; I10 Essential (primary) hypertension; K59.09 Other constipation; M54.9 Dorsalgia, unspecified; M54.2 Cervicalgia; K21.9 Gastro-esophageal reflux disease without esophagitis; F41.0 Panic disorder [episodic paroxysmal anxiety]; Z88.0 Allergy status to penicillin; Z88.6 Allergy status to analgesic agent; Z88.8 Allergy status to other drugs, medicaments and biological substances; Z79.899 Other long term (current) drug therapy
CPT/HCPCS: 36415; 80202; 82550; 82565; 84460; 85025; 97110-GO; 97110-GP; 97140-GP; 97162-GP; 97530-GO; 97535-GO; 97537-GP; 97606; A9270-GY; J1642; J3370; J7050; Q0164

== ENCOUNTER 2021-04-12 15:27 | Inpatient (IN) | payer MEDICARE, BC, OTHER ==
[2021-04-12] MEDS ORDERED: Albuterol 8 GM Inhaler INH PRN (17:04)
[2021-04-12] MEDS ORDERED: Fluticasone Propionate Nasal Spray 16 GM Bottle NAS PRN (17:04)
[2021-04-12] MEDS ORDERED: Albuterol/Ipratropium 3.0-0.5 MG/3 ML Neb Soln INH PRN (17:04)
[2021-04-12] MEDS ORDERED: Diclofenac Sodium 1% Gel 100 GM Tube TOP PRN (17:04)
[2021-04-12] MEDS ORDERED: Non-Formulary Medication 1 Each (Lidocaine 4% [Aspercreme 4%] 1 EACH Patch) TP PRN (17:04)
[2021-04-12] MEDS ORDERED: Acetaminophen 500 MG Tab PO PRN (17:04)
[2021-04-12] MEDS ORDERED: CEFEPIME 2 GM/50 ML IV SCH (17:15)
--- NOTE | 2021-04-12 17:40 | PCM.HP.2 ---
H&P History of Present Illness - General Date of Service: 04/12/21 Admit Problem/Dx: Admission Diagnosis/Problem Admission Diagnosis/Problem Osteomyelitis - History of Present Illness Initial Comments - Free Text/Narative: Nguyen is admitted to 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 She has no concerns today. She states the wound vac is not bothersome or painful. She states yesterday (04/11) she had an episode of lightheadedness and nausea and so today she only wants to eat some toast. She is not currently nauseated. She does not have any questions for me. She has a PICC In her LUE for her IV antibiotics. She is on cefepime 2 grams IV q 8 hours and daptomycin 350 mg IV daily. This is per infections. Nguyen reports she will need to be on this for 6 weeks. - Related Data Allergies/Adverse Reactions: Allergies Allergy/AdvReac Type Severity Reaction Status Date / Time amoxicillin [From Augmentin] Allergy Severe Redness Verified 04/12/21 17:44 clavulanic acid Allergy Severe Redness Verified 04/12/21 17:44 [From Augmentin] bupropion Allergy Cannot Verified 04/12/21 17:44 Remember fluconazole [From Diflucan] Allergy Confusion Verified 04/12/21 17:44 clavulanic acid Allergy Other Uncoded 04/12/21 17:44 Home Medications: Home Meds Albuterol [Ventolin HFA] 2 puff INH Q4H PRN 08/13/16 [History] LORazepam 1 mg PO TID PRN 04/05/17 [History] Acetaminophen [Acetaminophen Extra Strength] 500 mg PO Q4H PRN 09/25/17 [History] Furosemide [Lasix] 20 mg PO BID 08/11/18 [History] Prochlorperazine [Compazine] 10 mg PO Q6H PRN 08/11/18 [History] oxyCODONE 10 mg PO Q6H PRN 09/16/19 [History] Clobetasol Propionate 1 applic TOP DAILY 11/02/20 [History] Fluocinonide [Lidex 0.05% Top Soln] 1 applic TOP DAILY 11/02/20 [History] L.acidoph,Paracasei, B.lactis [Probiotic] 2 cap PO DAILY 11/02/20 [History] Potassium Chloride [Klor-Con M20] 20 meq PO BID 11/02/20 [History] Sertraline HCl [Zoloft] 50 mg PO DAILY 11/02/20 [History] Albuterol/Ipratropium [DuoNeb 3.0-0.5 MG/3 ML] 3 ml INH Q4H PRN 11/13/20 [History] Cyclobenzaprine [Flexeril] 10 mg PO TID PRN 11/13/20 [History] Cholecalciferol (Vitamin D3) [Vitamin D3] 2,000 unit PO DAILY 11/14/20 [History] Nystatin [Nystop] 1 applic TP BID 11/14/20 [History] Pramipexole [Mirapex] 1 mg PO TID 11/14/20 [History] hydrOXYzine HCL [hydrOXYzine] 25 mg PO Q6H PRN 11/14/20 [History] Docusate Sodium [Colace] 100 mg PO DAILY cap 11/30/20 [Rx] Omeprazole 20 mg PO BIDAC cap.cr 11/30/20 [Rx] Cefepime [Maxipime in D5W 2 GM/50 ML] 2,000 mg IV Q12HR 04/12/21 [History] DAPTOmycin [Cubicin] 350 mg IV DAILY 04/12/21 [History] Diclofenac Sodium [Voltaren 1% Gel] 1 applic TOP ASDIRECTED PRN 04/12/21 [History] Fluticasone Propionate [Flonase] 50 mcg [place]RISTIANA DAILY PRN 04/12/21 [History] Heparin Sodium,Porcine/PF [Heparin Lock Flush 100 Unit/ml] 300 unit IV ASDIRECTED 04/12/21 [History] Lidocaine 4% [Aspercreme 4%] 1 each TP ASDIRECTED PRN 04/12/21 [History] Sodium Chloride 0.9% [Saline Flush Sterile Syringe] 10 ml IV ASDIRECTED 04/12/21 [History] Zinc Gluconate [Zinc] 50 mg PO DAILY 04/12/21 [History] Past Medical History HEENT History: Reports: Impaired Vision, Sinusitis Cardiovascular History: Reports: Hypertension Respiratory History: Reports: Bronchitis, Recurrent, COPD, Pneumonia, Recurrent, SOB, Other (See Below) Other Respiratory History: URI FREQUENT. TOBACCO USE Gastrointestinal History: Reports: Bowel Obstruction, Chronic Constipation, GERD, Hemorrhoids [employer] History: Reports: Musculoskeletal History: Reports: Amputation, Arthritis, Back Pain, Chronic, Neck Pain, Chronic, SLE, Other (See Below) Other Musculoskeletal History: L 3. 1/2 of toe. arthritis - feet. degen of disks. 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 - tpo and po tx for same - Infectious Disease History Infectious Disease History: Reports: Chicken Pox, Measles, Mumps - Past Surgical History Head Surgeries/Procedures: Reports: None HEENT Surgical History: Reports: None Cardiovascular Surgical History: Reports: None, Vascular Surgery, Other (See Below) Other Cardiovascular Surgeries/Procedures: stent to L groin artery - baloon to R groin artery - october 2017 Respiratory Surgical History: Reports: None GI Surgical History: Reports: Colonoscopy, EGD Other GI Surgeries/Procedures: 2017 Endocrine Surgical History: Reports: None Neurological Surgical History: Reports: None Musculoskeletal Surgical History: Reports: Amputation Oncologic Surgical History: Reports: None Dermatological Surgical History: Reports: None Social & Family History - Family History Family Medical History: No Pertinent Family History - Caffeine Use Caffeine Use: Reports: Coffee, Soda Other Caffeine Use: diet coke. powerade H&P Review of Systems - Review of Systems: Review Of Systems: See Below Exam - Exam Exam: See Below - Exam General: Alert, Oriented, Cooperative, Mild Distress Lungs: Clear to Auscultation, Normal Respiratory Effort Cardiovascular: Regular Rate, Regular Rhythm GI/Abdominal Exam: Normal Bowel Sounds Extremities: No Pedal Edema Skin: Other (Wound vac in place on calvarium.) Problem List Initiated/Reviewed/Updated: Yes Orders Last 24hrs: Active Orders 24 hr Category Date Time Status Admission Status [Patient Status] [ADT] Routine ADT 11/24/21 15:30 Active Communication Order [RC] DAILY Care 04/12/21 16:39 Active Communication Order [RC] DAILY Care 04/12/21 16:41 Active Communication Order [RC] DAILY Care 04/12/21 16:49 Active Communication Order [RC] DAILY Care 04/12/21 16:54 Active Oxygen Therapy [RC] PRN Care 04/12/21 17:03 Active RT Aerosol Therapy [RC] ASDIRECTED Care 04/12/21 17:06 Active RT Post Treatment Assessment [RC] Click to Edit Care 04/12/21 17:06 Active RT Pre-Treatment Assessment [RC] Click to Edit Care 04/12/21 17:06 Active Up ad Maureen [RC] ASDIRECTED Care 04/12/21 17:03 Active VTE/DVT Education [RC] PER UNIT ROUTINE Care 04/12/21 17:03 Active Vital Signs [RC] DAILY Care 04/12/21 17:03 Active Regular Diet [DIET] Diet 04/12/21 Dinner Active ALANINE AMINOTRANSFERASE,ALT [CHEM] WEEKLY Lab 04/14/21 05:11 Ordered ALANINE AMINOTRANSFERASE,ALT [CHEM] WEEKLY Lab 04/21/21 05:11 Ordered ALANINE AMINOTRANSFERASE,ALT [CHEM] WEEKLY Lab 04/28/21 05:11 Ordered ALANINE AMINOTRANSFERASE,ALT [CHEM] WEEKLY Lab 05/05/21 05:11 Ordered ALANINE AMINOTRANSFERASE,ALT [CHEM] WEEKLY Lab 05/12/21 05:11 Ordered ALANINE AMINOTRANSFERASE,ALT [CHEM] WEEKLY Lab 05/19/21 05:11 Ordered CBC WITH AUTO DIFF [HEME] WEEKLY Lab 04/14/21 05:11 Ordered CBC WITH AUTO DIFF [HEME] WEEKLY Lab 04/21/21 05:11 Ordered CBC WITH AUTO DIFF [HEME] WEEKLY Lab 04/28/21 05:11 Ordered CBC WITH AUTO DIFF [HEME] WEEKLY Lab 05/05/21 05:11 Ordered CBC WITH AUTO DIFF [HEME] WEEKLY Lab 05/12/21 05:11 Ordered CBC WITH AUTO DIFF [HEME] WEEKLY Lab 05/19/21 05:11 Ordered CREATINE KINASE,CK [CHEM] WEEKLY Lab 04/14/21 05:11 Ordered CREATINE KINASE,CK [CHEM] WEEKLY Lab 04/21/21 05:11 Ordered CREATINE KINASE,CK [CHEM] WEEKLY Lab 04/28/21 05:11 Ordered CREATINE KINASE,CK [CHEM] WEEKLY Lab 05/05/21 05:11 Ordered CREATINE KINASE,CK [CHEM] WEEKLY Lab 05/12/21 05:11 Ordered CREATINE KINASE,CK [CHEM] WEEKLY Lab 05/19/21 05:11 Ordered CREATININE W/GFR [CHEM] WEEKLY Lab 04/14/21 05:11 Ordered CREATININE W/GFR [CHEM] WEEKLY Lab 04/21/21 05:11 Ordered CREATININE W/GFR [CHEM] WEEKLY Lab 04/28/21 05:11 Ordered CREATININE W/GFR [CHEM] WEEKLY Lab 05/05/21 05:11 Ordered CREATININE W/GFR [CHEM] WEEKLY Lab 05/12/21 05:11 Ordered CREATININE W/GFR [CHEM] WEEKLY Lab 05/19/21 05:11 Ordered Acetaminophen [Tylenol Extra Strength] Med 04/12/21 17:04 Active 500 mg PO Q4H PRN Albuterol [Ventolin HFA] Med 04/12/21 17:04 Active 0 gm INH Q4H PRN Albuterol/Ipratropium [DuoNeb 3.0-0.5 MG/3 ML] Med 04/12/21 17:04 Active 3 ml INH Q4H PRN Cefepime Med 04/12/21 17:15 Ordered 2,000 mg IV Q12HR Cholecalciferol (Vitamin D3) [Vitamin D3] Med 04/13/21 09:00 Active 50 mcg PO DAILY Clobetasol Propionate [Clobetasol Propionate] Med 04/13/21 09:00 Ordered 1 applic TOP DAILY Cyclobenzaprine [Flexeril] Med 04/12/21 17:04 Active 10 mg PO TID PRN DAPTOmycin [Cubicin] Med 04/13/21 09:00 Ordered 350 mg IV DAILY Diclofenac Sodium [Voltaren 1% Gel] Med 04/12/21 17:04 Pending DOSE gm TOP ASDIRECTED PRN Docusate Sodium [Colace] Med 04/13/21 09:00 Active 100 mg PO DAILY Fluocinonide [Lidex 0.05% Top Soln] Med 04/13/21 09:00 Ordered 1 applic TOP DAILY Fluticasone Propionate [Flonase] Med 04/12/21 17:04 Active 0 gm CHRISTIANA DAILY PRN Furosemide [Lasix] Med 04/12/21 21:00 Active 20 mg PO BID Heparin Sodium,Porcine/PF [Heparin Lock Flush 100 Unit/ Med 04/12/21 17:15 Pending ml] 300 unit IV ASDIRECTED L.acidoph,Paracasei, B.lactis [Probiotic] Med 04/13/21 09:00 Pending 2 cap PO DAILY LORazepam [Ativan] Med 04/12/21 17:04 Active 1 mg PO TID PRN Lidocaine 4% [Aspercreme 4%] Med 04/12/21 17:04 Pending 1 each TP ASDIRECTED PRN Nystatin [Nystop] Med 04/12/21 21:00 Active 0 gm TOP BID Pantoprazole [ProTONIX] Med 04/12/21 17:30 Active 40 mg PO BIDAC Potassium Chloride [Klor-Con M20] Med 04/12/21 21:00 Active 20 meq PO BID Pramipexole [Mirapex] Med 04/12/21 21:00 Active 1 mg PO TID Prochlorperazine [Compazine] Med 04/12/21 17:04 Ordered 10 mg PO Q6H PRN Sertraline [Zoloft] Med 04/13/21 09:00 Active 50 mg PO DAILY Sodium Chloride 0.9% Med 04/12/21 17:15 Pending 10 ml IV ASDIRECTED Zinc Gluconate [Zinc] Med 04/13/21 09:00 Active 50 mg PO DAILY hydrOXYzine HCL [Atarax] Med 04/12/21 17:04 Active 25 mg PO Q6H PRN oxyCODONE Med 04/12/21 17:04 Active 10 mg PO Q6H PRN Resuscitation Status Routine Resus Stat 04/12/21 17:03 Ordered Medication Orders Acetaminophen (Acetaminophen 500 Mg Tab) 500 mg PO Q4H PRN PRN Reason: Pain Albuterol (Albuterol 8 Gm Inhaler) 0 gm INH Q4H PRN PRN Reason: Shortness of Breath Albuterol/Ipratropium (Albuterol/Ipratropium 3.0-0.5 Mg/3 Ml Neb Soln) 3 ml INH Q4H PRN PRN Reason: Shortness of Breath Cholecalciferol (Cholecalciferol (Vitamin D3) 25 Mcg Tab) 50 mcg PO DAILY NGUYỄN Cyclobenzaprine HCl (Cyclobenzaprine 10 Mg Tab) 10 mg PO TID PRN PRN Reason: muscle spasms Daptomycin (Daptomycin 500 Mg Vial) 350 mg IV DAILY [facility] Diclofenac Sodium (Diclofenac Sodium 1% Gel 100 Gm Tube) gm TOP ASDIRECTED PRN PRN Reason: Pain Docusate Sodium (Docusate Sodium 100 Mg Cap) 100 mg PO DAILY [facility] Fluticasone Propionate (Fluticasone Propionate Nasal [place] 16 Gm Bottle) 0 gm CHRISTIANA DAILY PRN PRN Reason: Allergies Furosemide (Furosemide 20 Mg Tab) 20 mg PO BID [facility] Hydroxyzine HCl (Hydroxyzine Hcl 25 Mg Tab) 25 mg PO Q6H PRN PRN Reason: Itching Lorazepam (Lorazepam 0.5 Mg Tab) 1 mg PO TID PRN PRN Reason: Anxiety Non-Formulary Medication (Cefepime) 2,000 mg IV Q12HR NGUYỄN Non-Formulary Medication (Clobetasol Propionate [Clobetasol Propionate]) 1 applic TOP DAILY NGUYỄN Non-Formulary Medication (Fluocinonide [Lidex 0.05% Top Soln]) 1 applic TOP DAILY NGU[facility]N Non-Formulary Medication (Heparin Sodium,Porcine/Pf [Heparin Lock Flush 100 Unit/Ml]) 300 unit IV ASDIRECTED [facility] Non-Formulary Medication (L.Acidoph,Paracasei, B.Lactis [Probiotic]) 2 cap PO D AILY NGUY[facility]N Non-Formulary Medication (Lidocaine 4% [Aspercreme 4%]) 1 each TP ASDIRECTED PRN PRN Reason: Pain Non-Formulary Medication (Sodium Chloride 0.9%) 10 ml IV ASDIRECTED [facility] Nystatin (Nystatin Topical Powder 15 Gm Bottle) 0 gm TOP BID NGUY[facility]N Oxycodone HCl (Oxycodone 5 Mg Tab) 10 mg PO Q6H PRN PRN Reason: Pain Pantoprazole Sodium (Pantoprazole 40 Mg Tab.Cr) 40 mg PO BIDAC [facility] Potassium Chloride (Potassium Chloride 20 Meq Tab.Er) 20 meq PO BID [facility] Pramipexole Dihydrochloride (Pramipexole 0.5 Mg Tab) 1 mg PO TID [facility] Prochlorperazine Maleate (Prochlorperazine 5 Mg Tab) 10 mg PO Q6H PRN PRN Reason: Vomiting Sertraline HCl (Sertraline 50 Mg Tab) 50 mg PO DAILY [facility] Zinc Gluconate (Zinc (Zinc Gluconate) 50 Mg Tab) 50 mg PO DAILY NGUY[facility]N Assessment/Plan Comment:: Admission Diagnosis: Scalp wound with osteomyelitis of the calvarium s/p excisional debridement and wound vac placement 04/06/2021 - Cefepime 2 grams IV q 8 hours - Daptomycin 350 mg IV daily - Wound vac changes q 3 days Secondary Diagnoses: Hx hypokalemia - KCl 40 mEq PO daily COPD - Albuterol nebs q 4 hours PRN Anxiety - Sertraline 50 mg PO daily - Hydroxyzine 25 mg PO BID PRN - Lorazepam 1 mg PO TID PRN Hyperlipidemia - Rosuvastatin 10 mg PO qhs RLS - Pramipexole 1 mg PO TID Acid Reflux - Omeprazole 20 mg PO BID Hx peripheral edema - Furosemide 20 mg PO BID Chronic Pain - Oxycodone 5 mg PO q 4 hours PRN Pain Multiple other vitamins and supplements the patient is on, see med list. CODE STATUS: Full Code - Mortality Measure Prognosis:: Good
[2021-04-12] MEDS: Pantoprazole 40 MG Tab.CR PO SCH (18:57)
[2021-04-12] MEDS: Furosemide 20 MG Tab PO SCH (18:57)
[2021-04-12] MEDS ORDERED: Furosemide 20 MG Tab PO SCH (21:00)
[2021-04-12] MEDS: Potassium Chloride 20 MEQ Tab.ER PO SCH (21:15)
[2021-04-12] MEDS: Cyclobenzaprine 10 MG Tab PO PRN (21:15)
[2021-04-12] MEDS: Pramipexole 0.5 MG Tab PO SCH (21:17)
[2021-04-12] MEDS: Sodium Chloride 0.9% 10 ML Syringe IV PRN ×2 (21:17→22:23)
[2021-04-12] MEDS: Cefepime 2 GM in Sodium Chloride 0.9% 50 ML IV SCH (21:17)
[2021-04-12] MEDS: Sodium Chloride 0.9% 100 ML IV SCH (21:18)
[2021-04-12] MEDS: Nystatin Topical Powder 15 GM Bottle TOP SCH (21:18)
[2021-04-13] MEDS: Pantoprazole 40 MG Tab.CR PO SCH ×3 (06:00→17:22)
[2021-04-13] MEDS: Pramipexole 0.5 MG Tab PO SCH ×3 (08:22→20:41)
[2021-04-13] MEDS: Zinc (Zinc Gluconate) 50 MG Tab PO SCH (08:23)
[2021-04-13] MEDS: Docusate Sodium 100 MG Cap PO SCH (08:23)
[2021-04-13] MEDS: Cholecalciferol (Vitamin D3) 25 MCG Tab PO SCH (08:23)
[2021-04-13] MEDS: Furosemide 20 MG Tab PO SCH ×2 (08:24→15:27)
[2021-04-13] MEDS: Sertraline 50 MG Tab PO SCH (08:24)
[2021-04-13] MEDS: Potassium Chloride 20 MEQ Tab.ER PO SCH ×2 (08:24→20:42)
[2021-04-13] MEDS ORDERED: CLOBETASOL PROPIONATE TOP SCH (09:00)
[2021-04-13] MEDS ORDERED: Non-Formulary Medication 1 Each (L.Acidoph,Paracasei, B.Lactis [Probiotic] 1 EACH Capsule) PO SCH (09:00)
[2021-04-13] MEDS ORDERED: FLUOCINONIDE TOP SCH (09:00)
[2021-04-13] MEDS: Sodium Chloride 0.9% 100 ML IV SCH (09:50)
[2021-04-13] MEDS: DAPTOmycin 500 MG Vial IV SCH (09:54)
[2021-04-13] MEDS: Cefepime 2 GM in Sodium Chloride 0.9% 50 ML IV SCH ×2 (09:58→20:42)
[2021-04-13] MEDS ORDERED: Lidocaine 5% 700 MG Patch TOP PRN (10:26)
[2021-04-13] MEDS ORDERED: Diclofenac Sodium 1% Gel 100 GM Tube TOP PRN ×2 (10:26→11:03)
[2021-04-13] MEDS: TACROLIMUS 0.1% TOP SCH ×2 (10:30→20:45)
[2021-04-13] MEDS: Nystatin Topical Powder 15 GM Bottle TOP SCH ×2 (11:20→20:45)
[2021-04-13] MEDS: Sodium Chloride 0.9% 10 ML Syringe IV PRN ×3 (11:42→21:29)
[2021-04-13] MEDS: LORazepam 0.5 MG Tab PO PRN (17:37)
[2021-04-13] MEDS: hydrOXYzine HCl 25 MG Tab PO PRN (20:36)
[2021-04-13] MEDS: Cyclobenzaprine 10 MG Tab PO PRN (20:42)
[2021-04-14] MEDS: Pantoprazole 40 MG Tab.CR PO SCH ×4 (06:00→20:28)
[2021-04-14] MEDS: Cyclobenzaprine 10 MG Tab PO PRN (06:00)
[2021-04-14] MEDS: Cholecalciferol (Vitamin D3) 25 MCG Tab PO SCH (08:46)
[2021-04-14] MEDS: Pramipexole 0.5 MG Tab PO SCH ×3 (08:46→20:29)
[2021-04-14] MEDS: Lactobacillus Rhamnosus GG (Probiotic) Cap PO SCH (08:46)
[2021-04-14] MEDS: Docusate Sodium 100 MG Cap PO SCH (08:46)
[2021-04-14] MEDS: Potassium Chloride 20 MEQ Tab.ER PO SCH ×2 (08:46→20:29)
[2021-04-14] MEDS: Furosemide 20 MG Tab PO SCH ×2 (08:47→15:11)
[2021-04-14] MEDS: Sertraline 50 MG Tab PO SCH (08:47)
[2021-04-14] MEDS: Zinc (Zinc Gluconate) 50 MG Tab PO SCH (08:47)
[2021-04-14] MEDS: DAPTOmycin 500 MG Vial IV SCH (09:07)
[2021-04-14] MEDS: Cefepime 2 GM in Sodium Chloride 0.9% 50 ML IV SCH ×2 (09:08→20:32)
[2021-04-14] MEDS: Nystatin Topical Powder 15 GM Bottle TOP SCH ×2 (09:23→20:31)
[2021-04-14] MEDS: TACROLIMUS 0.1% TOP SCH ×2 (09:24→20:31)
[2021-04-14] MEDS: LORazepam 0.5 MG Tab PO PRN ×2 (09:30→20:29)
[2021-04-14] MEDS: Sodium Chloride 0.9% 100 ML IV SCH (20:31)
[2021-04-14] MEDS: Sodium Chloride 0.9% 10 ML Syringe IV PRN ×2 (20:31→21:25)
[2021-04-15] MEDS: Pantoprazole 40 MG Tab.CR PO SCH ×2 (11:09→18:22)
[2021-04-15] MEDS: Docusate Sodium 100 MG Cap PO SCH (11:09)
[2021-04-15] MEDS: Furosemide 20 MG Tab PO SCH ×2 (11:09→15:47)
[2021-04-15] MEDS: DAPTOmycin 500 MG Vial IV SCH (11:09)
[2021-04-15] MEDS: Lactobacillus Rhamnosus GG (Probiotic) Cap PO SCH (11:09)
[2021-04-15] MEDS: Potassium Chloride 20 MEQ Tab.ER PO SCH ×2 (11:09→20:20)
[2021-04-15] MEDS: Pramipexole 0.5 MG Tab PO SCH ×3 (11:10→20:20)
[2021-04-15] MEDS: Cefepime 2 GM in Sodium Chloride 0.9% 50 ML IV SCH ×2 (11:10→20:22)
[2021-04-15] MEDS: TACROLIMUS 0.1% TOP SCH ×2 (11:10→20:25)
[2021-04-15] MEDS: Nystatin Topical Powder 15 GM Bottle TOP SCH ×2 (11:11→20:25)
[2021-04-15] MEDS: Cholecalciferol (Vitamin D3) 25 MCG Tab PO SCH (11:11)
[2021-04-15] MEDS: Zinc (Zinc Gluconate) 50 MG Tab PO SCH (11:11)
[2021-04-15] MEDS: Sertraline 50 MG Tab PO SCH (11:11)
[2021-04-15] MEDS: LORazepam 0.5 MG Tab PO PRN (15:48)
[2021-04-15] MEDS: Sodium Chloride 0.9% 10 ML Syringe IV PRN ×2 (20:21→21:25)
[2021-04-15] MEDS: Sodium Chloride 0.9% 100 ML IV SCH (20:22)
[2021-04-15] MEDS: oxyCODONE 5 MG Tab PO PRN (21:25)
[2021-04-16] MEDS: Pantoprazole 40 MG Tab.CR PO SCH ×2 (07:37→17:50)
[2021-04-16] MEDS: Cholecalciferol (Vitamin D3) 25 MCG Tab PO SCH (09:02)
[2021-04-16] MEDS: Sertraline 50 MG Tab PO SCH (09:02)
[2021-04-16] MEDS: Furosemide 20 MG Tab PO SCH ×2 (09:02→14:29)
[2021-04-16] MEDS: Docusate Sodium 100 MG Cap PO SCH (09:02)
[2021-04-16] MEDS: Zinc (Zinc Gluconate) 50 MG Tab PO SCH (09:03)
[2021-04-16] MEDS: Potassium Chloride 20 MEQ Tab.ER PO SCH ×3 (09:03→21:00)
[2021-04-16] MEDS: Pramipexole 0.5 MG Tab PO SCH ×4 (09:03→21:01)
[2021-04-16] MEDS: Lactobacillus Rhamnosus GG (Probiotic) Cap PO SCH (09:03)
[2021-04-16] MEDS: hydrOXYzine HCl 25 MG Tab PO PRN ×3 (09:03→22:25)
[2021-04-16] MEDS: Sodium Chloride 0.9% 10 ML Syringe IV PRN ×3 (09:05→10:31)
[2021-04-16] MEDS: Nystatin Topical Powder 15 GM Bottle TOP SCH (09:06)
[2021-04-16] MEDS: DAPTOmycin 500 MG Vial IV SCH (09:06)
[2021-04-16] MEDS: TACROLIMUS 0.1% TOP SCH (09:06)
[2021-04-16] MEDS: Cefepime 2 GM in Sodium Chloride 0.9% 50 ML IV SCH ×3 (09:10→21:01)
[2021-04-16] MEDS ORDERED: Nystatin Topical Powder 15 GM Bottle TOP PRN (13:29)
[2021-04-16] MEDS ORDERED: Non-Formulary Medication 1 Each TOP PRN (13:29)
[2021-04-16] MEDS ORDERED: TACROLIMUS 0.1% TOP PRN (13:51)
[2021-04-16] MEDS: Prochlorperazine 5 MG Tab PO PRN (15:54)
[2021-04-16] MEDS: LORazepam 0.5 MG Tab PO PRN (22:25)
[2021-04-17] MEDS: oxyCODONE 5 MG Tab PO PRN ×3 (02:23→21:16)
[2021-04-17] MEDS: Pantoprazole 40 MG Tab.CR PO SCH ×3 (06:00→16:58)
[2021-04-17] MEDS: DAPTOmycin 500 MG Vial IV SCH (10:03)
[2021-04-17] MEDS: Sodium Chloride 0.9% 100 ML IV SCH (10:11)
[2021-04-17] MEDS: Cefepime 2 GM in Sodium Chloride 0.9% 50 ML IV SCH ×2 (10:11→21:12)
[2021-04-17] MEDS: Zinc (Zinc Gluconate) 50 MG Tab PO SCH (10:13)
[2021-04-17] MEDS: Cholecalciferol (Vitamin D3) 25 MCG Tab PO SCH (10:13)
[2021-04-17] MEDS: Sertraline 50 MG Tab PO SCH (10:13)
[2021-04-17] MEDS: Pramipexole 0.5 MG Tab PO SCH ×3 (10:13→21:15)
[2021-04-17] MEDS: Lactobacillus Rhamnosus GG (Probiotic) Cap PO SCH (10:13)
[2021-04-17] MEDS: hydrOXYzine HCl 25 MG Tab PO PRN ×2 (10:14→16:59)
[2021-04-17] MEDS: Furosemide 20 MG Tab PO SCH ×2 (10:14→14:46)
[2021-04-17] MEDS: Docusate Sodium 100 MG Cap PO SCH (10:14)
[2021-04-17] MEDS: Potassium Chloride 20 MEQ Tab.ER PO SCH ×2 (10:14→21:16)
[2021-04-17] MEDS: LORazepam 0.5 MG Tab PO PRN ×2 (10:14→21:17)
[2021-04-18] MEDS: Pantoprazole 40 MG Tab.CR PO SCH ×3 (06:07→18:01)
[2021-04-18] MEDS: DAPTOmycin 500 MG Vial IV SCH (09:29)
[2021-04-18] MEDS: Sodium Chloride 0.9% 100 ML IV SCH (09:30)
[2021-04-18] MEDS: Cefepime 2 GM in Sodium Chloride 0.9% 50 ML IV SCH ×2 (09:30→21:42)
[2021-04-18] MEDS: Lactobacillus Rhamnosus GG (Probiotic) Cap PO SCH (09:30)
[2021-04-18] MEDS: Sertraline 50 MG Tab PO SCH (09:31)
[2021-04-18] MEDS: Pramipexole 0.5 MG Tab PO SCH ×3 (09:31→21:42)
[2021-04-18] MEDS: Cholecalciferol (Vitamin D3) 25 MCG Tab PO SCH (09:31)
[2021-04-18] MEDS: hydrOXYzine HCl 25 MG Tab PO PRN ×2 (09:31→16:08)
[2021-04-18] MEDS: Zinc (Zinc Gluconate) 50 MG Tab PO SCH (09:32)
[2021-04-18] MEDS: Furosemide 20 MG Tab PO SCH ×2 (09:32→14:51)
[2021-04-18] MEDS: oxyCODONE 5 MG Tab PO PRN ×2 (09:32→21:43)
[2021-04-18] MEDS: LORazepam 0.5 MG Tab PO PRN ×2 (09:32→21:42)
[2021-04-18] MEDS: Potassium Chloride 20 MEQ Tab.ER PO SCH ×2 (09:32→21:42)
[2021-04-18] MEDS: Docusate Sodium 100 MG Cap PO SCH (09:32)
[2021-04-19] MEDS: Pantoprazole 40 MG Tab.CR PO SCH ×3 (06:00→16:33)
[2021-04-19] MEDS: DAPTOmycin 500 MG Vial IV SCH (09:53)
[2021-04-19] MEDS: Sodium Chloride 0.9% 100 ML IV SCH (09:55)
[2021-04-19] MEDS: Cefepime 2 GM in Sodium Chloride 0.9% 50 ML IV SCH ×2 (09:56→21:26)
[2021-04-19] MEDS: Lactobacillus Rhamnosus GG (Probiotic) Cap PO SCH (10:00)
[2021-04-19] MEDS: LORazepam 0.5 MG Tab PO PRN ×2 (10:00→21:45)
[2021-04-19] MEDS: Cholecalciferol (Vitamin D3) 25 MCG Tab PO SCH (10:00)
[2021-04-19] MEDS: Zinc (Zinc Gluconate) 50 MG Tab PO SCH (10:01)
[2021-04-19] MEDS: Pramipexole 0.5 MG Tab PO SCH ×3 (10:01→21:26)
[2021-04-19] MEDS: oxyCODONE 5 MG Tab PO PRN ×2 (10:01→21:44)
[2021-04-19] MEDS: Potassium Chloride 20 MEQ Tab.ER PO SCH ×2 (10:01→21:27)
[2021-04-19] MEDS: Docusate Sodium 100 MG Cap PO SCH (10:02)
[2021-04-19] MEDS: Furosemide 20 MG Tab PO SCH ×2 (10:02→16:33)
[2021-04-19] MEDS: hydrOXYzine HCl 25 MG Tab PO PRN ×2 (10:02→16:34)
[2021-04-19] MEDS: Sertraline 50 MG Tab PO SCH (10:03)
[2021-04-20] MEDS: Pantoprazole 40 MG Tab.CR PO SCH ×3 (06:00→16:39)
[2021-04-20] MEDS: DAPTOmycin 500 MG Vial IV SCH ×2 (06:41→08:13)
[2021-04-20] MEDS: Cefepime 2 GM in Sodium Chloride 0.9% 50 ML IV SCH ×3 (06:42→20:34)
[2021-04-20] MEDS: Sodium Chloride 0.9% 10 ML Syringe IV PRN (08:12)
[2021-04-20] MEDS: Docusate Sodium 100 MG Cap PO SCH (08:13)
[2021-04-20] MEDS: Potassium Chloride 20 MEQ Tab.ER PO SCH ×3 (08:13→20:35)
[2021-04-20] MEDS: Furosemide 20 MG Tab PO SCH ×2 (08:14→16:39)
[2021-04-20] MEDS: Lactobacillus Rhamnosus GG (Probiotic) Cap PO SCH (08:15)
[2021-04-20] MEDS: oxyCODONE 5 MG Tab PO PRN ×2 (08:15→20:35)
[2021-04-20] MEDS: hydrOXYzine HCl 25 MG Tab PO PRN ×2 (08:15→16:38)
[2021-04-20] MEDS: Pramipexole 0.5 MG Tab PO SCH ×3 (08:15→20:35)
[2021-04-20] MEDS: LORazepam 0.5 MG Tab PO PRN ×2 (08:15→20:35)
[2021-04-20] MEDS: Cholecalciferol (Vitamin D3) 25 MCG Tab PO SCH (08:16)
[2021-04-20] MEDS: Zinc (Zinc Gluconate) 50 MG Tab PO SCH (08:16)
[2021-04-20] MEDS: Sertraline 50 MG Tab PO SCH (08:16)
[2021-04-20] MEDS: Sodium Chloride 0.9% 100 ML IV SCH (20:35)
[2021-04-21] MEDS: Pantoprazole 40 MG Tab.CR PO SCH ×2 (07:38→17:49)
[2021-04-21] MEDS: Sodium Chloride 0.9% 10 ML Syringe IV PRN ×3 (09:28→10:13)
[2021-04-21] MEDS: Cefepime 2 GM in Sodium Chloride 0.9% 50 ML IV SCH ×2 (09:28→21:02)
[2021-04-21] MEDS: Lactobacillus Rhamnosus GG (Probiotic) Cap PO SCH (09:28)
[2021-04-21] MEDS: Pramipexole 0.5 MG Tab PO SCH ×3 (09:29→21:02)
[2021-04-21] MEDS: Furosemide 20 MG Tab PO SCH ×2 (09:29→14:24)
[2021-04-21] MEDS: Cholecalciferol (Vitamin D3) 25 MCG Tab PO SCH (09:29)
[2021-04-21] MEDS: Potassium Chloride 20 MEQ Tab.ER PO SCH ×2 (09:29→21:02)
[2021-04-21] MEDS: Sertraline 50 MG Tab PO SCH (09:29)
[2021-04-21] MEDS: Zinc (Zinc Gluconate) 50 MG Tab PO SCH (09:29)
[2021-04-21] MEDS: Docusate Sodium 100 MG Cap PO SCH (09:29)
[2021-04-21] MEDS: LORazepam 0.5 MG Tab PO PRN ×2 (09:35→21:10)
[2021-04-21] MEDS: oxyCODONE 5 MG Tab PO PRN ×2 (09:35→21:11)
[2021-04-21] MEDS: DAPTOmycin 500 MG Vial IV SCH (10:11)
[2021-04-22] MEDS: Pantoprazole 40 MG Tab.CR PO SCH ×2 (07:30→17:47)
[2021-04-22] MEDS: Cholecalciferol (Vitamin D3) 25 MCG Tab PO SCH (08:59)
[2021-04-22] MEDS: Pramipexole 0.5 MG Tab PO SCH ×3 (08:59→20:50)
[2021-04-22] MEDS: Docusate Sodium 100 MG Cap PO SCH (08:59)
[2021-04-22] MEDS: Furosemide 20 MG Tab PO SCH ×2 (08:59→14:28)
[2021-04-22] MEDS: Zinc (Zinc Gluconate) 50 MG Tab PO SCH (09:00)
[2021-04-22] MEDS: Lactobacillus Rhamnosus GG (Probiotic) Cap PO SCH (09:00)
[2021-04-22] MEDS: Potassium Chloride 20 MEQ Tab.ER PO SCH ×2 (09:00→20:50)
[2021-04-22] MEDS: Sertraline 50 MG Tab PO SCH (09:00)
[2021-04-22] MEDS: DAPTOmycin 500 MG Vial IV SCH (09:02)
[2021-04-22] MEDS: Cefepime 2 GM in Sodium Chloride 0.9% 50 ML IV SCH ×2 (09:08→20:53)
[2021-04-22] MEDS: hydrOXYzine HCl 25 MG Tab PO PRN (09:20)
[2021-04-22] MEDS: oxyCODONE 5 MG Tab PO PRN ×2 (09:20→20:51)
[2021-04-22] MEDS: LORazepam 0.5 MG Tab PO PRN ×2 (09:21→20:50)
[2021-04-22] MEDS: Sodium Chloride 0.9% 100 ML IV SCH (09:22)
[2021-04-23] MEDS: Pantoprazole 40 MG Tab.CR PO SCH ×2 (07:30→17:11)
[2021-04-23] MEDS: LORazepam 0.5 MG Tab PO PRN ×2 (09:24→21:02)
[2021-04-23] MEDS: Lactobacillus Rhamnosus GG (Probiotic) Cap PO SCH (09:24)
[2021-04-23] MEDS: oxyCODONE 5 MG Tab PO PRN ×2 (09:24→21:01)
[2021-04-23] MEDS: Pramipexole 0.5 MG Tab PO SCH ×3 (09:27→20:56)
[2021-04-23] MEDS: Cholecalciferol (Vitamin D3) 25 MCG Tab PO SCH (09:27)
[2021-04-23] MEDS: Potassium Chloride 20 MEQ Tab.ER PO SCH ×2 (09:27→20:56)
[2021-04-23] MEDS: Docusate Sodium 100 MG Cap PO SCH (09:27)
[2021-04-23] MEDS: Sertraline 50 MG Tab PO SCH (09:27)
[2021-04-23] MEDS: Furosemide 20 MG Tab PO SCH ×2 (09:27→14:34)
[2021-04-23] MEDS: DAPTOmycin 500 MG Vial IV SCH (09:28)
[2021-04-23] MEDS: Zinc (Zinc Gluconate) 50 MG Tab PO SCH (09:28)
[2021-04-23] MEDS: Cefepime 2 GM in Sodium Chloride 0.9% 50 ML IV SCH ×2 (09:33→20:54)
[2021-04-23] MEDS: hydrOXYzine HCl 25 MG Tab PO PRN (21:02)
[2021-04-24] MEDS: Pantoprazole 40 MG Tab.CR PO SCH ×2 (07:36→17:04)
[2021-04-24] MEDS: Zinc (Zinc Gluconate) 50 MG Tab PO SCH (09:25)
[2021-04-24] MEDS: Sertraline 50 MG Tab PO SCH (09:25)
[2021-04-24] MEDS: Pramipexole 0.5 MG Tab PO SCH ×3 (09:26→21:39)
[2021-04-24] MEDS: Potassium Chloride 20 MEQ Tab.ER PO SCH ×2 (09:26→21:39)
[2021-04-24] MEDS: Docusate Sodium 100 MG Cap PO SCH (09:27)
[2021-04-24] MEDS: Furosemide 20 MG Tab PO SCH ×2 (09:27→14:01)
[2021-04-24] MEDS: Cholecalciferol (Vitamin D3) 25 MCG Tab PO SCH (09:27)
[2021-04-24] MEDS: Cefepime 2 GM in Sodium Chloride 0.9% 50 ML IV SCH ×2 (09:30→21:37)
[2021-04-24] MEDS: Sodium Chloride 0.9% 10 ML Syringe IV PRN ×2 (09:30→10:52)
[2021-04-24] MEDS: hydrOXYzine HCl 25 MG Tab PO PRN ×2 (09:36→21:39)
[2021-04-24] MEDS: LORazepam 0.5 MG Tab PO PRN ×2 (09:36→21:39)
[2021-04-24] MEDS: oxyCODONE 5 MG Tab PO PRN ×2 (09:37→21:39)
[2021-04-24] MEDS: Lactobacillus Rhamnosus GG (Probiotic) Cap PO SCH (09:38)
[2021-04-24] MEDS: DAPTOmycin 500 MG Vial IV SCH (10:50)
[2021-04-24] MEDS: Sodium Chloride 0.9% 100 ML IV SCH (21:37)
[2021-04-25] MEDS: Pantoprazole 40 MG Tab.CR PO SCH ×2 (06:31→16:36)
[2021-04-25] MEDS: Sertraline 50 MG Tab PO SCH (08:35)
[2021-04-25] MEDS: hydrOXYzine HCl 25 MG Tab PO PRN ×2 (08:35→20:13)
[2021-04-25] MEDS: Furosemide 20 MG Tab PO SCH ×2 (08:35→14:15)
[2021-04-25] MEDS: Docusate Sodium 100 MG Cap PO SCH (08:35)
[2021-04-25] MEDS: Pramipexole 0.5 MG Tab PO SCH ×3 (08:35→20:13)
[2021-04-25] MEDS: oxyCODONE 5 MG Tab PO PRN ×2 (08:36→20:10)
[2021-04-25] MEDS: Potassium Chloride 20 MEQ Tab.ER PO SCH ×2 (08:36→20:13)
[2021-04-25] MEDS: Zinc (Zinc Gluconate) 50 MG Tab PO SCH (08:36)
[2021-04-25] MEDS: LORazepam 0.5 MG Tab PO PRN ×2 (08:37→20:13)
[2021-04-25] MEDS: Cholecalciferol (Vitamin D3) 25 MCG Tab PO SCH (08:37)
[2021-04-25] MEDS: Lactobacillus Rhamnosus GG (Probiotic) Cap PO SCH (08:38)
[2021-04-25] MEDS: Sodium Chloride 0.9% 100 ML IV SCH (08:42)
[2021-04-25] MEDS: Cefepime 2 GM in Sodium Chloride 0.9% 50 ML IV SCH ×2 (08:52→20:12)
[2021-04-25] MEDS: DAPTOmycin 500 MG Vial IV SCH (10:40)
[2021-04-25] MEDS: Prochlorperazine 5 MG Tab PO PRN (20:13)
[2021-04-26] MEDS: Pantoprazole 40 MG Tab.CR PO SCH ×2 (06:30→17:26)
[2021-04-26] MEDS: Cholecalciferol (Vitamin D3) 25 MCG Tab PO SCH (08:47)
[2021-04-26] MEDS: DAPTOmycin 500 MG Vial IV SCH (08:48)
[2021-04-26] MEDS: Cefepime 2 GM in Sodium Chloride 0.9% 50 ML IV SCH ×2 (08:52→20:50)
[2021-04-26] MEDS: oxyCODONE 5 MG Tab PO PRN ×2 (08:56→20:49)
[2021-04-26] MEDS: Potassium Chloride 20 MEQ Tab.ER PO SCH ×2 (08:56→20:48)
[2021-04-26] MEDS: Pramipexole 0.5 MG Tab PO SCH ×3 (08:56→20:49)
[2021-04-26] MEDS: Zinc (Zinc Gluconate) 50 MG Tab PO SCH (08:57)
[2021-04-26] MEDS: Sertraline 50 MG Tab PO SCH (08:57)
[2021-04-26] MEDS: Furosemide 20 MG Tab PO SCH ×2 (08:57→14:10)
[2021-04-26] MEDS: LORazepam 0.5 MG Tab PO PRN ×2 (08:57→20:49)
[2021-04-26] MEDS: Docusate Sodium 100 MG Cap PO SCH (08:58)
[2021-04-26] MEDS: Sodium Chloride 0.9% 100 ML IV SCH (09:04)
[2021-04-26] MEDS: hydrOXYzine HCl 25 MG Tab PO PRN (20:49)
[2021-04-27] MEDS: Pantoprazole 40 MG Tab.CR PO SCH ×2 (06:31→17:31)
[2021-04-27] MEDS: Cefepime 2 GM in Sodium Chloride 0.9% 50 ML IV SCH ×2 (09:23→20:56)
[2021-04-27] MEDS: DAPTOmycin 500 MG Vial IV SCH (09:26)
[2021-04-27] MEDS: Cholecalciferol (Vitamin D3) 25 MCG Tab PO SCH (09:29)
[2021-04-27] MEDS: Pramipexole 0.5 MG Tab PO SCH ×3 (09:29→20:50)
[2021-04-27] MEDS: Sertraline 50 MG Tab PO SCH (09:29)
[2021-04-27] MEDS: Furosemide 20 MG Tab PO SCH ×2 (09:30→14:12)
[2021-04-27] MEDS: Zinc (Zinc Gluconate) 50 MG Tab PO SCH (09:30)
[2021-04-27] MEDS: Potassium Chloride 20 MEQ Tab.ER PO SCH ×2 (09:30→20:51)
[2021-04-27] MEDS: Docusate Sodium 100 MG Cap PO SCH (09:30)
[2021-04-27] MEDS: oxyCODONE 5 MG Tab PO PRN ×2 (09:31→21:00)
[2021-04-27] MEDS: LORazepam 0.5 MG Tab PO PRN ×2 (09:31→20:59)
[2021-04-27] MEDS: Sodium Chloride 0.9% 100 ML IV SCH (20:56)
[2021-04-27] MEDS: hydrOXYzine HCl 25 MG Tab PO PRN (20:59)
[2021-04-28] MEDS: Pantoprazole 40 MG Tab.CR PO SCH ×3 (05:51→17:24)
[2021-04-28] MEDS: DAPTOmycin 500 MG Vial IV SCH (08:20)
[2021-04-28] MEDS: Sodium Chloride 0.9% 10 ML Syringe IV PRN ×3 (08:20→09:31)
[2021-04-28] MEDS: Cefepime 2 GM in Sodium Chloride 0.9% 50 ML IV SCH ×2 (08:23→21:12)
[2021-04-28] MEDS: Docusate Sodium 100 MG Cap PO SCH (08:26)
[2021-04-28] MEDS: Sertraline 50 MG Tab PO SCH (08:26)
[2021-04-28] MEDS: Pramipexole 0.5 MG Tab PO SCH ×3 (08:26→21:13)
[2021-04-28] MEDS: Potassium Chloride 20 MEQ Tab.ER PO SCH ×2 (08:26→21:13)
[2021-04-28] MEDS: Zinc (Zinc Gluconate) 50 MG Tab PO SCH (08:26)
[2021-04-28] MEDS: Cholecalciferol (Vitamin D3) 25 MCG Tab PO SCH (08:26)
[2021-04-28] MEDS: Furosemide 20 MG Tab PO SCH ×2 (08:26→14:25)
[2021-04-28] MEDS: LORazepam 0.5 MG Tab PO PRN ×2 (08:35→21:13)
[2021-04-28] MEDS: oxyCODONE 5 MG Tab PO PRN ×2 (08:36→21:13)
[2021-04-28] MEDS: hydrOXYzine HCl 25 MG Tab PO PRN (21:13)
[2021-04-29] MEDS: Pantoprazole 40 MG Tab.CR PO SCH ×3 (05:36→17:38)
[2021-04-29] MEDS: Sodium Chloride 0.9% 10 ML Syringe IV PRN ×3 (08:16→09:23)
[2021-04-29] MEDS: DAPTOmycin 500 MG Vial IV SCH (08:17)
[2021-04-29] MEDS: Zinc (Zinc Gluconate) 50 MG Tab PO SCH (08:21)
[2021-04-29] MEDS: Cholecalciferol (Vitamin D3) 25 MCG Tab PO SCH (08:21)
[2021-04-29] MEDS: LORazepam 0.5 MG Tab PO PRN ×2 (08:22→20:51)
[2021-04-29] MEDS: Docusate Sodium 100 MG Cap PO SCH (08:22)
[2021-04-29] MEDS: Potassium Chloride 20 MEQ Tab.ER PO SCH ×2 (08:22→20:51)
[2021-04-29] MEDS: Furosemide 20 MG Tab PO SCH ×2 (08:22→14:38)
[2021-04-29] MEDS: oxyCODONE 5 MG Tab PO PRN ×2 (08:22→20:51)
[2021-04-29] MEDS: Pramipexole 0.5 MG Tab PO SCH ×3 (08:22→20:51)
[2021-04-29] MEDS: Sertraline 50 MG Tab PO SCH (08:22)
[2021-04-29] MEDS: Cefepime 2 GM in Sodium Chloride 0.9% 50 ML IV SCH ×2 (08:30→20:50)
[2021-04-29] MEDS: Sodium Chloride 0.9% 100 ML IV SCH (08:30)
--- NOTE | 2021-04-29 12:00 | PCM.PN ---
- General Info Date of Service: 04/29/21 Admission Dx/Problem (Free Text): Admission Diagnosis/Problem Admission Diagnosis/Problem Osteomyelitis - Review of Systems Systems Review Comment:: Nguyen is seen today on swingbed rounds. She has no concerns. She is bored. She walks around a lot. Appetite has been OK. Pain controlled with meds. No issues with her wound vac. - Patient Data Vitals - Most Recent: Last Vital Signs Temp 98.4 F 04/29/21 08:37 Pulse 66 04/29/21 08:37 Resp 20 04/29/21 08:37 BP 115/63 04/29/21 08:37 Pulse Ox 97 04/29/21 08:37 Weight - Most Recent: 120 lb 6 oz I&O - Last 24 Hours: Intake & Output 04/28/21 04/29/21 04/29/21 22:59 06:59 14:59 Intake Total 825 300 Balance 825 300 Med Orders - Current: Current Medications Acetaminophen (Acetaminophen 500 Mg Tab) 500 mg PO Q4H PRN PRN Reason: Pain Last Admin: 04/14/21 20:29 Dose: 500 mg Documented by: Albuterol (Albuterol 8 Gm Inhaler) 0 gm INH Q4H PRN PRN Reason: Shortness of Breath Albuterol/Ipratropium (Albuterol/Ipratropium 3.0-0.5 Mg/3 Ml Neb Soln) 3 ml INH Q4H PRN PRN Reason: Shortness of Breath Cholecalciferol (Cholecalciferol (Vitamin D3) 25 Mcg Tab) 50 mcg PO DAILY [facility] Last Admin: 04/29/21 08:21 Dose: 50 mcg Documented by: Cyclobenzaprine HCl (Cyclobenzaprine 10 Mg Tab) 10 mg PO TID PRN PRN Reason: muscle spasms Last Admin: 04/14/21 06:00 Dose: 10 mg Documented by: Daptomycin (Daptomycin 500 Mg Vial) 350 mg IV DAILY [facility] Stop: 05/18/21 09:01 Last Admin: 04/29/21 08:17 Dose: 350 mg Documented by: Diclofenac Sodium (Diclofenac Sodium 1% Gel 100 Gm Tube) 4 gm TOP TID PRN PRN Reason: Pain Docusate Sodium (Docusate Sodium 100 Mg Cap) 100 mg PO DAILY [facility] Last Admin: 04/29/21 08:22 Dose: 100 mg Documented by: Fluticasone Propionate (Fluticasone Propionate Nasal [place] 16 Gm Bottle) 0 gm CHRISTIANA DAILY PRN PRN Reason: Allergies Furosemide (Furosemide 20 Mg Tab) 20 mg PO BID@0900,1500 [facility] Last Admin: 04/29/21 08:22 Dose: 20 mg Documented by: Heparin Sodium (Porcine) (Heparin Sodium 100 Units/Ml 5 Ml Syringe) 300 units IVPUSH BID [facility] Last Admin: 04/29/21 09:24 Dose: 300 units Documented by: Hydroxyzine HCl (Hydroxyzine Hcl 25 Mg Tab) 25 mg PO Q6H PRN PRN Reason: Itching Last Admin: 04/28/21 21:13 Dose: 25 mg Documented by: Cefepime HCl 2 gm/ Sodium (Chloride) 50 mls @ 100 mls/hr IV Q12H [facility] Stop: 05/18/21 21:01 Last Admin: 04/29/21 08:30 Dose: 100 mls/hr Documented by: Sodium Chloride (Normal Saline) 100 mls @ 125 mls/hr IV ASDIRECTED [facility] Last Admin: 04/29/21 08:30 Dose: 125 mls/hr Documented by: Lidocaine (Lidocaine 5% 700 Mg Patch) 700 mg TOP DAILY PRN PRN Reason: Pain Lorazepam (Lorazepam 0.5 Mg Tab) 1 mg PO TID PRN PRN Reason: Anxiety Last Admin: 04/29/21 08:22 Dose: 1 mg Documented by: Miscellaneous Information (Remove Patch) 1 ea TRDERM BEDTIME [facility] Last Admin: 04/28/21 21:23 Dose: Not Given Documented by: Tacrolimus 0.1% (OintmentOwn Med) 1 each TOP BID PRN PRN Reason: APPLY Nystatin (Nystatin Topical Powder 15 Gm Bottle) 0 gm TOP BID PRN PRN Reason: Rash Oxycodone HCl (Oxycodone 5 Mg Tab) 10 mg PO Q6H PRN PRN Reason: Pain Last Admin: 04/29/21 08:22 Dose: 10 mg Documented by: Pantoprazole Sodium (Pantoprazole 40 Mg Tab.Cr) 40 mg PO BIDAC [facility] Last Admin: 04/29/21 06:29 Dose: Not Given Documented by: Potassium Chloride (Potassium Chloride 20 Meq Tab.Er) 20 meq PO BID [facility] Last Admin: 04/29/21 08:22 Dose: 20 meq Documented by: Pramipexole Dihydrochloride (Pramipexole 0.5 Mg Tab) 1 mg PO TID [facility] Last Admin: 04/29/21 08:22 Dose: 1 mg Documented by: Prochlorperazine Maleate (Prochlorperazine 5 Mg Tab) 10 mg PO Q6H PRN PRN Reason: Vomiting Last Admin: 04/25/21 20:13 Dose: 10 mg Documented by: Sertraline HCl (Sertraline 50 Mg Tab) 50 mg PO DAILY [facility] Last Admin: 04/29/21 08:22 Dose: 50 mg Documented by: Sodium Chloride (Sodium Chloride 0.9% 10 Ml Syringe) 10 ml IV ASDIRECTED PRN PRN Reason: Keep Vein Open Last Admin: 04/29/21 09:23 Dose: 10 ml Documented by: Zinc Gluconate (Zinc (Zinc Gluconate) 50 Mg Tab) 50 mg PO DAILY [facility] Last Admin: 04/29/21 08:21 Dose: 50 mg Documented by: Discontinued Medications Diclofenac Sodium (Diclofenac Sodium 1% Gel 100 Gm Tube) gm TOP ASDIRECTED PRN PRN Reason: Pain Diclofenac Sodium (Diclofenac Sodium 1% Gel 100 Gm Tube) 100 gm TOP ASDIRECTED PRN PRN Reason: Pain Furosemide (Furosemide 20 Mg Tab) 20 mg PO BID [facility] Lactobacillus Rhamnosus (Lactobacillus Rhamnosus Gg (Probiotic) Cap) 2 cap PO DAILY [facility] Last Admin: 04/25/21 08:38 Dose: Not Given Documented by: Non-Formulary Medication (Cefepime) 2,000 mg IV Q12HR [facility] Non-Formulary Medication (Clobetasol Propionate [Clobetasol Propionate]) 1 applic TOP DAILY [facility] Last Admin: 04/13/21 15:29 Dose: Not Given Documented by: Non-Formulary Medication (Fluocinonide [Lidex 0.05% Top Soln]) 1 applic TOP DAILY [facility] Last Admin: 04/13/21 15:29 Dose: Not Given Documented by: Non-Formulary Medication (L.Acidoph,Paracasei, B.Lactis [Probiotic]) 2 cap PO DAILY [facility] Last Admin: 04/13/21 15:29 Dose: Not Given Documented by: Non-Formulary Medication (Lidocaine 4% [Aspercreme 4%]) 1 each TP ASDIRECTED PRN PRN Reason: Pain Tacrolimus 0.1% (OintmentOwn Med) 1 each TOP BID [facility] Last Admin: 04/16/21 09:06 Dose: Not Given Documented by: Non-Formulary Medication (Non-Formulary Medication 1 Each) 1 each TOP BID PRN PRN Reason: irritation Nystatin (Nystatin Topical Powder 15 Gm Bottle) 0 gm TOP BID [facility] Last Admin: 04/16/21 09:06 Dose: Not Given Documented by: - Exam General: Alert, Oriented, Cooperative, No Acute Distress Lungs: Clear to Auscultation, Normal Respiratory Effort Cardiovascular: Regular Rate, Regular Rhythm, No Murmurs - Patient Data Result Diagrams: 04/24/21 07:00 04/24/21 07:00 Sepsis Event Note - Evaluation Sepsis Screening Result: No Definite Risk - Focused Exam Vital Signs: Vital Signs Temp Pulse Resp BP Pulse Ox 04/29/21 08:37 98.4 F 66 20 115/63 97 - Problem List Review Problem List Initiated/Reviewed/Updated: Yes - My Orders Last 24 Hours: My Active Orders 05/01/21 05:11 ALANINE AMINOTRANSFERASE,ALT [CHEM] Q7D CBC WITH AUTO DIFF [HEME] Q7D CREATINE KINASE,CK [CHEM] Q7D CREATININE W/GFR [CHEM] Q7D 05/08/21 05:11 ALANINE AMINOTRANSFERASE,ALT [CHEM] Q7D CBC WITH AUTO DIFF [HEME] Q7D CREATINE KINASE,CK [CHEM] Q7D CREATININE W/GFR [CHEM] Q7D 05/15/21 05:11 ALANINE AMINOTRANSFERASE,ALT [CHEM] Q7D CBC WITH AUTO DIFF [HEME] Q7D CREATINE KINASE,CK [CHEM] Q7D CREATININE W/GFR [CHEM] Q7D - Plan Plan:: Admission Diagnosis: Scalp wound with osteomyelitis of the calvarium s/p excisional debridement and wound vac placement 04/06/2021 - Cefepime 2 grams IV q 8 hours - Daptomycin 350 mg IV daily - Wound vac changes q 3 days Secondary Diagnoses: Hx hypokalemia - KCl 40 mEq PO daily COPD - Albuterol nebs q 4 hours PRN Anxiety - Sertraline 50 mg PO daily - Hydroxyzine 25 mg PO BID PRN - Lorazepam 1 mg PO TID PRN Hyperlipidemia - Rosuvastatin 10 mg PO qhs RLS - Pramipexole 1 mg PO TID Acid Reflux - Omeprazole 20 mg PO BID Hx peripheral edema - Furosemide 20 mg PO BID Chronic Pain - Oxycodone 5 mg PO q 4 hours PRN Pain Multiple other vitamins and supplements the patient is on, see med list. CODE STATUS: Full Code
[2021-04-30] MEDS: Pantoprazole 40 MG Tab.CR PO SCH ×3 (06:05→17:33)
[2021-04-30] MEDS: Sodium Chloride 0.9% 10 ML Syringe IV PRN ×2 (08:09→09:19)
[2021-04-30] MEDS: DAPTOmycin 500 MG Vial IV SCH (08:09)
[2021-04-30] MEDS: Sertraline 50 MG Tab PO SCH (08:13)
[2021-04-30] MEDS: oxyCODONE 5 MG Tab PO PRN ×2 (08:13→20:08)
[2021-04-30] MEDS: Pramipexole 0.5 MG Tab PO SCH ×3 (08:13→20:00)
[2021-04-30] MEDS: Cholecalciferol (Vitamin D3) 25 MCG Tab PO SCH (08:13)
[2021-04-30] MEDS: Docusate Sodium 100 MG Cap PO SCH (08:13)
[2021-04-30] MEDS: Potassium Chloride 20 MEQ Tab.ER PO SCH ×2 (08:13→20:00)
[2021-04-30] MEDS: Zinc (Zinc Gluconate) 50 MG Tab PO SCH (08:13)
[2021-04-30] MEDS: LORazepam 0.5 MG Tab PO PRN ×2 (08:13→20:09)
[2021-04-30] MEDS: Furosemide 20 MG Tab PO SCH ×2 (08:13→14:43)
[2021-04-30] MEDS: Cefepime 2 GM in Sodium Chloride 0.9% 50 ML IV SCH ×2 (08:16→20:01)
[2021-04-30] MEDS: Sodium Chloride 0.9% 100 ML IV SCH (08:22)
[2021-05-01] MEDS: Pantoprazole 40 MG Tab.CR PO SCH ×3 (05:53→18:14)
[2021-05-01] MEDS: Cholecalciferol (Vitamin D3) 25 MCG Tab PO SCH (08:17)
[2021-05-01] MEDS: Docusate Sodium 100 MG Cap PO SCH (08:17)
[2021-05-01] MEDS: Potassium Chloride 20 MEQ Tab.ER PO SCH ×2 (08:17→21:32)
[2021-05-01] MEDS: Pramipexole 0.5 MG Tab PO SCH ×3 (08:18→21:32)
[2021-05-01] MEDS: Zinc (Zinc Gluconate) 50 MG Tab PO SCH (08:18)
[2021-05-01] MEDS: Sertraline 50 MG Tab PO SCH (08:19)
[2021-05-01] MEDS: DAPTOmycin 500 MG Vial IV SCH (08:19)
[2021-05-01] MEDS: Furosemide 20 MG Tab PO SCH ×2 (08:19→14:05)
[2021-05-01] MEDS: Cefepime 2 GM in Sodium Chloride 0.9% 50 ML IV SCH ×2 (08:35→21:30)
[2021-05-01] MEDS: oxyCODONE 5 MG Tab PO PRN ×2 (08:42→21:31)
[2021-05-01] MEDS: LORazepam 0.5 MG Tab PO PRN ×2 (08:43→21:32)
[2021-05-01] MEDS: Prochlorperazine 5 MG Tab PO PRN (18:36)
[2021-05-02] MEDS: Pantoprazole 40 MG Tab.CR PO SCH ×2 (08:08→17:22)
[2021-05-02] MEDS: Potassium Chloride 20 MEQ Tab.ER PO SCH ×2 (08:09→20:59)
[2021-05-02] MEDS: Docusate Sodium 100 MG Cap PO SCH (08:09)
[2021-05-02] MEDS: Zinc (Zinc Gluconate) 50 MG Tab PO SCH (08:09)
[2021-05-02] MEDS: Sertraline 50 MG Tab PO SCH (08:09)
[2021-05-02] MEDS: Cholecalciferol (Vitamin D3) 25 MCG Tab PO SCH (08:09)
[2021-05-02] MEDS: oxyCODONE 5 MG Tab PO PRN ×2 (08:09→20:59)
[2021-05-02] MEDS: LORazepam 0.5 MG Tab PO PRN ×2 (08:10→20:59)
[2021-05-02] MEDS: Pramipexole 0.5 MG Tab PO SCH ×3 (08:10→20:58)
[2021-05-02] MEDS: Furosemide 20 MG Tab PO SCH ×2 (08:10→14:25)
[2021-05-02] MEDS: DAPTOmycin 500 MG Vial IV SCH (08:24)
[2021-05-02] MEDS: Cefepime 2 GM in Sodium Chloride 0.9% 50 ML IV SCH ×2 (08:26→20:58)
--- NOTE | 2021-05-02 09:39 | PCM.SN.2 ---
- Free Text/Narrative Note: Nguyen requested to see me today. She thinks she has "pus pockets" under her dressing for her wound vac. "I can see them and then push on them and greenish liquid comes out that I wipe on a napkin. I do not see any purulent areas under her dressing but her wound vac is due to be changed today and I will have the nurse culture anything that appears purulent, if any.
[2021-05-02] MEDS: Prochlorperazine 5 MG Tab PO PRN (19:17)
[2021-05-03] MEDS: Pantoprazole 40 MG Tab.CR PO SCH ×3 (06:08→17:28)
[2021-05-03] MEDS: oxyCODONE 5 MG Tab PO PRN ×2 (08:11→21:18)
[2021-05-03] MEDS: Pramipexole 0.5 MG Tab PO SCH ×3 (08:12→21:19)
[2021-05-03] MEDS: LORazepam 0.5 MG Tab PO PRN ×2 (08:12→21:20)
[2021-05-03] MEDS: Cholecalciferol (Vitamin D3) 25 MCG Tab PO SCH (08:12)
[2021-05-03] MEDS: Docusate Sodium 100 MG Cap PO SCH (08:13)
[2021-05-03] MEDS: Zinc (Zinc Gluconate) 50 MG Tab PO SCH (08:13)
[2021-05-03] MEDS: Furosemide 20 MG Tab PO SCH ×2 (08:13→14:18)
[2021-05-03] MEDS: Potassium Chloride 20 MEQ Tab.ER PO SCH ×2 (08:13→21:18)
[2021-05-03] MEDS: Sertraline 50 MG Tab PO SCH (08:13)
[2021-05-03] MEDS: DAPTOmycin 500 MG Vial IV SCH (08:19)
[2021-05-03] MEDS: Cefepime 2 GM in Sodium Chloride 0.9% 50 ML IV SCH ×2 (08:30→21:19)
[2021-05-03] MEDS: Sodium Chloride 0.9% 100 ML IV SCH (21:19)
[2021-05-03] MEDS: hydrOXYzine HCl 25 MG Tab PO PRN (21:19)
[2021-05-04] MEDS: Pantoprazole 40 MG Tab.CR PO SCH ×2 (06:35→17:26)
[2021-05-04] MEDS: Cefepime 2 GM in Sodium Chloride 0.9% 50 ML IV SCH ×3 (07:00→20:54)
[2021-05-04] MEDS: Sertraline 50 MG Tab PO SCH (08:00)
[2021-05-04] MEDS: Pramipexole 0.5 MG Tab PO SCH ×3 (08:00→20:56)
[2021-05-04] MEDS: DAPTOmycin 500 MG Vial IV SCH (08:00)
[2021-05-04] MEDS: Potassium Chloride 20 MEQ Tab.ER PO SCH ×2 (08:01→20:56)
[2021-05-04] MEDS: Zinc (Zinc Gluconate) 50 MG Tab PO SCH (08:01)
[2021-05-04] MEDS: Docusate Sodium 100 MG Cap PO SCH (08:01)
[2021-05-04] MEDS: Cholecalciferol (Vitamin D3) 25 MCG Tab PO SCH (08:01)
[2021-05-04] MEDS: oxyCODONE 5 MG Tab PO PRN ×2 (08:46→20:55)
[2021-05-04] MEDS: LORazepam 0.5 MG Tab PO PRN ×2 (08:46→20:56)
[2021-05-04] MEDS: Furosemide 20 MG Tab PO SCH ×2 (09:19→16:41)
[2021-05-04] MEDS: Sodium Chloride 0.9% 100 ML IV SCH (20:54)
[2021-05-04] MEDS: hydrOXYzine HCl 25 MG Tab PO PRN (20:56)
[2021-05-05] MEDS: Pantoprazole 40 MG Tab.CR PO SCH ×4 (06:15→20:27)
[2021-05-05] MEDS: Zinc (Zinc Gluconate) 50 MG Tab PO SCH (08:27)
[2021-05-05] MEDS: Potassium Chloride 20 MEQ Tab.ER PO SCH ×2 (08:27→20:27)
[2021-05-05] MEDS: oxyCODONE 5 MG Tab PO PRN ×2 (08:27→20:27)
[2021-05-05] MEDS: Pramipexole 0.5 MG Tab PO SCH ×3 (08:27→20:27)
[2021-05-05] MEDS: LORazepam 0.5 MG Tab PO PRN ×2 (08:28→20:27)
[2021-05-05] MEDS: Furosemide 20 MG Tab PO SCH ×2 (08:28→15:18)
[2021-05-05] MEDS: Docusate Sodium 100 MG Cap PO SCH (08:28)
[2021-05-05] MEDS: Sertraline 50 MG Tab PO SCH (08:28)
[2021-05-05] MEDS: Cholecalciferol (Vitamin D3) 25 MCG Tab PO SCH (08:28)
[2021-05-05] MEDS: Cefepime 2 GM in Sodium Chloride 0.9% 50 ML IV SCH ×2 (08:29→20:27)
[2021-05-05] MEDS: DAPTOmycin 500 MG Vial IV SCH (08:30)
[2021-05-05] MEDS: Sodium Chloride 0.9% 10 ML Syringe IV SCH ×2 (10:13→21:37)
[2021-05-05] MEDS: Ceres/Mineral Oil/Petrolatum/Wool Alcohol Cream 57 GM Tube TOP SCH (10:46)
[2021-05-06] MEDS: Pantoprazole 40 MG Tab.CR PO SCH ×2 (06:33→18:18)
[2021-05-06] MEDS: Cefepime 2 GM in Sodium Chloride 0.9% 50 ML IV SCH ×2 (08:32→20:16)
[2021-05-06] MEDS: Potassium Chloride 20 MEQ Tab.ER PO SCH ×2 (08:33→20:17)
[2021-05-06] MEDS: Pramipexole 0.5 MG Tab PO SCH ×3 (08:33→20:17)
[2021-05-06] MEDS: Furosemide 20 MG Tab PO SCH ×2 (08:33→18:17)
[2021-05-06] MEDS: DAPTOmycin 500 MG Vial IV SCH (08:35)
[2021-05-06] MEDS: Sertraline 50 MG Tab PO SCH (08:35)
[2021-05-06] MEDS: Ceres/Mineral Oil/Petrolatum/Wool Alcohol Cream 57 GM Tube TOP SCH (08:39)
[2021-05-06] MEDS: LORazepam 0.5 MG Tab PO PRN ×2 (08:46→20:17)
[2021-05-06] MEDS: oxyCODONE 5 MG Tab PO PRN ×2 (08:46→20:17)
[2021-05-06] MEDS: Sodium Chloride 0.9% 10 ML Syringe IV SCH ×2 (09:23→20:18)
[2021-05-06] MEDS: Sodium Chloride 0.9% 100 ML IV SCH (20:17)
[2021-05-07] MEDS: Pantoprazole 40 MG Tab.CR PO SCH ×3 (05:45→17:28)
[2021-05-07] MEDS: DAPTOmycin 500 MG Vial IV SCH (08:42)
[2021-05-07] MEDS: Sodium Chloride 0.9% 10 ML Syringe IV SCH ×2 (08:43→21:00)
[2021-05-07] MEDS: Sertraline 50 MG Tab PO SCH (08:44)
[2021-05-07] MEDS: Furosemide 20 MG Tab PO SCH ×2 (08:44→14:27)
[2021-05-07] MEDS: Potassium Chloride 20 MEQ Tab.ER PO SCH ×2 (08:44→21:01)
[2021-05-07] MEDS: Pramipexole 0.5 MG Tab PO SCH ×3 (08:44→21:02)
[2021-05-07] MEDS: Ceres/Mineral Oil/Petrolatum/Wool Alcohol Cream 57 GM Tube TOP SCH (08:44)
[2021-05-07] MEDS: Cefepime 2 GM in Sodium Chloride 0.9% 50 ML IV SCH ×2 (08:45→20:58)
[2021-05-07] MEDS: Sodium Chloride 0.9% 100 ML IV SCH (08:46)
[2021-05-07] MEDS: oxyCODONE 5 MG Tab PO PRN ×2 (08:58→21:01)
[2021-05-07] MEDS: LORazepam 0.5 MG Tab PO PRN ×2 (08:58→21:01)
[2021-05-08] MEDS: Pantoprazole 40 MG Tab.CR PO SCH ×2 (06:37→17:30)
[2021-05-08] MEDS: DAPTOmycin 500 MG Vial IV SCH (08:36)
[2021-05-08] MEDS: oxyCODONE 5 MG Tab PO PRN ×2 (08:38→21:11)
[2021-05-08] MEDS: Sertraline 50 MG Tab PO SCH (08:38)
[2021-05-08] MEDS: Potassium Chloride 20 MEQ Tab.ER PO SCH ×2 (08:39→20:11)
[2021-05-08] MEDS: Pramipexole 0.5 MG Tab PO SCH ×3 (08:39→20:11)
[2021-05-08] MEDS: LORazepam 0.5 MG Tab PO PRN ×2 (08:39→21:11)
[2021-05-08] MEDS: Furosemide 20 MG Tab PO SCH ×2 (08:39→14:18)
[2021-05-08] MEDS: Cefepime 2 GM in Sodium Chloride 0.9% 50 ML IV SCH ×2 (08:40→20:12)
[2021-05-08] MEDS: Sodium Chloride 0.9% 10 ML Syringe IV SCH ×2 (08:42→20:11)
[2021-05-08] MEDS: Ceres/Mineral Oil/Petrolatum/Wool Alcohol Cream 57 GM Tube TOP SCH (08:49)
--- NOTE | 2021-05-08 09:15 | PCM.PN ---
- General Info Date of Service: 05/08/21 Admission Dx/Problem (Free Text): Admission Diagnosis/Problem Admission Diagnosis/Problem Osteomyelitis - Review of Systems Systems Review Comment:: Nguyen is seen today on swingbed rounds. She has a wound vac on her head due to infection with destruction down to the calvarium. This note also serves as a pre-op H&P for skin grafting per patient to be done on 05/18 at [facility]. She has no questions or concerns today. She states that since some sort of antimicrobial dressing was removed from her wound that her stomach is feeling 100% better. - Patient Data Vitals - Most Recent: Last Vital Signs Temp 98.0 F 05/08/21 06:49 Pulse 70 05/08/21 06:49 Resp 18 05/08/21 06:49 BP 111/68 05/08/21 06:49 Pulse Ox 94 L 05/08/21 06:49 Weight - Most Recent: 121 lb I&O - Last 24 Hours: Intake & Output 05/07/21 05/08/21 05/08/21 22:59 06:59 14:59 Intake Total 500 450 Balance 500 450 Lab Results Last 24 Hours: Laboratory Results - last 24 hr 05/08/21 05/08/21 Range/Units 07:19 07:19 WBC 5.45 (5.00-10.00) 10^3/uL RBC 3.67 L (3.80-5.50) 10^6/uL Hgb 8.6 L (12.0-16.0) g/dL Hct 27.6 L (37.0-47.0) % MCV 75.2 L (82.0-92.0) fL MCH 23.4 L (27.0-31.0) pg MCHC 31.2 L (32.0-36.0) g/dL RDW 19.5 H (11.5-14.5) % Plt Count 250 (150-400) 10^3/uL MPV 9.7 (7.4-10.4) fL Immature Gran % (Auto) 0.2 (0.0-5.0) % Neut % (Auto) 64.5 (50.0-70.0) % Lymph % (Auto) 21.3 (20.0-40.0) % [place] % (Auto) 9.7 H (2.0-8.0) % Eos % (Auto) 3.7 H (1.0-3.0) % Baso % (Auto) 0.6 (0.0-1.0) % Neut # (Auto) 3.52 (2.50-7.00) 10^3/uL Lymph # (Auto) 1.16 (1.00-4.00) 10^3/uL [place] # (Auto) 0.53 (0.10-0.80) 10^3/uL Eos # (Auto) 0.20 (0.10-0.30) 10^3/uL Baso # (Auto) 0.03 (0.00-0.10) 10^3/uL Immature Gran # (Auto) 0.01 (0.00-0.50) 10^3/uL Creatinine 0.99 (0.51-1.17) mg/dL Est Cr Clr Drug Dosing 42.32 mL/min Estimated GFR (MDRD) 57 mL/min ALT 23 (14-63) U/L Creatine Kinase 237 (26-276) U/L Med Orders - Current: Current Medications Acetaminophen (Acetaminophen 500 Mg Tab) 500 mg PO Q4H PRN PRN Reason: Pain Last Admin: 04/14/21 20:29 Dose: 500 mg Documented by: Albuterol (Albuterol 8 Gm Inhaler) 0 gm INH Q4H PRN PRN Reason: Shortness of Breath Albuterol/Ipratropium (Albuterol/Ipratropium 3.0-0.5 Mg/3 Ml Neb Soln) 3 ml INH Q4H PRN PRN Reason: Shortness of Breath Cyclobenzaprine HCl (Cyclobenzaprine 10 Mg Tab) 10 mg PO TID PRN PRN Reason: muscle spasms Last Admin: 04/14/21 06:00 Dose: 10 mg Documented by: Daptomycin (Daptomycin 500 Mg Vial) 350 mg IV DAILY [facility] Stop: 05/18/21 09:01 Last Admin: 05/08/21 08:36 Dose: 350 mg Documented by: Fluticasone Propionate (Fluticasone Propionate Nasal [place] 16 Gm Bottle) 0 gm CHRISTIANA DAILY PRN PRN Reason: Allergies Furosemide (Furosemide 20 Mg Tab) 20 mg PO BID@0900,1500 [facility] Last Admin: 05/08/21 08:39 Dose: 20 mg Documented by: Cefepime HCl 2 gm/ Sodium (Chloride) 50 mls @ 100 mls/hr IV Q12H [facility] Stop: 05/18/21 21:01 Last Admin: 05/08/21 08:40 Dose: 100 mls/hr Documented by: Sodium Chloride (Normal Saline) 100 mls @ 125 mls/hr IV ASDIRECTED [facility] Last Admin: 05/07/21 08:46 Dose: 125 mls/hr Documented by: Lidocaine (Lidocaine 5% 700 Mg Patch) 700 mg TOP DAILY PRN PRN Reason: Pain Lorazepam (Lorazepam 0.5 Mg Tab) 1 mg PO TID PRN PRN Reason: Anxiety Last Admin: 05/08/21 08:39 Dose: 1 mg Documented by: Miscellaneous Information (Remove Patch) 1 ea TRDERM BEDTIME [facility] Last Admin: 05/07/21 21:02 Dose: Not Given Documented by: Multi-Ingredient Ointment ([place]/Mineral Oil/Petrolatum/Wool Alcohol Cream 57 Gm Tube) 1 gm TOP DAILY [facility] Last Admin: 05/08/21 08:49 Dose: 1 applic Documented by: Oxycodone HCl (Oxycodone 5 Mg Tab) 10 mg PO Q6H PRN PRN Reason: Pain Last Admin: 05/08/21 08:38 Dose: 10 mg Documented by: Pantoprazole Sodium (Pantoprazole 40 Mg Tab.Cr) 40 mg PO BIDAC [facility] Last Admin: 05/08/21 06:37 Dose: 40 mg Documented by: Potassium Chloride (Potassium Chloride 20 Meq Tab.Er) 20 meq PO BID [facility] Last Admin: 05/08/21 08:39 Dose: 20 meq Documented by: Pramipexole Dihydrochloride (Pramipexole 0.5 Mg Tab) 1 mg PO TID [facility] Last Admin: 05/08/21 08:39 Dose: 1 mg Documented by: Prochlorperazine Maleate (Prochlorperazine 5 Mg Tab) 10 mg PO Q6H PRN PRN Reason: Vomiting Last Admin: 05/02/21 19:17 Dose: 10 mg Documented by: Sertraline HCl (Sertraline 50 Mg Tab) 50 mg PO DAILY [facility] Last Admin: 05/08/21 08:38 Dose: 50 mg Documented by: Sodium Chloride (Sodium Chloride 0.9% 10 Ml Syringe) 10 ml IV BID [facility] Last Admin: 05/08/21 08:42 Dose: 10 ml Documented by: Discontinued Medications Cholecalciferol (Cholecalciferol (Vitamin D3) 25 Mcg Tab) 50 mcg PO DAILY [facility] Last Admin: 05/05/21 08:28 Dose: 50 mcg Documented by: Diclofenac Sodium (Diclofenac Sodium 1% Gel 100 Gm Tube) gm TOP ASDIRECTED PRN PRN Reason: Pain Diclofenac Sodium (Diclofenac Sodium 1% Gel 100 Gm Tube) 100 gm TOP ASDIRECTED PRN PRN Reason: Pain Diclofenac Sodium (Diclofenac Sodium 1% Gel 100 Gm Tube) 4 gm TOP TID PRN PRN Reason: Pain Docusate Sodium (Docusate Sodium 100 Mg Cap) 100 mg PO DAILY [facility] Last Admin: 05/05/21 08:28 Dose: 100 mg Documented by: Furosemide (Furosemide 20 Mg Tab) 20 mg PO BID [facility] Heparin Sodium (Porcine) (Heparin Sodium 100 Units/Ml 5 Ml Syringe) 300 units IVPUSH BID [facility] Last Admin: 05/05/21 10:15 Dose: Not Given Documented by: Hydroxyzine HCl (Hydroxyzine Hcl 25 Mg Tab) 25 mg PO Q6H PRN PRN Reason: Itching Last Admin: 05/04/21 20:56 Dose: 25 mg Documented by: Lactobacillus Rhamnosus (Lactobacillus Rhamnosus Gg (Probiotic) Cap) 2 cap PO DAILY [facility] Last Admin: 04/25/21 08:38 Dose: Not Given Documented by: Non-Formulary Medication (Cefepime) 2,000 mg IV Q12HR [facility] Non-Formulary Medication (Clobetasol Propionate [Clobetasol Propionate]) 1 applic TOP DAILY [facility] Last Admin: 04/13/21 15:29 Dose: Not Given Documented by: Non-Formulary Medication (Fluocinonide [Lidex 0.05% Top Soln]) 1 applic TOP DAILY [facility] Last Admin: 04/13/21 15:29 Dose: Not Given Documented by: Non-Formulary Medication (L.Acidoph,Paracasei, B.Lactis [Probiotic]) 2 cap PO DAILY [facility] Last Admin: 04/13/21 15:29 Dose: Not Given Documented by: Non-Formulary Medication (Lidocaine 4% [Aspercreme 4%]) 1 each TP ASDIRECTED PRN PRN Reason: Pain Tacrolimus 0.1% (OintmentOwn Med) 1 each TOP BID [facility] Last Admin: 04/16/21 09:06 Dose: Not Given Documented by: Non-Formulary Medication (Non-Formulary Medication 1 Each) 1 each TOP BID PRN PRN Reason: irritation Tacrolimus 0.1% (OintmentOwn Med) 1 each TOP BID PRN PRN Reason: APPLY Last Admin: 04/29/21 14:47 Dose: 1 each Documented by: Nystatin (Nystatin Topical Powder 15 Gm Bottle) 0 gm TOP BID [facility] Last Admin: 04/16/21 09:06 Dose: Not Given Documented by: Nystatin (Nystatin Topical Powder 15 Gm Bottle) 0 gm TOP BID PRN PRN Reason: Rash Sodium Chloride (Sodium Chloride 0.9% 10 Ml Syringe) 10 ml IV ASDIRECTED PRN PRN Reason: Keep Vein Open Last Admin: 04/30/21 09:19 Dose: 10 ml Documented by: Zinc Gluconate (Zinc (Zinc Gluconate) 50 Mg Tab) 50 mg PO DAILY [facility] Last Admin: 05/05/21 08:27 Dose: 50 mg Documented by: - Exam General: Alert, Oriented, Cooperative, No Acute Distress Lungs: Clear to Auscultation, Normal Respiratory Effort Cardiovascular: Regular Rate, Regular Rhythm, No Murmurs - Patient Data Lab Results Last 24 hrs: Laboratory Results - last 24 hr 05/08/21 05/08/21 Range/Units 07:19 07:19 WBC 5.45 (5.00-10.00) 10^3/uL RBC 3.67 L (3.80-5.50) 10^6/uL Hgb 8.6 L (12.0-16.0) g/dL Hct 27.6 L (37.0-47.0) % MCV 75.2 L (82.0-92.0) fL MCH 23.4 L (27.0-31.0) pg MCHC 31.2 L (32.0-36.0) g/dL RDW 19.5 H (11.5-14.5) % Plt Count 250 (150-400) 10^3/uL MPV 9.7 (7.4-10.4) fL Immature Gran % (Auto) 0.2 (0.0-5.0) % Neut % (Auto) 64.5 (50.0-70.0) % Lymph % (Auto) 21.3 (20.0-40.0) % [place] % (Auto) 9.7 H (2.0-8.0) % Eos % (Auto) 3.7 H (1.0-3.0) % Baso % (Auto) 0.6 (0.0-1.0) % Neut # (Auto) 3.52 (2.50-7.00) 10^3/uL Lymph # (Auto) 1.16 (1.00-4.00) 10^3/uL [place] # (Auto) 0.53 (0.10-0.80) 10^3/uL Eos # (Auto) 0.20 (0.10-0.30) 10^3/uL Baso # (Auto) 0.03 (0.00-0.10) 10^3/uL Immature Gran # (Auto) 0.01 (0.00-0.50) 10^3/uL Creatinine 0.99 (0.51-1.17) mg/dL Est Cr Clr Drug Dosing 42.32 mL/min Estimated GFR (MDRD) 57 mL/min ALT 23 (14-63) U/L Creatine Kinase 237 (26-276) U/L Result Diagrams: 05/08/21 07:19 05/08/21 07:19 Sepsis Event Note - Evaluation Sepsis Screening Result: No Definite Risk - Focused Exam Vital Signs: Vital Signs Temp Pulse Resp BP Pulse Ox 05/08/21 06:49 98.0 F 70 18 111/68 94 L - Problem List Review Problem List Initiated/Reviewed/Updated: Yes - My Orders Last 24 Hours: My Active Orders 05/15/21 05:11 ALANINE AMINOTRANSFERASE,ALT [CHEM] Q7D CBC WITH AUTO DIFF [HEME] Q7D CREATINE KINASE,CK [CHEM] Q7D CREATININE W/GFR [CHEM] Q7D - Plan Plan:: Admission Diagnosis: Scalp wound with osteomyelitis of the calvarium s/p excisional debridement and wound vac placement 04/06/2021 Nguyen is medically optimized to proceed with the proposed procedure on 05/18 - Cefepime 2 grams IV q 8 hours - Daptomycin 350 mg IV daily - Wound vac changes q 3 days Secondary Diagnoses: Hx hypokalemia - KCl 40 mEq PO daily COPD - Albuterol nebs q 4 hours PRN Anxiety - Sertraline 50 mg PO daily - Hydroxyzine 25 mg PO BID PRN - Lorazepam 1 mg PO TID PRN Hyperlipidemia - Rosuvastatin 10 mg PO qhs RLS - Pramipexole 1 mg PO TID Acid Reflux - Omeprazole 20 mg PO BID Hx peripheral edema - Furosemide 20 mg PO BID Chronic Pain - Oxycodone 5 mg PO q 4 hours PRN Pain Multiple other vitamins and supplements the patient is on, see med list. CODE STATUS: Full Code
[2021-05-08] MEDS: Sodium Chloride 0.9% 100 ML IV SCH (20:11)
[2021-05-09] MEDS: Pantoprazole 40 MG Tab.CR PO SCH ×2 (06:29→16:55)
[2021-05-09] MEDS: Pramipexole 0.5 MG Tab PO SCH ×3 (10:05→20:21)
[2021-05-09] MEDS: Cefepime 2 GM in Sodium Chloride 0.9% 50 ML IV SCH ×2 (10:05→20:20)
[2021-05-09] MEDS: oxyCODONE 5 MG Tab PO PRN ×2 (10:05→20:21)
[2021-05-09] MEDS: Furosemide 20 MG Tab PO SCH ×2 (10:06→14:19)
[2021-05-09] MEDS: LORazepam 0.5 MG Tab PO PRN ×2 (10:06→20:21)
[2021-05-09] MEDS: Potassium Chloride 20 MEQ Tab.ER PO SCH ×2 (10:06→20:21)
[2021-05-09] MEDS: Sertraline 50 MG Tab PO SCH (10:06)
[2021-05-09] MEDS: DAPTOmycin 500 MG Vial IV SCH (10:07)
[2021-05-09] MEDS: Ceres/Mineral Oil/Petrolatum/Wool Alcohol Cream 57 GM Tube TOP SCH (10:07)
[2021-05-09] MEDS: Sodium Chloride 0.9% 10 ML Syringe IV SCH ×2 (10:07→20:18)
[2021-05-09] MEDS: Sodium Chloride 0.9% 100 ML IV SCH (20:18)
[2021-05-10] MEDS: Sodium Chloride 0.9% 10 ML Syringe IV SCH ×3 (05:30→20:27)
[2021-05-10] MEDS: DAPTOmycin 500 MG Vial IV SCH ×2 (05:31→08:38)
[2021-05-10] MEDS: Cefepime 2 GM in Sodium Chloride 0.9% 50 ML IV SCH ×3 (05:36→20:28)
[2021-05-10] MEDS: Pramipexole 0.5 MG Tab PO SCH ×4 (06:28→20:28)
[2021-05-10] MEDS: Pantoprazole 40 MG Tab.CR PO SCH ×2 (06:29→17:23)
[2021-05-10] MEDS: Potassium Chloride 20 MEQ Tab.ER PO SCH ×3 (06:29→20:28)
[2021-05-10] MEDS: Furosemide 20 MG Tab PO SCH ×3 (06:29→14:38)
[2021-05-10] MEDS: Sertraline 50 MG Tab PO SCH ×2 (06:30→08:43)
[2021-05-10] MEDS: Ceres/Mineral Oil/Petrolatum/Wool Alcohol Cream 57 GM Tube TOP SCH ×2 (06:33→08:38)
[2021-05-10] MEDS: LORazepam 0.5 MG Tab PO PRN ×2 (07:39→21:24)
[2021-05-10] MEDS: oxyCODONE 5 MG Tab PO PRN ×2 (07:39→21:24)
[2021-05-11] MEDS: Pantoprazole 40 MG Tab.CR PO SCH ×3 (06:09→17:33)
[2021-05-11] MEDS: Potassium Chloride 20 MEQ Tab.ER PO SCH ×2 (09:34→21:10)
[2021-05-11] MEDS: Furosemide 20 MG Tab PO SCH ×2 (09:34→16:21)
[2021-05-11] MEDS: Pramipexole 0.5 MG Tab PO SCH ×3 (09:34→21:10)
[2021-05-11] MEDS: Sertraline 50 MG Tab PO SCH (09:34)
[2021-05-11] MEDS: Sodium Chloride 0.9% 10 ML Syringe IV SCH ×3 (10:11→21:12)
[2021-05-11] MEDS: Cefepime 2 GM in Sodium Chloride 0.9% 50 ML IV SCH ×2 (10:12→21:05)
[2021-05-11] MEDS: Sodium Chloride 0.9% 100 ML IV SCH (10:12)
[2021-05-11] MEDS: oxyCODONE 5 MG Tab PO PRN ×2 (10:16→21:09)
[2021-05-11] MEDS: LORazepam 0.5 MG Tab PO PRN ×2 (10:17→21:10)
[2021-05-11] MEDS: DAPTOmycin 500 MG Vial IV SCH (11:12)
[2021-05-11] MEDS: Ceres/Mineral Oil/Petrolatum/Wool Alcohol Cream 57 GM Tube TOP SCH (11:13)
[2021-05-12] MEDS: Pantoprazole 40 MG Tab.CR PO SCH ×3 (05:55→17:23)
[2021-05-12] MEDS: oxyCODONE 5 MG Tab PO PRN ×2 (08:31→21:20)
[2021-05-12] MEDS: Furosemide 20 MG Tab PO SCH ×2 (08:32→16:47)
[2021-05-12] MEDS: Pramipexole 0.5 MG Tab PO SCH ×3 (08:32→21:20)
[2021-05-12] MEDS: Potassium Chloride 20 MEQ Tab.ER PO SCH ×2 (08:32→21:20)
[2021-05-12] MEDS: LORazepam 0.5 MG Tab PO PRN ×2 (08:32→21:20)
[2021-05-12] MEDS: Sertraline 50 MG Tab PO SCH (08:33)
[2021-05-12] MEDS: DAPTOmycin 500 MG Vial IV SCH (08:33)
[2021-05-12] MEDS: Sodium Chloride 0.9% 10 ML Syringe IV SCH ×2 (08:34→21:59)
[2021-05-12] MEDS: Ceres/Mineral Oil/Petrolatum/Wool Alcohol Cream 57 GM Tube TOP SCH (08:35)
[2021-05-12] MEDS: Cefepime 2 GM in Sodium Chloride 0.9% 50 ML IV SCH ×2 (08:36→21:20)
[2021-05-12] MEDS: Sodium Chloride 0.9% 100 ML IV SCH (21:58)
[2021-05-13] MEDS: Pantoprazole 40 MG Tab.CR PO SCH ×3 (06:21→17:05)
[2021-05-13] MEDS: Ceres/Mineral Oil/Petrolatum/Wool Alcohol Cream 57 GM Tube TOP SCH (09:03)
[2021-05-13] MEDS: Sertraline 50 MG Tab PO SCH (09:03)
[2021-05-13] MEDS: Furosemide 20 MG Tab PO SCH ×2 (09:03→15:07)
[2021-05-13] MEDS: Potassium Chloride 20 MEQ Tab.ER PO SCH ×2 (09:03→21:35)
[2021-05-13] MEDS: Pramipexole 0.5 MG Tab PO SCH ×3 (09:03→21:35)
[2021-05-13] MEDS: DAPTOmycin 500 MG Vial IV SCH (09:03)
[2021-05-13] MEDS: Cefepime 2 GM in Sodium Chloride 0.9% 50 ML IV SCH ×2 (09:03→21:31)
[2021-05-13] MEDS: oxyCODONE 5 MG Tab PO PRN ×2 (09:04→21:37)
[2021-05-13] MEDS: LORazepam 0.5 MG Tab PO PRN ×2 (09:04→21:36)
[2021-05-13] MEDS: Sodium Chloride 0.9% 10 ML Syringe IV SCH ×2 (09:05→22:33)
[2021-05-14] MEDS: Pantoprazole 40 MG Tab.CR PO SCH ×2 (06:40→18:29)
[2021-05-14] MEDS: Ceres/Mineral Oil/Petrolatum/Wool Alcohol Cream 57 GM Tube TOP SCH (08:05)
[2021-05-14] MEDS: DAPTOmycin 500 MG Vial IV SCH (08:07)
[2021-05-14] MEDS: Cefepime 2 GM in Sodium Chloride 0.9% 50 ML IV SCH ×2 (08:08→20:51)
[2021-05-14] MEDS: Potassium Chloride 20 MEQ Tab.ER PO SCH ×2 (08:09→20:53)
[2021-05-14] MEDS: Furosemide 20 MG Tab PO SCH ×2 (08:10→18:28)
[2021-05-14] MEDS: Sertraline 50 MG Tab PO SCH (08:10)
[2021-05-14] MEDS: Pramipexole 0.5 MG Tab PO SCH ×3 (08:10→20:53)
[2021-05-14] MEDS: LORazepam 0.5 MG Tab PO PRN ×2 (08:10→20:54)
[2021-05-14] MEDS: oxyCODONE 5 MG Tab PO PRN ×2 (08:10→20:55)
[2021-05-14] MEDS: Sodium Chloride 0.9% 10 ML Syringe IV SCH ×2 (08:12→20:51)
[2021-05-15] MEDS: Pantoprazole 40 MG Tab.CR PO SCH ×3 (06:09→18:12)
[2021-05-15] MEDS: Furosemide 20 MG Tab PO SCH ×2 (08:45→14:40)
[2021-05-15] MEDS: Sertraline 50 MG Tab PO SCH (08:45)
[2021-05-15] MEDS: Cefepime 2 GM in Sodium Chloride 0.9% 50 ML IV SCH ×2 (08:45→20:35)
[2021-05-15] MEDS: DAPTOmycin 500 MG Vial IV SCH (08:45)
[2021-05-15] MEDS: Potassium Chloride 20 MEQ Tab.ER PO SCH ×2 (08:45→20:37)
[2021-05-15] MEDS: Sodium Chloride 0.9% 100 ML IV SCH (08:45)
[2021-05-15] MEDS: Pramipexole 0.5 MG Tab PO SCH ×3 (08:46→20:37)
[2021-05-15] MEDS: Ceres/Mineral Oil/Petrolatum/Wool Alcohol Cream 57 GM Tube TOP SCH (08:47)
[2021-05-15] MEDS: LORazepam 0.5 MG Tab PO PRN ×2 (08:47→20:37)
[2021-05-15] MEDS: oxyCODONE 5 MG Tab PO PRN ×2 (08:47→20:37)
[2021-05-15] MEDS: Sodium Chloride 0.9% 10 ML Syringe IV SCH ×2 (11:17→20:35)
[2021-05-16] MEDS: Pantoprazole 40 MG Tab.CR PO SCH ×3 (06:10→18:36)
[2021-05-16] MEDS: DAPTOmycin 500 MG Vial IV SCH (08:17)
[2021-05-16] MEDS: Sodium Chloride 0.9% 100 ML IV SCH (08:17)
[2021-05-16] MEDS: Ceres/Mineral Oil/Petrolatum/Wool Alcohol Cream 57 GM Tube TOP SCH (08:18)
[2021-05-16] MEDS: Sertraline 50 MG Tab PO SCH (08:19)
[2021-05-16] MEDS: Potassium Chloride 20 MEQ Tab.ER PO SCH ×2 (08:19→20:16)
[2021-05-16] MEDS: oxyCODONE 5 MG Tab PO PRN ×2 (08:19→20:08)
[2021-05-16] MEDS: LORazepam 0.5 MG Tab PO PRN ×2 (08:19→20:08)
[2021-05-16] MEDS: Pramipexole 0.5 MG Tab PO SCH ×3 (08:19→20:08)
[2021-05-16] MEDS: Cefepime 2 GM in Sodium Chloride 0.9% 50 ML IV SCH ×2 (08:19→20:06)
[2021-05-16] MEDS: Furosemide 20 MG Tab PO SCH ×2 (08:20→16:22)
[2021-05-16] MEDS: Sodium Chloride 0.9% 10 ML Syringe IV SCH ×2 (08:20→20:20)
[2021-05-16] MEDS: hydrOXYzine HCl 25 MG Tab PO PRN (09:30)
[2021-05-17] MEDS: Pantoprazole 40 MG Tab.CR PO SCH ×3 (06:09→17:07)
[2021-05-17] MEDS: Sodium Chloride 0.9% 10 ML Syringe IV SCH ×2 (08:27→20:41)
[2021-05-17] MEDS: DAPTOmycin 500 MG Vial IV SCH (08:27)
[2021-05-17] MEDS: Ceres/Mineral Oil/Petrolatum/Wool Alcohol Cream 57 GM Tube TOP SCH (08:29)
[2021-05-17] MEDS: Sodium Chloride 0.9% 100 ML IV SCH (08:31)
[2021-05-17] MEDS: Cefepime 2 GM in Sodium Chloride 0.9% 50 ML IV SCH ×2 (08:31→20:36)
[2021-05-17] MEDS: Potassium Chloride 20 MEQ Tab.ER PO SCH ×2 (08:32→20:39)
[2021-05-17] MEDS: LORazepam 0.5 MG Tab PO PRN ×2 (08:32→20:46)
[2021-05-17] MEDS: oxyCODONE 5 MG Tab PO PRN ×2 (08:32→20:46)
[2021-05-17] MEDS: Pramipexole 0.5 MG Tab PO SCH ×3 (08:33→20:39)
[2021-05-17] MEDS: Furosemide 20 MG Tab PO SCH ×2 (08:33→14:29)
[2021-05-17] MEDS: Sertraline 50 MG Tab PO SCH (08:33)
--- NOTE | 2021-05-17 09:49 | PCM.PN ---
- General Info Date of Service: 05/17/21 Admission Dx/Problem (Free Text): Admission Diagnosis/Problem Admission Diagnosis/Problem Osteomyelitis - Review of Systems Systems Review Comment:: Nguyen is seen today on swingbed rounds. She had an appointment with her surgical team on 05/16 at [facility] to discuss her grafting of the open wound on 05/18. She states that she was told that it may be a same day procedure but "they won't know for sure until after they do it". She would likely return to swingbed status for wound cares and to complete the 6 weeks of IV cefepime and daptomycin. She has no questions or concerns today. - Patient Data Vitals - Most Recent: Last Vital Signs Temp 97.8 F 05/17/21 06:25 Pulse 88 05/17/21 06:25 Resp 17 05/17/21 06:25 BP 125/66 05/17/21 06:25 Pulse Ox 95 05/17/21 06:25 Weight - Most Recent: 125 lb 8 oz I&O - Last 24 Hours: Intake & Output 05/16/21 05/17/21 05/17/21 22:59 06:59 14:59 Intake Total 410 170 Balance 410 170 Med Orders - Current: Current Medications Acetaminophen (Acetaminophen 500 Mg Tab) 500 mg PO Q4H PRN PRN Reason: Pain Last Admin: 04/14/21 20:29 Dose: 500 mg Documented by: Albuterol (Albuterol 8 Gm Inhaler) 0 gm INH Q4H PRN PRN Reason: Shortness of Breath Albuterol/Ipratropium (Albuterol/Ipratropium 3.0-0.5 Mg/3 Ml Neb Soln) 3 ml INH Q4H PRN PRN Reason: Shortness of Breath Cyclobenzaprine HCl (Cyclobenzaprine 10 Mg Tab) 10 mg PO TID PRN PRN Reason: muscle spasms Last Admin: 04/14/21 06:00 Dose: 10 mg Documented by: Daptomycin (Daptomycin 500 Mg Vial) 350 mg IV DAILY [facility] Stop: 06/02/21 09:01 Last Admin: 05/17/21 08:27 Dose: 350 mg Documented by: Fluticasone Propionate (Fluticasone Propionate Nasal [place] 16 Gm Bottle) 0 gm CHRISTIANA DAILY PRN PRN Reason: Allergies Furosemide (Furosemide 20 Mg Tab) 20 mg PO BID@0900,1500 [facility] Last Admin: 05/17/21 08:33 Dose: 20 mg Documented by: Hydroxyzine HCl (Hydroxyzine Hcl 25 Mg Tab) 25 mg PO Q6H PRN PRN Reason: Itching Last Admin: 05/16/21 09:30 Dose: 25 mg Documented by: Cefepime HCl 2 gm/ Sodium (Chloride) 50 mls @ 100 mls/hr IV Q12H [facility] Stop: 06/02/21 21:01 Last Admin: 05/17/21 08:31 Dose: 100 mls/hr Documented by: Sodium Chloride (Normal Saline) 100 mls @ 125 mls/hr IV ASDIRECTED [facility] Last Admin: 05/17/21 08:31 Dose: 125 mls/hr Documented by: Lidocaine (Lidocaine 5% 700 Mg Patch) 700 mg TOP DAILY PRN PRN Reason: Pain Lorazepam (Lorazepam 0.5 Mg Tab) 1 mg PO TID PRN PRN Reason: Anxiety Last Admin: 05/17/21 08:32 Dose: 1 mg Documented by: Miscellaneous Information (Remove Patch) 1 ea TRDERM BEDTIME PRN PRN Reason: when removing patch Multi-Ingredient Ointment ([place]/Mineral Oil/Petrolatum/Wool Alcohol Cream 57 Gm Tube) 1 gm TOP DAILY [facility] Last Admin: 05/17/21 08:29 Dose: 1 applic Documented by: Oxycodone HCl (Oxycodone 5 Mg Tab) 10 mg PO Q6H PRN PRN Reason: Pain Last Admin: 05/17/21 08:32 Dose: 10 mg Documented by: Pantoprazole Sodium (Pantoprazole 40 Mg Tab.Cr) 40 mg PO BIDAC [facility] Last Admin: 05/17/21 06:30 Dose: Not Given Documented by: Potassium Chloride (Potassium Chloride 20 Meq Tab.Er) 20 meq PO BID [facility] Last Admin: 05/17/21 08:32 Dose: 20 meq Documented by: Pramipexole Dihydrochloride (Pramipexole 0.5 Mg Tab) 1 mg PO TID [facility] Last Admin: 05/17/21 08:33 Dose: 1 mg Documented by: Prochlorperazine Maleate (Prochlorperazine 5 Mg Tab) 10 mg PO Q6H PRN PRN Reason: Vomiting Last Admin: 05/02/21 19:17 Dose: 10 mg Documented by: Sertraline HCl (Sertraline 50 Mg Tab) 50 mg PO DAILY [facility] Last Admin: 05/17/21 08:33 Dose: 50 mg Documented by: Sodium Chloride (Sodium Chloride 0.9% 10 Ml Syringe) 10 ml IV BID [facility] Last Admin: 05/17/21 08:27 Dose: 10 ml Documented by: Discontinued Medications Cholecalciferol (Cholecalciferol (Vitamin D3) 25 Mcg Tab) 50 mcg PO DAILY [facility] Last Admin: 05/05/21 08:28 Dose: 50 mcg Documented by: Diclofenac Sodium (Diclofenac Sodium 1% Gel 100 Gm Tube) gm TOP ASDIRECTED PRN PRN Reason: Pain Diclofenac Sodium (Diclofenac Sodium 1% Gel 100 Gm Tube) 100 gm TOP ASDIRECTED PRN PRN Reason: Pain Diclofenac Sodium (Diclofenac Sodium 1% Gel 100 Gm Tube) 4 gm TOP TID PRN PRN Reason: Pain Docusate Sodium (Docusate Sodium 100 Mg Cap) 100 mg PO DAILY [facility] Last Admin: 05/05/21 08:28 Dose: 100 mg Documented by: Furosemide (Furosemide 20 Mg Tab) 20 mg PO BID [facility] Heparin Sodium (Porcine) (Heparin Sodium 100 Units/Ml 5 Ml Syringe) 300 units IVPUSH BID [facility] Last Admin: 05/05/21 10:15 Dose: Not Given Documented by: Hydroxyzine HCl (Hydroxyzine Hcl 25 Mg Tab) 25 mg PO Q6H PRN PRN Reason: Itching Last Admin: 05/04/21 20:56 Dose: 25 mg Documented by: Lactobacillus Rhamnosus (Lactobacillus Rhamnosus Gg (Probiotic) Cap) 2 cap PO DAILY [facility] Last Admin: 04/25/21 08:38 Dose: Not Given Documented by: Miscellaneous Information (Remove Patch) 1 ea TRDERM BEDTIME [facility] Last Admin: 05/13/21 21:41 Dose: Not Given Documented by: Non-Formulary Medication (Cefepime) 2,000 mg IV Q12HR [facility] Non-Formulary Medication (Clobetasol Propionate [Clobetasol Propionate]) 1 applic TOP DAILY [facility] Last Admin: 04/13/21 15:29 Dose: Not Given Documented by: Non-Formulary Medication (Fluocinonide [Lidex 0.05% Top Soln]) 1 applic TOP DAILY [facility] Last Admin: 04/13/21 15:29 Dose: Not Given Documented by: Non-Formulary Medication (L.Acidoph,Paracasei, B.Lactis [Probiotic]) 2 cap PO DAILY [facility] Last Admin: 04/13/21 15:29 Dose: Not Given Documented by: Non-Formulary Medication (Lidocaine 4% [Aspercreme 4%]) 1 each TP ASDIRECTED PRN PRN Reason: Pain Tacrolimus 0.1% (OintmentOwn Med) 1 each TOP BID [facility] Last Admin: 04/16/21 09:06 Dose: Not Given Documented by: Non-Formulary Medication (Non-Formulary Medication 1 Each) 1 each TOP BID PRN PRN Reason: irritation Tacrolimus 0.1% (OintmentOwn Med) 1 each TOP BID PRN PRN Reason: APPLY Last Admin: 04/29/21 14:47 Dose: 1 each Documented by: Nystatin (Nystatin Topical Powder 15 Gm Bottle) 0 gm TOP BID [facility] Last Admin: 04/16/21 09:06 Dose: Not Given Documented by: Nystatin (Nystatin Topical Powder 15 Gm Bottle) 0 gm TOP BID PRN PRN Reason: Rash Sodium Chloride (Sodium Chloride 0.9% 10 Ml Syringe) 10 ml IV ASDIRECTED PRN PRN Reason: Keep Vein Open Last Admin: 04/30/21 09:19 Dose: 10 ml Documented by: Zinc Gluconate (Zinc (Zinc Gluconate) 50 Mg Tab) 50 mg PO DAILY [facility] Last Admin: 05/05/21 08:27 Dose: 50 mg Documented by: - Exam General: Alert, Oriented, Cooperative, No Acute Distress - Patient Data Result Diagrams: 05/15/21 07:10 05/15/21 07:10 Sepsis Event Note - Evaluation Sepsis Screening Result: No Definite Risk - Focused Exam Vital Signs: Vital Signs Temp Pulse Resp BP Pulse Ox 05/17/21 06:25 97.8 F 88 17 125/66 95 - Problem List Review Problem List Initiated/Reviewed/Updated: Yes - My Orders Last 24 Hours: My Active Orders 05/16/21 09:02 hydrOXYzine HCL [Atarax] 25 mg PO Q6H PRN 05/16/21 21:00 Communication Order [RC] BID 05/18/21 Breakfast NPO After Midnight [Nothing per Oral After Midnight Diet] [DIET] 05/22/21 05:11 ALANINE AMINOTRANSFERASE,ALT [CHEM] Q7D CBC WITH AUTO DIFF [HEME] Q7D CREATINE KINASE,CK [CHEM] Q7D CREATININE W/GFR [CHEM] Q7D 05/29/21 05:11 ALANINE AMINOTRANSFERASE,ALT [CHEM] Q7D CBC WITH AUTO DIFF [HEME] Q7D CREATINE KINASE,CK [CHEM] Q7D CREATININE W/GFR [CHEM] Q7D - Plan Plan:: Admission Diagnosis: Scalp wound with osteomyelitis of the calvarium s/p excisional debridement and wound vac placement 04/06/2021 Nguyen is medically optimized to proceed with the proposed procedure on 05/18 - Cefepime 2 grams IV q 8 hours - Daptomycin 350 mg IV daily - Wound vac changes q 3 days Secondary Diagnoses: Hx hypokalemia - KCl 40 mEq PO daily COPD - Albuterol nebs q 4 hours PRN Anxiety - Sertraline 50 mg PO daily - Hydroxyzine 25 mg PO BID PRN - Lorazepam 1 mg PO TID PRN Hyperlipidemia - Rosuvastatin 10 mg PO qhs RLS - Pramipexole 1 mg PO TID Acid Reflux - Omeprazole 20 mg PO BID Hx peripheral edema - Furosemide 20 mg PO BID Chronic Pain - Oxycodone 5 mg PO q 4 hours PRN Pain Multiple other vitamins and supplements the patient is on, see med list. CODE STATUS: Full Code
[2021-05-17] MEDS: hydrOXYzine HCl 25 MG Tab PO PRN (20:39)
[2021-05-18] MEDS: DAPTOmycin 500 MG Vial IV SCH (04:15)
[2021-05-18] MEDS: Cefepime 2 GM in Sodium Chloride 0.9% 50 ML IV SCH (04:22)
[2021-05-18] MEDS: Sertraline 50 MG Tab PO SCH (04:23)
[2021-05-18] MEDS: Pramipexole 0.5 MG Tab PO SCH (04:24)
[2021-05-18] MEDS: Pantoprazole 40 MG Tab.CR PO SCH ×2 (04:24→07:53)
[2021-05-18 04:29] VITALS: BP 114/66; PULSE 65
[2021-05-18] MEDS: oxyCODONE 5 MG Tab PO PRN (05:10)
--- NOTE | 2021-05-19 13:16 | PCM.DCSUM1 ---
Discharge Summary - Hospital Course Diagnosis: Stroke: No - Discharge Data Discharge Date: 05/18/21 Discharge Disposition: DC/Tfer to Acute Hospital 02 Condition: Good - Referral to Home Health Primary Care Physician: Mildred Montenegro MD - Patient Summary/Data Consults: Consultations 04/12/21 17:56 Consult to Dietary [Consult to [employer]] [CONS] Routine - Discharge Plan Home Medications: Home Meds Albuterol [Ventolin HFA] 2 puff INH Q4H PRN 08/13/16 [History] LORazepam 1 mg PO TID PRN 04/05/17 [History] Acetaminophen [Acetaminophen Extra Strength] 500 mg PO Q4H PRN 09/25/17 [History] Furosemide [Lasix] 20 mg PO BID 08/11/18 [History] Prochlorperazine [Compazine] 10 mg PO Q6H PRN 08/11/18 [History] oxyCODONE 10 mg PO Q6H PRN 09/16/19 [History] Clobetasol Propionate 1 applic TOP DAILY 11/02/20 [History] Fluocinonide [Lidex 0.05% Top Soln] 1 applic TOP DAILY 11/02/20 [History] L.acidoph,Paracasei, B.lactis [Probiotic] 2 cap PO DAILY 11/02/20 [History] Potassium Chloride [Klor-Con M20] 40 meq PO DAILY 11/02/20 [History] Sertraline HCl [Zoloft] 50 mg PO DAILY 11/02/20 [History] Albuterol/Ipratropium [DuoNeb 3.0-0.5 MG/3 ML] 3 ml INH Q4H PRN 11/13/20 [History] Cyclobenzaprine [Flexeril] 10 mg PO TID PRN 11/13/20 [History] Cholecalciferol (Vitamin D3) [Vitamin D3] 2,000 unit PO DAILY 11/14/20 [History] Nystatin [Nystop] 1 applic TP BID 11/14/20 [History] Pramipexole [Mirapex] 1 mg PO TID 11/14/20 [History] hydrOXYzine HCL [hydrOXYzine] 25 mg PO Q6H PRN 11/14/20 [History] Docusate Sodium [Colace] 100 mg PO DAILY cap 11/30/20 [Rx] Omeprazole 20 mg PO BIDAC cap.cr 11/30/20 [Rx] Cefepime [Maxipime in D5W 2 GM/50 ML] 2,000 mg IV Q12HR 04/12/21 [History] DAPTOmycin [Cubicin] 350 mg IV DAILY 04/12/21 [History] Diclofenac Sodium [Voltaren 1% Gel] 1 applic TOP ASDIRECTED PRN 04/12/21 [History] Fluticasone Propionate [Flonase] 50 mcg [place] DAILY PRN 04/12/21 [History] Heparin Sodium,Porcine/PF [Heparin Lock Flush 100 Unit/ml] 300 unit IV ASDIRECTED 04/12/21 [History] Lidocaine 4% [Aspercreme 4%] 1 each TP ASDIRECTED PRN 04/12/21 [History] Nystatin 100,000 unit PO ASDIRECTED 04/12/21 [History] Sodium Chloride 0.9% [Saline Flush Sterile Syringe] 10 ml IV ASDIRECTED 04/12/21 [History] Zinc Gluconate [Zinc] 50 mg PO DAILY 04/12/21 [History] - Discharge Summary/Plan Comment DC Time >30 min.: No Total # of Minutes for Discharge Time: 20 Discharge Summary/Plan Comment: Final diagnosis 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 Swing bed hospital course Nguyen had no major occasions while in swing bed. Continued with wound VAC to her scalp and seemed to be operating/tolerating. Did have some GI issues that was felt to be due to her dressings in her scalp however after that was removed her GI issues were resolved. She remained on antibiotics of cefepime and daptomycin Disposition/overall plan: Patient was transferred to acute tertiary care center as scheduled for surgery and appears will return to us in a few days into a swing-bed status for wound cares and to complete the 6 weeks of IV cefepime and daptomycin. There was NO Physical exam done as the patient was not evaluated on day of discharge - Patient Data Vitals - Most Recent: Last Vital Signs Temp 98.5 F 05/18/21 04:27 Pulse 65 05/18/21 04:27 Resp 20 05/18/21 04:27 BP 114/66 05/18/21 04:27 Pulse Ox 94 L 05/18/21 04:27 Weight - Most Recent: 125 lb 8 oz Med Orders - Current: Current Medications Discontinued Medications Acetaminophen (Acetaminophen 500 Mg Tab) 500 mg PO Q4H PRN PRN Reason: Pain Last Admin: 04/14/21 20:29 Dose: 500 mg Documented by: Albuterol (Albuterol 8 Gm Inhaler) 0 gm INH Q4H PRN PRN Reason: Shortness of Breath Albuterol/Ipratropium (Albuterol/Ipratropium 3.0-0.5 Mg/3 Ml Neb Soln) 3 ml INH Q4H PRN PRN Reason: Shortness of Breath Cholecalciferol (Cholecalciferol (Vitamin D3) 25 Mcg Tab) 50 mcg PO DAILY [facility] Last Admin: 05/05/21 08:28 Dose: 50 mcg Documented by: Cyclobenzaprine HCl (Cyclobenzaprine 10 Mg Tab) 10 mg PO TID PRN PRN Reason: muscle spasms Last Admin: 04/14/21 06:00 Dose: 10 mg Documented by: Daptomycin (Daptomycin 500 Mg Vial) 350 mg IV DAILY [facility] Stop: 06/02/21 09:01 Last Admin: 05/18/21 04:15 Dose: 350 mg Documented by: Diclofenac Sodium (Diclofenac Sodium 1% Gel 100 Gm Tube) gm TOP ASDIRECTED PRN PRN Reason: Pain Diclofenac Sodium (Diclofenac Sodium 1% Gel 100 Gm Tube) 100 gm TOP ASDIRECTED PRN PRN Reason: Pain Diclofenac Sodium (Diclofenac Sodium 1% Gel 100 Gm Tube) 4 gm TOP TID PRN PRN Reason: Pain Docusate Sodium (Docusate Sodium 100 Mg Cap) 100 mg PO DAILY [facility] Last Admin: 05/05/21 08:28 Dose: 100 mg Documented by: Fluticasone Propionate (Fluticasone Propionate Nasal [place] 16 Gm Bottle) 0 gm [place] DAILY PRN PRN Reason: Allergies Furosemide (Furosemide 20 Mg Tab) 20 mg PO BID [facility] Furosemide (Furosemide 20 Mg Tab) 20 mg PO BID@0900,1500 [facility] Last Admin: 05/17/21 14:29 Dose: 20 mg Documented by: Heparin Sodium (Porcine) (Heparin Sodium 100 Units/Ml 5 Ml Syringe) 300 units IVPUSH BID [facility] Last Admin: 05/05/21 10:15 Dose: Not Given Documented by: Hydroxyzine HCl (Hydroxyzine Hcl 25 Mg Tab) 25 mg PO Q6H PRN PRN Reason: Itching Last Admin: 05/04/21 20:56 Dose: 25 mg Documented by: Hydroxyzine HCl (Hydroxyzine Hcl 25 Mg Tab) 25 mg PO Q6H PRN PRN Reason: Itching Last Admin: 05/17/21 20:39 Dose: 25 mg Documented by: Cefepime HCl 2 gm/ Sodium (Chloride) 50 mls @ 100 mls/hr IV Q12H NGUYỄN Stop: 06/02/21 21:01 Last Admin: 05/18/21 04:22 Dose: 100 mls/hr Documented by: Sodium Chloride (Normal Saline) 100 mls @ 125 mls/hr IV ASDIRECTED [facility] Last Admin: 05/17/21 08:31 Dose: 125 mls/hr Documented by: Lactobacillus Rhamnosus (Lactobacillus Rhamnosus Gg (Probiotic) Cap) 2 cap PO DAILY [facility] Last Admin: 04/25/21 08:38 Dose: Not Given Documented by: Lidocaine (Lidocaine 5% 700 Mg Patch) 700 mg TOP DAILY PRN PRN Reason: Pain Lorazepam (Lorazepam 0.5 Mg Tab) 1 mg PO TID PRN PRN Reason: Anxiety Last Admin: 05/17/21 20:46 Dose: 1 mg Documented by: Miscellaneous Information (Remove Patch) 1 ea TRDERM BEDTIME [facility] Last Admin: 05/13/21 21:41 Dose: Not Given Documented by: Miscellaneous Information (Remove Patch) 1 ea TRDERM BEDTIME PRN PRN Reason: when removing patch Multi-Ingredient Ointment ([place]/Mineral Oil/Petrolatum/Wool Alcohol Cream 57 Gm Tube) 1 gm TOP DAILY [facility] Last Admin: 05/17/21 08:29 Dose: 1 applic Documented by: Non-Formulary Medication (Cefepime) 2,000 mg IV Q12HR [facility] Non-Formulary Medication (Clobetasol Propionate [Clobetasol Propionate]) 1 applic TOP DAILY [facility] Last Admin: 04/13/21 15:29 Dose: Not Given Documented by: Non-Formulary Medication (Fluocinonide [Lidex 0.05% Top Soln]) 1 applic TOP DAILY [facility] Last Admin: 04/13/21 15:29 Dose: Not Given Documented by: Non-Formulary Medication (L.Acidoph,Paracasei, B.Lactis [Probiotic]) 2 cap PO DAILY [facility] Last Admin: 04/13/21 15:29 Dose: Not Given Documented by: Non-Formulary Medication (Lidocaine 4% [Aspercreme 4%]) 1 each TP ASDIRECTED PRN PRN Reason: Pain Tacrolimus 0.1% (OintmentOwn Med) 1 each TOP BID [facility] Last Admin: 04/16/21 09:06 Dose: Not Given Documented by: Non-Formulary Medication (Non-Formulary Medication 1 Each) 1 each TOP BID PRN PRN Reason: irritation Tacrolimus 0.1% (OintmentOwn Med) 1 each TOP BID PRN PRN Reason: APPLY Last Admin: 04/29/21 14:47 Dose: 1 each Documented by: Nystatin (Nystatin Topical Powder 15 Gm Bottle) 0 gm TOP BID [facility] Last Admin: 04/16/21 09:06 Dose: Not Given Documented by: Nystatin (Nystatin Topical Powder 15 Gm Bottle) 0 gm TOP BID PRN PRN Reason: Rash Oxycodone HCl (Oxycodone 5 Mg Tab) 10 mg PO Q6H PRN PRN Reason: Pain Last Admin: 05/18/21 05:10 Dose: 10 mg Documented by: Pantoprazole Sodium (Pantoprazole 40 Mg Tab.Cr) 40 mg PO BIDAC [facility] Last Admin: 05/18/21 07:53 Dose: Not Given Documented by: Potassium Chloride (Potassium Chloride 20 Meq Tab.Er) 20 meq PO BID [facility] Last Admin: 05/17/21 20:39 Dose: 20 meq Documented by: Pramipexole Dihydrochloride (Pramipexole 0.5 Mg Tab) 1 mg PO TID [facility] Last Admin: 05/18/21 04:24 Dose: 1 mg Documented by: Prochlorperazine Maleate (Prochlorperazine 5 Mg Tab) 10 mg PO Q6H PRN PRN Reason: Vomiting Last Admin: 05/02/21 19:17 Dose: 10 mg Documented by: Sertraline HCl (Sertraline 50 Mg Tab) 50 mg PO DAILY [facility] Last Admin: 05/18/21 04:23 Dose: 50 mg Documented by: Sodium Chloride (Sodium Chloride 0.9% 10 Ml Syringe) 10 ml IV ASDIRECTED PRN PRN Reason: Keep Vein Open Last Admin: 04/30/21 09:19 Dose: 10 ml Documented by: Sodium Chloride (Sodium Chloride 0.9% 10 Ml Syringe) 10 ml IV BID [facility] Last Admin: 05/17/21 20:41 Dose: 10 ml Documented by: Zinc Gluconate (Zinc (Zinc Gluconate) 50 Mg Tab) 50 mg PO DAILY [facility] Last Admin: 05/05/21 08:27 Dose: 50 mg Documented by:
== END 2021-05-18 13:30 | DRG 540 ==
LOC: KA.MS 15:27
PROVIDERS: ADMIT Internal Medicine; ATTEND Internal Medicine
DX: M86.8X8 Other osteomyelitis, other site (principal); D84.9 Immunodeficiency, unspecified; H54.7 Unspecified visual loss; I10 Essential (primary) hypertension; J44.9 Chronic obstructive pulmonary disease, unspecified; Z87.01 Personal history of pneumonia (recurrent); K59.09 Other constipation; K21.9 Gastro-esophageal reflux disease without esophagitis; M19.90 Unspecified osteoarthritis, unspecified site; G89.29 Other chronic pain; M54.2 Cervicalgia; E78.5 Hyperlipidemia, unspecified; G25.81 Restless legs syndrome; M32.9 Systemic lupus erythematosus, unspecified; F41.9 Anxiety disorder, unspecified; Z86.19 Personal history of other infectious and parasitic diseases; E87.6 Hypokalemia; Z88.1 Allergy status to other antibiotic agents; Z88.8 Allergy status to other drugs, medicaments and biological substances; Z79.899 Other long term (current) drug therapy
CPT/HCPCS: 36415; 82550; 82565; 83540; 84460; 85025; 97606; A9270-GY; J0692; J0878; J1642; Q0164

== ENCOUNTER 2021-05-23 14:14 | Inpatient (IN) | payer MEDICARE, BC, OTHER ==
[2021-05-23] MEDS ORDERED: Albuterol 8 GM Inhaler INH PRN (19:40)
[2021-05-23] MEDS ORDERED: Albuterol/Ipratropium 3.0-0.5 MG/3 ML Neb Soln INH PRN (19:40)
[2021-05-23] MEDS ORDERED: Fluticasone Propionate Nasal Spray 16 GM Bottle NAS PRN (19:40)
[2021-05-23] MEDS ORDERED: Cyclobenzaprine 10 MG Tab PO PRN (19:40)
[2021-05-23] MEDS ORDERED: Non-Formulary Medication 1 Each (Lidocaine 4% [Aspercreme 4%] 1 EACH Patch) TP PRN (19:40)
[2021-05-23] MEDS ORDERED: Diclofenac Sodium 1% Gel 100 GM Tube TOP PRN (19:40)
[2021-05-23] MEDS ORDERED: Acetaminophen 500 MG Tab PO PRN (19:40)
[2021-05-23] MEDS ORDERED: Sodium Chloride 0.9% 10 ML SDV IV PRN (19:45)
[2021-05-23] MEDS ORDERED: Nystatin Susp 100,000 Unit/ML 5 ML UD Cup PO PRN (21:00)
[2021-05-23] MEDS: Sodium Chloride 0.9% 100 ML IV SCH (21:30)
[2021-05-23] MEDS: Cefepime 2 GM in Sodium Chloride 0.9% 50 ML IV SCH (21:32)
[2021-05-23] MEDS: oxyCODONE 5 MG Tab PO PRN (21:35)
[2021-05-23] MEDS: Pramipexole 0.5 MG Tab PO SCH (21:35)
[2021-05-23] MEDS: LORazepam 0.5 MG Tab PO PRN (21:35)
[2021-05-23] MEDS: Nystatin Topical Powder 15 GM Bottle TOP SCH (21:38)
[2021-05-23] MEDS ORDERED: Cefepime 2 GM in Sodium Chloride 0.9% 50 ML IV SCH ×5 (22:00)
[2021-05-23] MEDS ORDERED: CEFEPIME 2 GM/50 ML IV SCH (22:00)
[2021-05-24] MEDS: Cefepime 2 GM in Sodium Chloride 0.9% 50 ML IV SCH ×4 (05:55→22:00)
[2021-05-24] MEDS: Pantoprazole 40 MG Tab.CR PO SCH ×3 (05:56→17:22)
[2021-05-24] MEDS ORDERED: Non-Formulary Medication 1 Each (L.Acidoph,Paracasei, B.Lactis [Probiotic] 1 EACH Capsule) PO SCH (09:00)
[2021-05-24] MEDS ORDERED: CLOBETASOL PROPIONATE TOP SCH (09:00)
[2021-05-24] MEDS ORDERED: FLUOCINONIDE TOP SCH (09:00)
[2021-05-24] MEDS: oxyCODONE 5 MG Tab PO PRN ×2 (09:14→20:53)
[2021-05-24] MEDS: Zinc (Zinc Gluconate) 50 MG Tab PO SCH (09:14)
[2021-05-24] MEDS: Pramipexole 0.5 MG Tab PO SCH ×3 (09:15→20:50)
[2021-05-24] MEDS: Cholecalciferol (Vitamin D3) 25 MCG Tab PO SCH (09:15)
[2021-05-24] MEDS: LORazepam 0.5 MG Tab PO PRN ×2 (09:15→20:54)
[2021-05-24] MEDS: Sertraline 50 MG Tab PO SCH (09:16)
[2021-05-24] MEDS: Docusate Sodium 100 MG Cap PO SCH (09:16)
[2021-05-24] MEDS: Nystatin Topical Powder 15 GM Bottle TOP SCH ×2 (09:18→20:55)
[2021-05-24] MEDS: DAPTOmycin 500 MG Vial IV SCH (09:22)
[2021-05-24] MEDS ORDERED: LIDOCAINE 4% TP PRN (10:00)
[2021-05-25] MEDS: Cefepime 2 GM in Sodium Chloride 0.9% 50 ML IV SCH ×3 (06:06→21:03)
[2021-05-25] MEDS: Pantoprazole 40 MG Tab.CR PO SCH ×2 (07:20→17:58)
[2021-05-25] MEDS: Cholecalciferol (Vitamin D3) 25 MCG Tab PO SCH (08:51)
[2021-05-25] MEDS: Sertraline 50 MG Tab PO SCH (08:51)
[2021-05-25] MEDS: Docusate Sodium 100 MG Cap PO SCH (08:51)
[2021-05-25] MEDS: Zinc (Zinc Gluconate) 50 MG Tab PO SCH (08:51)
[2021-05-25] MEDS: Pramipexole 0.5 MG Tab PO SCH ×3 (08:52→19:59)
[2021-05-25] MEDS: LORazepam 0.5 MG Tab PO PRN ×2 (08:59→21:17)
[2021-05-25] MEDS: oxyCODONE 5 MG Tab PO PRN ×2 (08:59→21:17)
[2021-05-25] MEDS: Nystatin Topical Powder 15 GM Bottle TOP SCH ×2 (09:01→20:07)
[2021-05-25] MEDS: DAPTOmycin 500 MG Vial IV SCH (09:59)
[2021-05-25] MEDS: Sodium Chloride 0.9% 100 ML IV SCH (13:49)
[2021-05-26] MEDS: Cefepime 2 GM in Sodium Chloride 0.9% 50 ML IV SCH ×3 (05:20→21:26)
[2021-05-26] MEDS: Pantoprazole 40 MG Tab.CR PO SCH ×3 (06:04→17:38)
[2021-05-26] MEDS: Cholecalciferol (Vitamin D3) 25 MCG Tab PO SCH (09:42)
[2021-05-26] MEDS: Docusate Sodium 100 MG Cap PO SCH (09:43)
[2021-05-26] MEDS: Pramipexole 0.5 MG Tab PO SCH ×3 (09:43→20:29)
[2021-05-26] MEDS: LORazepam 0.5 MG Tab PO PRN ×2 (09:43→20:29)
[2021-05-26] MEDS: hydrOXYzine HCl 25 MG Tab PO PRN (09:44)
[2021-05-26] MEDS: oxyCODONE 5 MG Tab PO PRN ×2 (09:44→20:29)
[2021-05-26] MEDS: Zinc (Zinc Gluconate) 50 MG Tab PO SCH (09:44)
[2021-05-26] MEDS: Sertraline 50 MG Tab PO SCH (09:44)
[2021-05-26] MEDS: DAPTOmycin 500 MG Vial IV SCH (09:48)
[2021-05-26] MEDS: Sodium Chloride 0.9% 10 ML Syringe IV PRN (09:52)
[2021-05-26] MEDS: Nystatin Topical Powder 15 GM Bottle TOP SCH (09:53)
[2021-05-26] MEDS ORDERED: Nystatin Topical Powder 15 GM Bottle TOP PRN (14:41)
[2021-05-26] MEDS: Sodium Chloride 0.9% 100 ML IV SCH (22:28)
[2021-05-27] MEDS: Sodium Chloride 0.9% 10 ML Syringe IV PRN ×3 (05:48→13:39)
[2021-05-27] MEDS: Cefepime 2 GM in Sodium Chloride 0.9% 50 ML IV SCH ×3 (05:51→21:23)
[2021-05-27] MEDS: Pantoprazole 40 MG Tab.CR PO SCH ×2 (06:40→18:24)
[2021-05-27] MEDS: Cholecalciferol (Vitamin D3) 25 MCG Tab PO SCH (08:58)
[2021-05-27] MEDS: Zinc (Zinc Gluconate) 50 MG Tab PO SCH (08:59)
[2021-05-27] MEDS: Docusate Sodium 100 MG Cap PO SCH (08:59)
[2021-05-27] MEDS: LORazepam 0.5 MG Tab PO PRN ×2 (08:59→21:22)
[2021-05-27] MEDS: oxyCODONE 5 MG Tab PO PRN ×2 (09:00→21:22)
[2021-05-27] MEDS: Sertraline 50 MG Tab PO SCH (09:00)
[2021-05-27] MEDS: Pramipexole 0.5 MG Tab PO SCH ×3 (09:00→21:22)
[2021-05-27] MEDS: DAPTOmycin 500 MG Vial IV SCH (09:01)
[2021-05-27] MEDS: hydrOXYzine HCl 25 MG Tab PO PRN ×2 (09:05→21:22)
[2021-05-28] MEDS: Sodium Chloride 0.9% 100 ML IV SCH (05:38)
[2021-05-28] MEDS: Cefepime 2 GM in Sodium Chloride 0.9% 50 ML IV SCH ×3 (05:39→21:13)
[2021-05-28] MEDS: Pantoprazole 40 MG Tab.CR PO SCH ×2 (06:30→17:29)
[2021-05-28] MEDS: Docusate Sodium 100 MG Cap PO SCH (09:29)
[2021-05-28] MEDS: Sertraline 50 MG Tab PO SCH (09:29)
[2021-05-28] MEDS: Zinc (Zinc Gluconate) 50 MG Tab PO SCH (09:30)
[2021-05-28] MEDS: Cholecalciferol (Vitamin D3) 25 MCG Tab PO SCH (09:30)
[2021-05-28] MEDS: LORazepam 0.5 MG Tab PO PRN ×2 (09:30→21:14)
[2021-05-28] MEDS: hydrOXYzine HCl 25 MG Tab PO PRN ×2 (09:30→21:14)
[2021-05-28] MEDS: Pramipexole 0.5 MG Tab PO SCH ×3 (09:31→21:14)
[2021-05-28] MEDS: DAPTOmycin 500 MG Vial IV SCH (09:31)
[2021-05-28] MEDS: oxyCODONE 5 MG Tab PO PRN ×2 (09:31→21:14)
[2021-05-28] MEDS: Sodium Chloride 0.9% 10 ML Syringe IV PRN ×2 (09:35→14:10)
[2021-05-29] MEDS: Cefepime 2 GM in Sodium Chloride 0.9% 50 ML IV SCH ×4 (05:53→21:08)
[2021-05-29] MEDS: Sodium Chloride 0.9% 100 ML IV SCH (05:54)
[2021-05-29] MEDS: Pantoprazole 40 MG Tab.CR PO SCH ×3 (05:54→18:07)
[2021-05-29] MEDS: Sertraline 50 MG Tab PO SCH (09:03)
[2021-05-29] MEDS: LORazepam 0.5 MG Tab PO PRN ×2 (09:03→20:19)
[2021-05-29] MEDS: Cholecalciferol (Vitamin D3) 25 MCG Tab PO SCH (09:03)
[2021-05-29] MEDS: Zinc (Zinc Gluconate) 50 MG Tab PO SCH (09:03)
[2021-05-29] MEDS: Docusate Sodium 100 MG Cap PO SCH (09:03)
[2021-05-29] MEDS: oxyCODONE 5 MG Tab PO PRN ×2 (09:03→20:19)
[2021-05-29] MEDS: Pramipexole 0.5 MG Tab PO SCH ×3 (09:03→20:19)
[2021-05-29] MEDS: hydrOXYzine HCl 25 MG Tab PO PRN (09:03)
[2021-05-29] MEDS: DAPTOmycin 500 MG Vial IV SCH (09:05)
[2021-05-29] MEDS: Sodium Chloride 0.9% 10 ML Syringe IV PRN (09:05)
[2021-05-30] MEDS: Cefepime 2 GM in Sodium Chloride 0.9% 50 ML IV SCH ×3 (05:22→21:35)
[2021-05-30] MEDS: Sodium Chloride 0.9% 100 ML IV SCH (05:23)
[2021-05-30] MEDS: Pantoprazole 40 MG Tab.CR PO SCH ×3 (05:40→17:51)
[2021-05-30] MEDS: Pramipexole 0.5 MG Tab PO SCH ×3 (09:21→20:13)
[2021-05-30] MEDS: Cholecalciferol (Vitamin D3) 25 MCG Tab PO SCH (09:21)
[2021-05-30] MEDS: Docusate Sodium 100 MG Cap PO SCH (09:21)
[2021-05-30] MEDS: Zinc (Zinc Gluconate) 50 MG Tab PO SCH (09:21)
[2021-05-30] MEDS: Sertraline 50 MG Tab PO SCH (09:21)
[2021-05-30] MEDS: LORazepam 0.5 MG Tab PO PRN ×2 (09:41→20:13)
[2021-05-30] MEDS: oxyCODONE 5 MG Tab PO PRN ×2 (09:41→20:13)
[2021-05-30] MEDS: DAPTOmycin 500 MG Vial IV SCH (09:53)
[2021-05-30] MEDS: Bacitracin Oint 30 GM Tube TOP SCH ×2 (09:59→20:17)
[2021-05-31] MEDS: Cefepime 2 GM in Sodium Chloride 0.9% 50 ML IV SCH ×4 (05:04→22:56)
[2021-05-31] MEDS: DAPTOmycin 500 MG Vial IV SCH (05:05)
[2021-05-31] MEDS: Pantoprazole 40 MG Tab.CR PO SCH ×3 (05:40→17:31)
[2021-05-31] MEDS: Zinc (Zinc Gluconate) 50 MG Tab PO SCH (08:43)
[2021-05-31] MEDS: Pramipexole 0.5 MG Tab PO SCH ×3 (08:43→20:26)
[2021-05-31] MEDS: Docusate Sodium 100 MG Cap PO SCH (08:44)
[2021-05-31] MEDS: Sertraline 50 MG Tab PO SCH (08:44)
[2021-05-31] MEDS: Bacitracin Oint 30 GM Tube TOP SCH ×2 (08:44→21:20)
[2021-05-31] MEDS: Cholecalciferol (Vitamin D3) 25 MCG Tab PO SCH (08:44)
[2021-05-31] MEDS: Prochlorperazine 5 MG Tab PO PRN ×2 (12:05→19:11)
[2021-05-31] MEDS: LORazepam 0.5 MG Tab PO PRN (20:26)
[2021-05-31] MEDS: oxyCODONE 5 MG Tab PO PRN (20:27)
[2021-05-31] MEDS: Sodium Chloride 0.9% 100 ML IV SCH (20:29)
[2021-06-01] MEDS: DAPTOmycin 500 MG Vial IV SCH (06:08)
[2021-06-01] MEDS: Pantoprazole 40 MG Tab.CR PO SCH ×3 (06:08→18:02)
[2021-06-01] MEDS: Cefepime 2 GM in Sodium Chloride 0.9% 50 ML IV SCH ×3 (06:09→21:17)
[2021-06-01] MEDS: Sertraline 50 MG Tab PO SCH (08:32)
[2021-06-01] MEDS: LORazepam 0.5 MG Tab PO PRN ×2 (08:32→21:25)
[2021-06-01] MEDS: oxyCODONE 5 MG Tab PO PRN ×2 (08:32→21:25)
[2021-06-01] MEDS: Pramipexole 0.5 MG Tab PO SCH ×3 (08:32→21:17)
[2021-06-01] MEDS: Bacitracin Oint 30 GM Tube TOP SCH ×2 (08:32→21:16)
[2021-06-01] MEDS: Docusate Sodium 100 MG Cap PO SCH (08:32)
[2021-06-01] MEDS: Cholecalciferol (Vitamin D3) 25 MCG Tab PO SCH (08:32)
[2021-06-01] MEDS: Zinc (Zinc Gluconate) 50 MG Tab PO SCH (08:32)
[2021-06-01] MEDS: Sodium Chloride 0.9% 100 ML IV SCH (15:31)
[2021-06-01] MEDS: hydrOXYzine HCl 25 MG Tab PO PRN (21:25)
[2021-06-02] MEDS: Pantoprazole 40 MG Tab.CR PO SCH ×3 (06:05→17:21)
[2021-06-02] MEDS: Cefepime 2 GM in Sodium Chloride 0.9% 50 ML IV SCH ×3 (06:05→21:13)
[2021-06-02] MEDS: DAPTOmycin 500 MG Vial IV SCH (06:05)
[2021-06-02] MEDS: Pramipexole 0.5 MG Tab PO SCH ×3 (08:58→20:26)
[2021-06-02] MEDS: Cholecalciferol (Vitamin D3) 25 MCG Tab PO SCH (08:58)
[2021-06-02] MEDS: Zinc (Zinc Gluconate) 50 MG Tab PO SCH (08:58)
[2021-06-02] MEDS: Bacitracin Oint 30 GM Tube TOP SCH ×2 (08:58→20:27)
[2021-06-02] MEDS: Sertraline 50 MG Tab PO SCH (08:58)
[2021-06-02] MEDS: Docusate Sodium 100 MG Cap PO SCH (08:59)
[2021-06-02] MEDS: LORazepam 0.5 MG Tab PO PRN ×2 (08:59→20:26)
[2021-06-02] MEDS: oxyCODONE 5 MG Tab PO PRN ×2 (08:59→20:25)
[2021-06-03] MEDS: Sodium Chloride 0.9% 100 ML IV SCH (05:09)
[2021-06-03] MEDS: Cefepime 2 GM in Sodium Chloride 0.9% 50 ML IV SCH ×3 (05:09→21:33)
[2021-06-03] MEDS: Pantoprazole 40 MG Tab.CR PO SCH ×3 (05:39→18:30)
[2021-06-03] MEDS: DAPTOmycin 500 MG Vial IV SCH (05:39)
[2021-06-03] MEDS: Cholecalciferol (Vitamin D3) 25 MCG Tab PO SCH (09:04)
[2021-06-03] MEDS: Pramipexole 0.5 MG Tab PO SCH ×3 (09:04→20:48)
[2021-06-03] MEDS: oxyCODONE 5 MG Tab PO PRN ×2 (09:04→20:48)
[2021-06-03] MEDS: Docusate Sodium 100 MG Cap PO SCH (09:04)
[2021-06-03] MEDS: LORazepam 0.5 MG Tab PO PRN ×2 (09:05→20:48)
[2021-06-03] MEDS: Sertraline 50 MG Tab PO SCH (09:05)
[2021-06-03] MEDS: Zinc (Zinc Gluconate) 50 MG Tab PO SCH (09:05)
[2021-06-03] MEDS: Bacitracin Oint 30 GM Tube TOP SCH ×2 (09:06→20:49)
[2021-06-04] MEDS: Sodium Chloride 0.9% 100 ML IV SCH ×2 (05:16→21:07)
[2021-06-04] MEDS: Sodium Chloride 0.9% 10 ML Syringe IV PRN (05:16)
[2021-06-04] MEDS: Pantoprazole 40 MG Tab.CR PO SCH ×3 (05:16→18:38)
[2021-06-04] MEDS: DAPTOmycin 500 MG Vial IV SCH (05:16)
[2021-06-04] MEDS: Cefepime 2 GM in Sodium Chloride 0.9% 50 ML IV SCH ×3 (05:16→21:06)
[2021-06-04] MEDS: Pramipexole 0.5 MG Tab PO SCH ×3 (08:11→20:32)
[2021-06-04] MEDS: LORazepam 0.5 MG Tab PO PRN ×2 (08:12→20:32)
[2021-06-04] MEDS: Zinc (Zinc Gluconate) 50 MG Tab PO SCH (08:12)
[2021-06-04] MEDS: Cholecalciferol (Vitamin D3) 25 MCG Tab PO SCH (08:12)
[2021-06-04] MEDS: Docusate Sodium 100 MG Cap PO SCH (08:12)
[2021-06-04] MEDS: Sertraline 50 MG Tab PO SCH (08:12)
[2021-06-04] MEDS: oxyCODONE 5 MG Tab PO PRN ×2 (08:12→20:32)
[2021-06-04] MEDS: Bacitracin Oint 30 GM Tube TOP SCH ×2 (08:16→20:38)
[2021-06-05] MEDS: DAPTOmycin 500 MG Vial IV SCH (05:11)
[2021-06-05] MEDS: Cefepime 2 GM in Sodium Chloride 0.9% 50 ML IV SCH (05:11)
[2021-06-05] MEDS: Pantoprazole 40 MG Tab.CR PO SCH ×3 (05:13→17:16)
[2021-06-05] MEDS: Pramipexole 0.5 MG Tab PO SCH ×3 (08:30→20:25)
[2021-06-05] MEDS: oxyCODONE 5 MG Tab PO PRN ×2 (08:30→20:25)
[2021-06-05] MEDS: Zinc (Zinc Gluconate) 50 MG Tab PO SCH (08:30)
[2021-06-05] MEDS: LORazepam 0.5 MG Tab PO PRN ×2 (08:31→20:26)
[2021-06-05] MEDS: Sertraline 50 MG Tab PO SCH (08:31)
[2021-06-05] MEDS: hydrOXYzine HCl 25 MG Tab PO PRN (08:31)
[2021-06-05] MEDS: Bacitracin Oint 30 GM Tube TOP SCH ×2 (08:31→20:26)
[2021-06-05] MEDS: Docusate Sodium 100 MG Cap PO SCH (08:31)
[2021-06-05] MEDS: Cholecalciferol (Vitamin D3) 25 MCG Tab PO SCH (08:31)
[2021-06-06] MEDS: Cefepime 2 GM in Sodium Chloride 0.9% 50 ML IV SCH (05:41)
[2021-06-06] MEDS: Pantoprazole 40 MG Tab.CR PO SCH ×3 (05:42→18:33)
[2021-06-06] MEDS: Sertraline 50 MG Tab PO SCH (09:22)
[2021-06-06] MEDS: Pramipexole 0.5 MG Tab PO SCH ×3 (09:22→20:37)
[2021-06-06] MEDS: Docusate Sodium 100 MG Cap PO SCH (09:22)
[2021-06-06] MEDS: Zinc (Zinc Gluconate) 50 MG Tab PO SCH (09:22)
[2021-06-06] MEDS: Cholecalciferol (Vitamin D3) 25 MCG Tab PO SCH (09:23)
[2021-06-06] MEDS: Bacitracin Oint 30 GM Tube TOP SCH ×2 (09:32→20:36)
[2021-06-06] MEDS: oxyCODONE 5 MG Tab PO PRN ×2 (09:36→20:38)
[2021-06-06] MEDS: LORazepam 0.5 MG Tab PO PRN ×2 (09:36→20:37)
[2021-06-07] MEDS: Sodium Chloride 0.9% 100 ML IV SCH (05:56)
[2021-06-07] MEDS: DAPTOmycin 500 MG Vial IV SCH (05:56)
[2021-06-07] MEDS: Pantoprazole 40 MG Tab.CR PO SCH ×3 (05:57→18:36)
[2021-06-07] MEDS: Cefepime 2 GM in Sodium Chloride 0.9% 50 ML IV SCH (05:57)
[2021-06-07] MEDS: Docusate Sodium 100 MG Cap PO SCH (08:24)
[2021-06-07] MEDS: LORazepam 0.5 MG Tab PO PRN ×2 (08:24→20:31)
[2021-06-07] MEDS: Pramipexole 0.5 MG Tab PO SCH ×3 (08:24→20:31)
[2021-06-07] MEDS: oxyCODONE 5 MG Tab PO PRN ×2 (08:24→20:30)
[2021-06-07] MEDS: Zinc (Zinc Gluconate) 50 MG Tab PO SCH (08:24)
[2021-06-07] MEDS: Cholecalciferol (Vitamin D3) 25 MCG Tab PO SCH (08:24)
[2021-06-07] MEDS: Sertraline 50 MG Tab PO SCH (08:24)
[2021-06-07] MEDS: Bacitracin Oint 30 GM Tube TOP SCH ×2 (08:25→20:32)
[2021-06-08] MEDS: Pantoprazole 40 MG Tab.CR PO SCH ×3 (06:03→17:43)
[2021-06-08] MEDS: Cefepime 2 GM in Sodium Chloride 0.9% 50 ML IV SCH (06:03)
[2021-06-08 07:52] LABS: ANION GAP 14.7 mmol/L (5-15)
[2021-06-08] MEDS: Cholecalciferol (Vitamin D3) 25 MCG Tab PO SCH (08:02)
[2021-06-08] MEDS: Sertraline 50 MG Tab PO SCH (08:03)
[2021-06-08] MEDS: Docusate Sodium 100 MG Cap PO SCH (08:03)
[2021-06-08] MEDS: Zinc (Zinc Gluconate) 50 MG Tab PO SCH (08:03)
[2021-06-08] MEDS: oxyCODONE 5 MG Tab PO PRN ×2 (08:03→20:44)
[2021-06-08] MEDS: Pramipexole 0.5 MG Tab PO SCH ×3 (08:03→20:43)
[2021-06-08] MEDS: hydrOXYzine HCl 25 MG Tab PO PRN (08:03)
[2021-06-08] MEDS: LORazepam 0.5 MG Tab PO PRN ×2 (08:03→20:43)
[2021-06-08] MEDS: Bacitracin Oint 30 GM Tube TOP SCH ×2 (08:08→20:44)
[2021-06-09] MEDS: Cefepime 2 GM in Sodium Chloride 0.9% 50 ML IV SCH (05:15)
[2021-06-09] MEDS: DAPTOmycin 500 MG Vial IV SCH (05:15)
[2021-06-09] MEDS ORDERED: Sodium Chloride 0.9% 1,000 ML IV SCH (06:00)
[2021-06-09 06:07] VITALS: BP 138/75; PULSE 84
[2021-06-09] MEDS: Pantoprazole 40 MG Tab.CR PO SCH (07:53)
[2021-06-09] MEDS: Bacitracin Oint 30 GM Tube TOP SCH ×2 (07:53→08:18)
[2021-06-09] MEDS: Pramipexole 0.5 MG Tab PO SCH ×2 (08:16→16:45)
[2021-06-09] MEDS: Cholecalciferol (Vitamin D3) 25 MCG Tab PO SCH (08:16)
[2021-06-09] MEDS: Docusate Sodium 100 MG Cap PO SCH (08:16)
[2021-06-09] MEDS: Zinc (Zinc Gluconate) 50 MG Tab PO SCH (08:16)
[2021-06-09] MEDS: Sertraline 50 MG Tab PO SCH (08:16)
[2021-06-09] MEDS: oxyCODONE 5 MG Tab PO PRN (08:17)
[2021-06-09] MEDS: LORazepam 0.5 MG Tab PO PRN (08:18)
== END 2021-06-09 19:55 | disposition home or self-care (01) | DRG 540 ==
LOC: KA.MS 17:11
PROVIDERS: ADMIT Internal Medicine; ATTEND Internal Medicine
DX: M86.8X8 Other osteomyelitis, other site (principal); D84.9 Immunodeficiency, unspecified; K59.09 Other constipation; K21.9 Gastro-esophageal reflux disease without esophagitis; M19.90 Unspecified osteoarthritis, unspecified site; G89.29 Other chronic pain; M54.2 Cervicalgia; M54.9 Dorsalgia, unspecified; F41.9 Anxiety disorder, unspecified; D64.9 Anemia, unspecified; J44.9 Chronic obstructive pulmonary disease, unspecified; E78.5 Hyperlipidemia, unspecified; G25.81 Restless legs syndrome; Z20.822 Contact with and (suspected) exposure to COVID-19; Z98.890 Other specified postprocedural states; Z88.1 Allergy status to other antibiotic agents; Z86.19 Personal history of other infectious and parasitic diseases; Z79.899 Other long term (current) drug therapy
CPT/HCPCS: 36415; 80048; 82550; 82565; 84460; 85025; A9270-GY; J0692; J0878; J7030; Q0164; U0002

== ENCOUNTER 2021-07-18 14:53 | Inpatient (IN) | payer MEDICARE, BC, OTHER ==
[2021-08-01] MEDS ORDERED: Fluticasone NASAL Spray 16 GM Bottle NAS PRN (15:57)
[2021-08-01] MEDS ORDERED: Albuterol 8 GM Inhaler INH PRN (15:57)
[2021-08-01] MEDS ORDERED: hydrOXYzine HCl 25 MG Tab PO PRN (15:57)
[2021-08-01] MEDS ORDERED: Diclofenac Sodium 1% Gel 100 GM Tube TOP PRN (15:57)
[2021-08-01] MEDS ORDERED: Prochlorperazine 5 MG Tab PO PRN (15:57)
[2021-08-01] MEDS ORDERED: Albuterol/Ipratropium 3.0-0.5 MG/3 ML Neb Soln INH PRN (15:57)
[2021-08-01] MEDS: Acetaminophen 500 MG Tab PO PRN (18:43)
[2021-08-01] MEDS ORDERED: Nystatin Topical Powder 15 GM Bottle TOP PRN (20:33)
[2021-08-01] MEDS: oxyCODONE 5 MG Tab PO PRN (20:47)
[2021-08-01] MEDS: Pramipexole 0.5 MG Tab PO SCH (20:47)
[2021-08-01] MEDS: LORazepam 0.5 MG Tab PO PRN (20:48)
[2021-08-01] MEDS ORDERED: CLINDAMYCIN IV SCH (21:00)
[2021-08-01] MEDS ORDERED: SOD CHLOR 0.9% IV SCH (21:00)
[2021-08-01] MEDS ORDERED: Nystatin Topical Powder 15 GM Bottle TOP SCH (21:00)
[2021-08-01] MEDS ORDERED: [UNRECOGNIZED DRUG - OTHER] IV SCH (21:00)
[2021-08-01] MEDS: Pantoprazole 40 MG Tab.CR PO SCH (22:14)
[2021-08-02] MEDS: Pantoprazole 40 MG Tab.CR PO SCH ×2 (07:32→22:47)
[2021-08-02] MEDS ORDERED: CLOBETASOL PROPIONATE TOP SCH (09:00)
[2021-08-02] MEDS ORDERED: FLUOCINONIDE TOP SCH (09:00)
[2021-08-02] MEDS: Zinc (Zinc Gluconate) 50 MG Tab PO SCH (09:23)
[2021-08-02] MEDS: Sertraline 50 MG Tab PO SCH (09:24)
[2021-08-02] MEDS: oxyCODONE 5 MG Tab PO PRN ×3 (09:24→22:47)
[2021-08-02] MEDS: Cyclobenzaprine 10 MG Tab PO PRN (09:24)
[2021-08-02] MEDS: Cholecalciferol (Vitamin D3) 25 MCG Tab PO SCH (09:25)
[2021-08-02] MEDS: LORazepam 0.5 MG Tab PO PRN ×2 (09:25→20:07)
[2021-08-02] MEDS: Docusate Sodium 100 MG Cap PO SCH (09:26)
[2021-08-02] MEDS: Pramipexole 0.5 MG Tab PO SCH ×3 (09:26→20:07)
[2021-08-02] MEDS: Acetaminophen 500 MG Tab PO PRN (21:01)
[2021-08-03] MEDS: Pantoprazole 40 MG Tab.CR PO SCH ×3 (05:42→21:02)
[2021-08-03] MEDS: Cholecalciferol (Vitamin D3) 25 MCG Tab PO SCH (08:37)
[2021-08-03] MEDS: Pramipexole 0.5 MG Tab PO SCH ×3 (08:38→21:02)
[2021-08-03] MEDS: Sertraline 50 MG Tab PO SCH (08:38)
[2021-08-03] MEDS: Docusate Sodium 100 MG Cap PO SCH (08:38)
[2021-08-03] MEDS: oxyCODONE 5 MG Tab PO PRN ×2 (08:39→21:01)
[2021-08-03] MEDS: Zinc (Zinc Gluconate) 50 MG Tab PO SCH (08:39)
[2021-08-03] MEDS: LORazepam 0.5 MG Tab PO PRN ×2 (08:40→21:02)
[2021-08-04] MEDS: Pantoprazole 40 MG Tab.CR PO SCH ×3 (06:17→21:33)
[2021-08-04] MEDS: Pramipexole 0.5 MG Tab PO SCH ×3 (08:39→20:35)
[2021-08-04] MEDS: Zinc (Zinc Gluconate) 50 MG Tab PO SCH (08:39)
[2021-08-04] MEDS: Cholecalciferol (Vitamin D3) 25 MCG Tab PO SCH (08:39)
[2021-08-04] MEDS: oxyCODONE 5 MG Tab PO PRN ×2 (08:39→18:06)
[2021-08-04] MEDS: Sertraline 50 MG Tab PO SCH (08:39)
[2021-08-04] MEDS: LORazepam 0.5 MG Tab PO PRN ×2 (08:40→20:35)
[2021-08-04] MEDS: Docusate Sodium 100 MG Cap PO SCH (08:44)
[2021-08-04] MEDS: Cyclobenzaprine 10 MG Tab PO PRN (20:34)
[2021-08-05] MEDS: Pantoprazole 40 MG Tab.CR PO SCH ×4 (06:02→21:01)
[2021-08-05] MEDS: Cholecalciferol (Vitamin D3) 25 MCG Tab PO SCH (09:01)
[2021-08-05] MEDS: Pramipexole 0.5 MG Tab PO SCH ×3 (09:01→20:34)
[2021-08-05] MEDS: Docusate Sodium 100 MG Cap PO SCH (09:01)
[2021-08-05] MEDS: Zinc (Zinc Gluconate) 50 MG Tab PO SCH (09:02)
[2021-08-05] MEDS: LORazepam 0.5 MG Tab PO PRN ×2 (09:02→20:35)
[2021-08-05] MEDS: oxyCODONE 5 MG Tab PO PRN ×2 (09:02→20:35)
[2021-08-05] MEDS: Sertraline 50 MG Tab PO SCH (09:02)
[2021-08-06] MEDS: Pantoprazole 40 MG Tab.CR PO SCH ×4 (06:04→22:00)
[2021-08-06] MEDS: oxyCODONE 5 MG Tab PO PRN ×2 (08:48→20:30)
[2021-08-06] MEDS: Cholecalciferol (Vitamin D3) 25 MCG Tab PO SCH (08:48)
[2021-08-06] MEDS: Pramipexole 0.5 MG Tab PO SCH ×3 (08:48→20:29)
[2021-08-06] MEDS: Sertraline 50 MG Tab PO SCH (08:49)
[2021-08-06] MEDS: Zinc (Zinc Gluconate) 50 MG Tab PO SCH (08:49)
[2021-08-06] MEDS: Docusate Sodium 100 MG Cap PO SCH (08:49)
[2021-08-06] MEDS: LORazepam 0.5 MG Tab PO PRN ×2 (08:49→20:30)
[2021-08-06] MEDS: Cyclobenzaprine 10 MG Tab PO PRN (13:39)
[2021-08-06] MEDS: Acetaminophen 500 MG Tab PO PRN (13:39)
[2021-08-07] MEDS: Pantoprazole 40 MG Tab.CR PO SCH ×4 (05:33→21:24)
[2021-08-07] MEDS: Sertraline 50 MG Tab PO SCH (08:14)
[2021-08-07] MEDS: Docusate Sodium 100 MG Cap PO SCH (08:14)
[2021-08-07] MEDS: Cholecalciferol (Vitamin D3) 25 MCG Tab PO SCH (08:14)
[2021-08-07] MEDS: Zinc (Zinc Gluconate) 50 MG Tab PO SCH (08:14)
[2021-08-07] MEDS: Pramipexole 0.5 MG Tab PO SCH ×4 (09:02→19:59)
[2021-08-07] MEDS: oxyCODONE 5 MG Tab PO PRN ×2 (09:02→19:39)
[2021-08-07] MEDS: LORazepam 0.5 MG Tab PO PRN ×2 (09:03→19:40)
[2021-08-08] MEDS: Pantoprazole 40 MG Tab.CR PO SCH ×3 (06:02→20:59)
[2021-08-08] MEDS: Docusate Sodium 100 MG Cap PO SCH (08:18)
[2021-08-08] MEDS: Zinc (Zinc Gluconate) 50 MG Tab PO SCH (08:19)
[2021-08-08] MEDS: Pramipexole 0.5 MG Tab PO SCH ×3 (08:19→20:59)
[2021-08-08] MEDS: Cholecalciferol (Vitamin D3) 25 MCG Tab PO SCH (08:19)
[2021-08-08] MEDS: Sertraline 50 MG Tab PO SCH (08:20)
[2021-08-08] MEDS: oxyCODONE 5 MG Tab PO PRN ×2 (09:31→20:58)
[2021-08-08] MEDS: LORazepam 0.5 MG Tab PO PRN ×2 (09:31→20:58)
[2021-08-08] MEDS: Cyclobenzaprine 10 MG Tab PO PRN (20:59)
[2021-08-09] MEDS: Pantoprazole 40 MG Tab.CR PO SCH ×4 (05:53→23:22)
[2021-08-09] MEDS: Pramipexole 0.5 MG Tab PO SCH ×3 (08:41→20:18)
[2021-08-09] MEDS: Zinc (Zinc Gluconate) 50 MG Tab PO SCH (08:41)
[2021-08-09] MEDS: Sertraline 50 MG Tab PO SCH (08:42)
[2021-08-09] MEDS: oxyCODONE 5 MG Tab PO PRN ×2 (08:42→20:19)
[2021-08-09] MEDS: Docusate Sodium 100 MG Cap PO SCH (08:42)
[2021-08-09] MEDS: Cholecalciferol (Vitamin D3) 25 MCG Tab PO SCH (08:43)
[2021-08-09] MEDS: LORazepam 0.5 MG Tab PO PRN ×2 (08:43→20:19)
[2021-08-10] MEDS: Pantoprazole 40 MG Tab.CR PO SCH ×3 (06:22→21:53)
[2021-08-10] MEDS: Pramipexole 0.5 MG Tab PO SCH ×3 (09:19→20:40)
[2021-08-10] MEDS: Zinc (Zinc Gluconate) 50 MG Tab PO SCH (09:20)
[2021-08-10] MEDS: Sertraline 50 MG Tab PO SCH (09:20)
[2021-08-10] MEDS: Cholecalciferol (Vitamin D3) 25 MCG Tab PO SCH (09:20)
[2021-08-10] MEDS: Docusate Sodium 100 MG Cap PO SCH (09:20)
[2021-08-10] MEDS: oxyCODONE 5 MG Tab PO PRN ×2 (10:27→20:38)
[2021-08-10] MEDS: LORazepam 0.5 MG Tab PO PRN ×2 (10:28→20:40)
[2021-08-11] MEDS: Pantoprazole 40 MG Tab.CR PO SCH ×3 (05:42→21:03)
[2021-08-11] MEDS: LORazepam 0.5 MG Tab PO PRN ×2 (09:10→21:15)
[2021-08-11] MEDS: Zinc (Zinc Gluconate) 50 MG Tab PO SCH (09:11)
[2021-08-11] MEDS: Sertraline 50 MG Tab PO SCH (09:11)
[2021-08-11] MEDS: oxyCODONE 5 MG Tab PO PRN ×2 (09:11→21:13)
[2021-08-11] MEDS: Pramipexole 0.5 MG Tab PO SCH ×3 (09:11→21:03)
[2021-08-11] MEDS: Cholecalciferol (Vitamin D3) 25 MCG Tab PO SCH (09:11)
[2021-08-11] MEDS: Docusate Sodium 100 MG Cap PO SCH (09:12)
[2021-08-11] MEDS: Sodium Chloride 0.9% 10 ML Syringe FLUSH PRN ×2 (21:05→22:10)
[2021-08-12] MEDS: Pantoprazole 40 MG Tab.CR PO SCH ×2 (07:20→21:04)
[2021-08-12] MEDS: Zinc (Zinc Gluconate) 50 MG Tab PO SCH (09:34)
[2021-08-12] MEDS: Sertraline 50 MG Tab PO SCH (09:34)
[2021-08-12] MEDS: LORazepam 0.5 MG Tab PO PRN ×2 (09:35→21:03)
[2021-08-12] MEDS: Cholecalciferol (Vitamin D3) 25 MCG Tab PO SCH (09:35)
[2021-08-12] MEDS: Pramipexole 0.5 MG Tab PO SCH ×3 (09:35→21:04)
[2021-08-12] MEDS: oxyCODONE 5 MG Tab PO PRN ×2 (09:35→21:03)
[2021-08-12] MEDS: Docusate Sodium 100 MG Cap PO SCH (09:35)
[2021-08-12] MEDS: Sodium Chloride 0.9% 10 ML Syringe FLUSH PRN (20:59)
[2021-08-13] MEDS: Pantoprazole 40 MG Tab.CR PO SCH ×2 (06:29→21:30)
[2021-08-13] MEDS: Docusate Sodium 100 MG Cap PO SCH (09:19)
[2021-08-13] MEDS: Pramipexole 0.5 MG Tab PO SCH ×3 (09:19→20:01)
[2021-08-13] MEDS: Sertraline 50 MG Tab PO SCH (09:19)
[2021-08-13] MEDS: Cholecalciferol (Vitamin D3) 25 MCG Tab PO SCH (09:19)
[2021-08-13] MEDS: Zinc (Zinc Gluconate) 50 MG Tab PO SCH (09:19)
[2021-08-13] MEDS: oxyCODONE 5 MG Tab PO PRN ×2 (09:19→20:01)
[2021-08-13] MEDS: LORazepam 0.5 MG Tab PO PRN ×2 (09:20→20:01)
[2021-08-14] MEDS: Pantoprazole 40 MG Tab.CR PO SCH ×3 (05:24→21:19)
[2021-08-14] MEDS: oxyCODONE 5 MG Tab PO PRN ×2 (08:22→20:27)
[2021-08-14] MEDS: LORazepam 0.5 MG Tab PO PRN ×2 (08:22→20:26)
[2021-08-14] MEDS: Pramipexole 0.5 MG Tab PO SCH ×3 (08:22→20:21)
[2021-08-14] MEDS: Docusate Sodium 100 MG Cap PO SCH (08:22)
[2021-08-14] MEDS: Cholecalciferol (Vitamin D3) 25 MCG Tab PO SCH (08:23)
[2021-08-14] MEDS: Zinc (Zinc Gluconate) 50 MG Tab PO SCH (08:23)
[2021-08-14] MEDS: Sertraline 50 MG Tab PO SCH (08:23)
[2021-08-15] MEDS: Pantoprazole 40 MG Tab.CR PO SCH ×3 (06:11→21:30)
[2021-08-15] MEDS: Docusate Sodium 100 MG Cap PO SCH (08:53)
[2021-08-15] MEDS: oxyCODONE 5 MG Tab PO PRN ×2 (08:53→20:45)
[2021-08-15] MEDS: Pramipexole 0.5 MG Tab PO SCH ×3 (08:53→20:45)
[2021-08-15] MEDS: LORazepam 0.5 MG Tab PO PRN ×2 (08:53→20:44)
[2021-08-15] MEDS: Cholecalciferol (Vitamin D3) 25 MCG Tab PO SCH (08:53)
[2021-08-15] MEDS: Sertraline 50 MG Tab PO SCH (08:54)
[2021-08-15] MEDS: Zinc (Zinc Gluconate) 50 MG Tab PO SCH (08:54)
[2021-08-16] MEDS: Pantoprazole 40 MG Tab.CR PO SCH ×2 (05:47→06:30)
[2021-08-16 06:25] VITALS: BP 138/80; PULSE 85
[2021-08-16] MEDS: Cholecalciferol (Vitamin D3) 25 MCG Tab PO SCH (08:03)
[2021-08-16] MEDS: Docusate Sodium 100 MG Cap PO SCH (08:03)
[2021-08-16] MEDS: oxyCODONE 5 MG Tab PO PRN (08:04)
[2021-08-16] MEDS: Pramipexole 0.5 MG Tab PO SCH (08:04)
[2021-08-16] MEDS: Zinc (Zinc Gluconate) 50 MG Tab PO SCH (08:04)
[2021-08-16] MEDS: Sertraline 50 MG Tab PO SCH (08:04)
[2021-08-16] MEDS: LORazepam 0.5 MG Tab PO PRN (08:05)
== END 2021-08-16 11:10 | disposition home or self-care (01) | DRG 863 ==
LOC: KA.MS 08-01 16:58
PROVIDERS: ADMIT Internal Medicine; ATTEND Internal Medicine
DX: T81.41XA Infection following a procedure, superficial incisional surgical site, initial encounter (principal); D84.9 Immunodeficiency, unspecified; S01.00XA Unspecified open wound of scalp, initial encounter; J44.9 Chronic obstructive pulmonary disease, unspecified; F41.9 Anxiety disorder, unspecified; E78.5 Hyperlipidemia, unspecified; G25.81 Restless legs syndrome; K21.9 Gastro-esophageal reflux disease without esophagitis; G89.29 Other chronic pain; H54.7 Unspecified visual loss; I10 Essential (primary) hypertension; K59.09 Other constipation; M19.90 Unspecified osteoarthritis, unspecified site; M54.2 Cervicalgia; D50.9 Iron deficiency anemia, unspecified; Z86.19 Personal history of other infectious and parasitic diseases; Z98.890 Other specified postprocedural states; Z79.899 Other long term (current) drug therapy; Z88.1 Allergy status to other antibiotic agents; Z88.8 Allergy status to other drugs, medicaments and biological substances; Z87.01 Personal history of pneumonia (recurrent); Z87.891 Personal history of nicotine dependence
CPT/HCPCS: 97161-GP; 97605; 97606; A9270-GY; J3490; Q0164

== ENCOUNTER 2022-10-23 11:02 | Day surgery (SDC) | payer MEDICARE, BC, OTHER ==
[~2022-10-23 11:02] MED LIST: Lactated Ringers 1,000 ML IV SCH; Sodium Chloride 0.9% 10 ML Syringe FLUSH PRN
[2022-10-23] MEDS ORDERED: Midazolam 1 MG/ML 2 ML SDV ONE (11:12)
[2022-10-23] MEDS ORDERED: Propofol 200 MG/20 ML SDV ONE (11:13)
[2022-10-23 14:52] VITALS: BP 136/87; PULSE 86
== END 2022-10-23 13:24 | disposition home or self-care (01) ==
LOC: KA.SDS 11:02
PROVIDERS: ATTEND Surgery
DX: K57.30 Diverticulosis of large intestine without perforation or abscess without bleeding (principal); D17.79 Benign lipomatous neoplasm of other sites; K21.9 Gastro-esophageal reflux disease without esophagitis; L93.2 Other local lupus erythematosus; N18.30 Chronic kidney disease, stage 3 unspecified; J44.9 Chronic obstructive pulmonary disease, unspecified; F41.8 Other specified anxiety disorders; E78.5 Hyperlipidemia, unspecified; I73.9 Peripheral vascular disease, unspecified; I47.1 Supraventricular tachycardia; F17.200 Nicotine dependence, unspecified, uncomplicated; Z79.899 Other long term (current) drug therapy; Z86.010 Personal history of colon polyps; Z88.1 Allergy status to other antibiotic agents; Z88.8 Allergy status to other drugs, medicaments and biological substances
CPT/HCPCS: 45378; J2250; J2704; J7120